=== PATIENT | female | born 1950 | race African-American/Black ===

== ENCOUNTER → 2020-07-16 12:32 | Outpatient (BNVA) | payer MEDICARE, SELFPAY | PROVIDERS: PCP Internal Medicine; Referring Provider Internal Medicine; Visit Provider Dietitian, Registered | DX: Z76.89 Persons encountering health services in other specified circumstances (principal) ==

== ENCOUNTER 2020-07-26 10:54 | Outpatient (REF) | payer MEDICARE, SELFPAY ==
[2020-07-26 12:45] LABS: Hemoglobin 10.8 g/dl (12.0-16.0); Mean Corpuscular HGB Conc 30.9 g/dl (31.0-35.0); Mean Corpuscular Hemoglobin 27.4 pg (27.0-33.0); Mean Corpuscular Volume 88.8 fL (80-98); Mean Platelet Volume 10.6 fL (9.4-12.3); Platelet Count 312 X10*3/uL (160-400); Red Blood Count 3.94 X10*6/uL (4.20-5.50); Red Cell Distribution Width 16.8 % (11.0-16.0); White Blood Count 8.7 X10*3/uL (4.8-10.8)
[2020-07-26 13:33] LABS: Alanine Aminotransferase 12 U/L (0-31); Alkaline Phosphatase 81 U/L (39-117); Anion Gap 10 (12-20); Aspartate Amino Transferase 15 U/L (5-31); Bilirubin Total 0.4 mg/dL (0.0-1.0); Blood Urea Nitrogen 25 mg/dL (9-16); Calcium 9.6 mg/dL (8.4-10.2); Carbon Dioxide 29 mmol/L (22-29); Chloride 104 mmol/L (96-108); Cholesterol 133 mg/dL; Estimated Glomerular Filt Rate 44; Glucose Fasting 98 mg/dL (60-99); HDL Cholesterol 48 mg/dL; LDL Cholesterol Calculated 72 mg/dl; Potassium 4.3 mmol/l (3.3-5.1); Sodium 139 mmol/L (135-145); Total Protein 7.1 g/dL (6.5-8.0); Triglycerides 66 mg/dL
[2020-07-26 13:39] LABS: Creatinine Urine 91.29 mg/dL; Microalbum/Creatinine Ratio Ur 15.3 ug/mg cr
[2020-07-26 13:57] LABS: Free T4 (Free Thyroxine) 0.88 ng/dL (0.71-1.85)
[2020-07-26 14:37] LABS: Vitamin B12 417 pg/mL (200-900)
[2020-07-27 19:32] LABS: LDL Cholesterol Direct 68 mg/dL (<100)
== END 2020-07-26 10:55 | disposition home or self-care (01) ==
LOC: HO.LAB 10:54
PROVIDERS: PCP Internal Medicine; Referring Provider Internal Medicine; Visit Provider Internal Medicine Endocrinology, Diabetes & Metabolism
DX: E10.8 Type 1 diabetes mellitus with unspecified complications (principal); E10.21 Type 1 diabetes mellitus with diabetic nephropathy; E10.65 Type 1 diabetes mellitus with hyperglycemia; E10.42 Type 1 diabetes mellitus with diabetic polyneuropathy; E10.319 Type 1 diabetes mellitus with unspecified diabetic retinopathy without macular edema; E66.9 Obesity, unspecified; E04.2 Nontoxic multinodular goiter; E78.5 Hyperlipidemia, unspecified; I10 Essential (primary) hypertension; Z79.899 Other long term (current) drug therapy; Z96.41 Presence of insulin pump (external) (internal); Z79.4 Long term (current) use of insulin; Z79.82 Long term (current) use of aspirin
CPT/HCPCS: 36415; 80053; 80061; 82043; 82607; 82947; 83721; 84439; 84443; 85027; 99214

== ENCOUNTER 2020-08-01 10:29 | Outpatient (REF) | payer MEDICARE, SELFPAY ==
--- NOTE | 2020-08-01 11:01 | US_ITS ---
EXAMINATION: US THYROID CLINICAL INFORMATION: Nontoxic multinodular goiter. COMPARISON: Ultrasound thyroid soft tissue dated 06/23/2018 TECHNIQUE: Linear transducer norton-scale and color Doppler examination with attention to the region of the thyroid. FINDINGS: SIZE: Measurements of the thyroid lobes and nodules are given in sagittal, anteroposterior and transverse dimensions respectively. Right Thyroid Lobe: 4.2 x 1.7 x 1.3 cm, volume 4.7 mL. Previously 4.0 x 1.3 x 1.1 cm, volume 3.0 mL. Parenchyma: The gland echotexture is homogeneous. Thyroid vascularity is normal. Left Thyroid Lobe: 4.0 x 1.8 x 1.2 cm, volume 4.6 mL. Previously 4.0 x 1.5 x 1.3 cm, volume 4.1 mL. Parenchyma: The gland echotexture is homogeneous. Thyroid vascularity is normal. Isthmus: 0.46 cm in maximum AP dimension. Previously 0.40 cm. RIGHT THYROID LOBE: There are 4 nodules seen. 1. Location: Lower pole. Size: 0.58 x 0.38 x 0.34 cm. Previous: 0.34 x 0.35 x 0.20 cm. Nodule characteristics: Heterogeneous isoechoic, smooth, no color flow. 2. Location: Interpolar. Size: 0.25 x 0.22 x 0.24 cm. Previous: 0.29 x 0.26 x 0.17 cm. Nodule characteristics: Cyst. 3. Location: Interpolar. Size: 0.44 x 0.31 x 0.27 cm. Previous: 0.32 x 0.45 x 0.26 cm. Nodule characteristics: Cyst. 4. Location: Interpolar. Size: 0.59 x 0.48 x 0.60 cm. Previous: 0.41 x 0.42 x 0.40 cm. Nodule characteristics: Colloid cyst. ISTHMUS: No nodules. LEFT THYROID LOBE: There are 3 nodules seen. 1. Location: Interpolar. Size: 0.32 x 0.20 x 0.20 cm. Previous: Not previously seen. Nodule characteristics: Cyst. 2. Location: Interpolar. Size: 0.27 x 0.20 x 0.23 cm. Previous: Not previously seen. Nodule characteristics: Colloid cyst. 3. Location: Upper pole. Size: 0.87 x 0.71 x 0.70 cm. Previous: 0.72 x 0.56 x 0.67 cm. Nodule characteristics: Cyst with avascular internal septations, increased through-transmission of sound, no calcification or color flow. NODES: No lymphadenopathy is seen in the tissue surrounding the thyroid gland. IMPRESSION: 1. Left: Solid heterogeneous isoechoic nodule lower pole right under 1 cm. 2. Right: Cyst with avascular internal septations upper pole under 1 cm. 3. Bilateral: Multiple bilateral incidental tiny cysts.
== END 2020-08-01 10:30 | disposition home or self-care (01) ==
LOC: HO.US 10:29
PROVIDERS: PCP Internal Medicine; Visit Provider Internal Medicine Endocrinology, Diabetes & Metabolism
DX: E04.2 Nontoxic multinodular goiter (principal)
CPT/HCPCS: 76536

== ENCOUNTER → 2020-11-02 10:31 | Outpatient (BNVA) | payer MEDICARE, SELFPAY | PROVIDERS: PCP Internal Medicine; Visit Provider Dietitian, Registered ==

== ENCOUNTER → 2021-01-07 14:24 | Outpatient (BNVA) | payer MEDICARE, SELFPAY | PROVIDERS: PCP Internal Medicine; Visit Provider Internal Medicine Endocrinology, Diabetes & Metabolism | DX: E10.65 Type 1 diabetes mellitus with hyperglycemia (principal); E10.42 Type 1 diabetes mellitus with diabetic polyneuropathy; E11.319 Type 2 diabetes mellitus with unspecified diabetic retinopathy without macular edema; E04.2 Nontoxic multinodular goiter; E78.5 Hyperlipidemia, unspecified; I10 Essential (primary) hypertension; E66.9 Obesity, unspecified | CPT/HCPCS: 82947; 99212 ==

== ENCOUNTER → 2021-01-08 12:20 | Outpatient (BNVA) | payer MEDICARE, SELFPAY | PROVIDERS: PCP Internal Medicine; Visit Provider Dietitian, Registered ==

== ENCOUNTER → 2021-01-23 10:36 | Outpatient (BNVA) | payer MEDICARE, SELFPAY | PROVIDERS: Visit Provider Internal Medicine Endocrinology, Diabetes & Metabolism | DX: E10.65 Type 1 diabetes mellitus with hyperglycemia (principal); E10.42 Type 1 diabetes mellitus with diabetic polyneuropathy; E66.9 Obesity, unspecified; E78.5 Hyperlipidemia, unspecified; E04.2 Nontoxic multinodular goiter; E11.319 Type 2 diabetes mellitus with unspecified diabetic retinopathy without macular edema; I10 Essential (primary) hypertension | CPT/HCPCS: 82947; 99212 ==

== ENCOUNTER 2021-01-24 10:25 | Outpatient (REF) | payer MEDICARE, SELFPAY ==
--- NOTE | ~2021-01-24 | MM_ITS ---
EXAMINATION: MM SCREENING DIGITAL BREAST TOMOSYNTHESIS, BILATERAL CLINICAL INFORMATION: Screening. Asymptomatic. The lifetime risk of breast cancer based on the Tyrer-Cuzick Model is 4%. COMPARISON: Mammography: 08/31/2019, 08/12/2018, 12/14/2017, 06/22/2017 TECHNIQUE: Digital breast tomosynthesis is performed in both the craniocaudal and mediolateral oblique views along with computer-aided detection (CAD). Synthesized 2D images are generated from the tomosynthesis. FINDINGS: There are scattered areas of fibroglandular density (ACR BI-RADS breast composition Category b). Breast tissue composition borders on heterogeneously dense in the upper outer quadrants. Parenchymal pattern is similar to prior studies. There is no developing density or interval mass or architectural abnormality. No abnormal calcifications. No significant changes from prior exams. MM/MM tomosynthesis screening BI IMPRESSION: No mammographic evidence of malignancy. ASSESSMENT: BI-RADS 1: Negative RECOMMENDATION: Routine annual mammography screening. This patient's information was entered into a reminder system with a target due date for their next mammogram.
--- NOTE | ~2021-01-24 | MM_ITS ---
EXAMINATION: BONE DENSITOMETRY CLINICAL INDICATION: Encounter for screening for osteoporosis. COMPARISON: This is the patient's baseline examination. TECHNIQUE: Using a [employer] DXA System (software version: 13.1) manufactured by [employer], dual-energy x-ray absorptiometry was performed of the lumbar spine and left hip. The images are of good technical quality. Summary results are attached. FINDINGS: AP SPINE L1-L2 (excluding L3 and L4): The data of L1-L4 has been changed to exclude the L3 and L4 vertebral bodies, because degenerative change at these levels may cause overestimation of lumbar spine density. BMD 1.219 g/cm2, Z-score 0.8, T-score 0.5, normal. LEFT FEMUR, NECK: BMD 1.075 g/cm2, Z-score 0.7, T-score 0.3, normal. LEFT FEMUR, TOTAL: BMD 1.164 g/cm2, Z-score 1.4, T-score 1.2, normal. IDENTIFIED RISK FACTORS: History of adult fracture. Secondary osteoporosis (early menopause). Hysterectomy. HISTORY OF FRACTURE: Femur/hip. MEDICATIONS: Calcium supplement and/or multivitamin. Vitamin D. MM/XR DEXA axial skeleton IMPRESSION: 1. DIAGNOSIS: Normal bone density based on the lowest T-score value of 0.3 in the femoral neck applying World Health Organization criteria. 2. 10-YEAR FRACTURE RISK PREDICTION, FRAX: Major osteoporotic fracture (clinical spine, forearm, hip or shoulder) 4.6%. Hip fracture 0.2%. 3. Treatment Recommendations: NOF guidelines recommend consideration for treatment in postmenopausal women and men age 50 and older presenting with the following: -A hip or vertebral (clinical or morphometric) fracture. -T-score less than or equal to -2.5 at the femoral neck or spine after appropriate evaluation to exclude secondary causes. -Low bone mass at the hip or spine and a 10-year fracture probability by FRAX of greater than or equal to 3% for hip fracture or greater than or equal to 20% for major osteoporotic fracture based on the [place] adapted WHO algorithm. 4. Other Recommendations: All treatment decisions require clinical judgment and consideration of individual patient factors, including patient preferences, comorbidities, previous drug use, risk factors not captured in the FRAX model (e.g. frailty, falls, vitamin D deficiency, increased bone turnover, interval significant decline in bone density) and possible under or overestimation of fracture risk by FRAX. FUTURE SCAN RECOMMENDATION: People with diagnosed cases of osteoporosis or at high risk for fracture should have regular bone mineral density tests. For patients eligible for Medicare, routine testing is allowed once every 2 years. The testing frequency can be increased to one year for patients who have rapidly progressing disease, those who are receiving or discontinuing medical therapy to restore bone mass, or have additional risk factors.
== END 2021-01-24 10:26 | disposition home or self-care (01) ==
LOC: HO.MAMMO 10:25
PROVIDERS: Visit Provider Internal Medicine
DX: Z12.31 Encounter for screening mammogram for malignant neoplasm of breast (principal); Z13.820 Encounter for screening for osteoporosis; Z78.0 Asymptomatic menopausal state; Z79.899 Other long term (current) drug therapy; Z98.890 Other specified postprocedural states; Z87.81 Personal history of (healed) traumatic fracture
CPT/HCPCS: 77063; 77067; 77080

== ENCOUNTER 2021-01-29 17:17 | Outpatient (REF) | payer MEDICARE, SELFPAY | END 2021-01-29 17:18 | disposition home or self-care (01) | LOC: HO.HOSX 17:17 | PROVIDERS: Visit Provider Orthopaedic Surgery | DX: Z13.89 Encounter for screening for other disorder (principal) ==

== ENCOUNTER → 2021-02-04 14:22 | Outpatient (BNVA) | payer MEDICARE, SELFPAY | PROVIDERS: Visit Provider Orthopaedic Surgery | DX: M18.11 Unilateral primary osteoarthritis of first carpometacarpal joint, right hand (principal); M65.312 Trigger thumb, left thumb | CPT/HCPCS: 99202 ==

== ENCOUNTER → 2021-04-08 10:22 | Outpatient (BNVA) | payer MEDICARE, SELFPAY | PROVIDERS: Visit Provider Internal Medicine Endocrinology, Diabetes & Metabolism | DX: E10.65 Type 1 diabetes mellitus with hyperglycemia (principal); E10.42 Type 1 diabetes mellitus with diabetic polyneuropathy; E11.319 Type 2 diabetes mellitus with unspecified diabetic retinopathy without macular edema; E66.9 Obesity, unspecified; E78.5 Hyperlipidemia, unspecified; I10 Essential (primary) hypertension; E04.2 Nontoxic multinodular goiter | CPT/HCPCS: 82947; 99212 ==

== ENCOUNTER → 2021-05-03 10:22 | Outpatient (BNVA) | payer MEDICARE, SELFPAY | PROVIDERS: Visit Provider Dietitian, Registered | DX: E10.65 Type 1 diabetes mellitus with hyperglycemia (principal); Z79.4 Long term (current) use of insulin; Z96.41 Presence of insulin pump (external) (internal) | CPT/HCPCS: 97803 ==

== ENCOUNTER → 2021-07-24 09:52 | Outpatient (BNVA) | payer MEDICARE, SELFPAY | PROVIDERS: Visit Provider Internal Medicine | DX: E10.65 Type 1 diabetes mellitus with hyperglycemia (principal); E78.5 Hyperlipidemia, unspecified; E55.9 Vitamin D deficiency, unspecified; E04.2 Nontoxic multinodular goiter; I10 Essential (primary) hypertension; R01.1 Cardiac murmur, unspecified | CPT/HCPCS: 82947; 83036; 99212 ==

== ENCOUNTER 2021-07-25 09:23 | Outpatient (REF) | payer MEDICARE, SELFPAY ==
[2021-07-25 10:09] LABS: Estimated Average Glucose 197 mg/dL; Hemoglobin A1c % 8.5 %
[2021-07-25 10:35] LABS: Creatinine Urine 68.54 mg/dL; Microalbumin Urine < 5.0 mg/L
[2021-07-25 10:38] LABS: Alanine Aminotransferase 20 U/L (0-31); Alkaline Phosphatase 89 U/L (39-117); Anion Gap 11 (12-20); Aspartate Amino Transferase 21 U/L (5-31); Bilirubin Total 0.3 mg/dL (0.0-1.0); Blood Urea Nitrogen 15 mg/dL (9-16); Calcium 9.8 mg/dL (8.4-10.2); Carbon Dioxide 28 mmol/L (22-29); Chloride 101 mmol/L (96-108); Cholesterol 146 mg/dL; Estimated Glomerular Filt Rate 42; Glucose Random 135 mg/dL (60-115); HDL Cholesterol 48 mg/dL; LDL Cholesterol Calculated 87 mg/dl; Potassium 4.4 mmol/L (3.3-5.1); Sodium 136 mmol/L (135-145); Total Protein 7.3 g/dL (6.5-8.0); Triglycerides 59 mg/dL
[2021-07-25 10:50] LABS: Free T4 (Free Thyroxine) 0.85 ng/dL (0.71-1.85); Thyroid Stimulating Hormone 1.61 uIU/mL (0.32-4.0); Vitamin D 25-OH Total 41.2 ng/mL (>30)
[2021-07-26 05:26] LABS: LDL Cholesterol Direct 80 mg/dL (<100)
[2021-08-01 20:26] LABS: Glutamic acid decarboxylase Ab <5 IU/mL (<5)
[2021-08-02 17:46] LABS: Insulinoma associated 2 aatb <5.4 U/mL (<5.4)
[2021-08-13 15:51] LABS: Islet Cell Antibody Screen NEGATIVE (NEGATIVE)
== END 2021-07-25 09:24 | disposition home or self-care (01) ==
LOC: HO.LAB 09:23
PROVIDERS: Visit Provider Internal Medicine
DX: E10.65 Type 1 diabetes mellitus with hyperglycemia (principal); E04.2 Nontoxic multinodular goiter; E55.9 Vitamin D deficiency, unspecified
CPT/HCPCS: 36415; 80053; 80061; 82043; 82306; 83036; 83721; 84439; 84443; 84681; 86255; 86341

== ENCOUNTER → 2021-08-02 11:26 | Outpatient (BNVA) | payer MEDICARE, SELFPAY | PROVIDERS: Visit Provider Dietitian, Registered | DX: E10.42 Type 1 diabetes mellitus with diabetic polyneuropathy (principal); E10.319 Type 1 diabetes mellitus with unspecified diabetic retinopathy without macular edema; E78.5 Hyperlipidemia, unspecified; I10 Essential (primary) hypertension; E04.2 Nontoxic multinodular goiter; E55.9 Vitamin D deficiency, unspecified; E66.9 Obesity, unspecified; Z87.891 Personal history of nicotine dependence; Z68.34 Body mass index [BMI] 34.0-34.9, adult; Z88.0 Allergy status to penicillin; Z88.8 Allergy status to other drugs, medicaments and biological substances; Z71.3 Dietary counseling and surveillance | CPT/HCPCS: 97803 ==

== ENCOUNTER → 2021-08-19 10:22 | Outpatient (BNVA) | payer MEDICARE, SELFPAY | PROVIDERS: PCP Internal Medicine; Visit Provider Registered Nurse Diabetes Educator | DX: E10.65 Type 1 diabetes mellitus with hyperglycemia (principal) | CPT/HCPCS: 99211 ==

== ENCOUNTER 2021-09-03 14:25 | Outpatient (REF) | payer MEDICARE, SELFPAY ==
--- NOTE | ~2021-09-03 | US_ITS ---
EXAMINATION: US THYROID CLINICAL INFORMATION: Nontoxic multinodular goiter. COMPARISON: Thyroid ultrasound 08/01/2020. TECHNIQUE: Linear transducer norton-scale and color Doppler examination with attention to the region of the thyroid. FINDINGS: SIZE: Measurements of the thyroid lobes and nodules are given in sagittal, anteroposterior and transverse dimensions respectively. Right Thyroid Lobe: 4.4 x 2.1 x 1.8 cm, volume 8.6 mL. Previously 4.2 x 1.7 x 1.3 cm, volume 4.7 mL. Parenchyma: The gland echotexture is homogeneous. Thyroid vascularity is normal. Left Thyroid Lobe: 3.5 x 1.8 x 1.4 cm, volume 4.5 mL. Previously 4.0 x 1.8 x 1.2 cm, volume 4.6 mL. Parenchyma: The gland echotexture is homogeneous. Thyroid vascularity is normal. Isthmus: 0.42 cm in maximum AP dimension. Previously 0.46 cm. Estimated total number of nodules greater than or equal to 1 cm: 0. Nursery Hand nodules are described as follows: 1. Location: Right upper. Size: 0.7 x 0.51 x 0.68 cm, volume 0.13 mL. Previously: 0.59 x 0.48 x 0.6 cm, volume 0.09 mL. Nodule characteristics: Composition: Cystic(0). Echogenicity: None. Shape: Wider than taller. Margins: Smooth (0). Echogenic Foci: None (0). ACR TI-RADS total points: 0 ACR TI-RADS category: 1 Significant change in size (>/= 20% in 2 dimensions and minimal increase of 2 mm or 50% or greater increase in volume): None Change in features: None Change in ACR TI-RADS risk category: None 2. Location: Left upper. Size: 0.69 x 0.58 x 0.85 cm, volume 0.18 mL. Previously: 0.87 x 0.71 x 0.7 cm, volume 0.23 mL. Nodule characteristics: Composition: Mixed cystic and solid (1). Echogenicity: Hypoechoic (2). Shape: Not taller than wide (0). Margins: Smooth (0). Echogenic Foci: None (0). ACR TI-RADS total points: 3 ACR TI-RADS category: 1 Significant change in size (>/= 20% in 2 dimensions and minimal increase of 2 mm or 50% or greater increase in volume): None Change in features: None Change in ACR TI-RADS risk category: None There are multiple small cystic nodules seen in both thyroid lobes. NODES: No lymphadenopathy is seen in the tissue surrounding the thyroid gland. US/US thyroid IMPRESSION: There are multiple bilateral small cystic and colloid nodules. The largest nodules in right upper pole and left upper pole are measured and are stable and nonsuspicious based on TI-RADS category. ACR TI-RADS RECOMMENDATION REFERENCE: Ultrasound-guided fine-needle aspiration, followup ultrasound, no further follow up. * TR1 (0 point) and TR 2 (2 points): No FNA or follow up * TR3 (3 points): FNA if more than or equal to 2.5 cm in maximum dimension, followup ultrasound in 1, 3 and 5 years if 1.5 to 2.4 cm in maximum dimension. * TR4 (4-6 points): FNA if more than or equal to 1.5 cm in maximum dimension, followup ultrasound in 1, 2, 3 and 5 years if 1 to 1.4 cm in maximum dimension. * TR5 (more than or equal to 7 points): FNA if more than or equal to 1 cm in maximum dimension, followup ultrasound every year for 5 years if 0.5 to 0.9 cm in maximum dimension. * TR3, TR4 or TR5 nodules that are below the size threshold for follow up receive no follow up.
== END 2021-09-03 14:26 | disposition home or self-care (01) ==
LOC: HO.US 14:25
PROVIDERS: Visit Provider Internal Medicine
DX: E04.2 Nontoxic multinodular goiter (principal)
CPT/HCPCS: 76536

== ENCOUNTER → 2021-09-16 13:24 | Outpatient (BNVA) | payer MEDICARE, SELFPAY | PROVIDERS: PCP Internal Medicine; Visit Provider Internal Medicine Cardiovascular Disease | DX: E10.42 Type 1 diabetes mellitus with diabetic polyneuropathy (principal); R01.1 Cardiac murmur, unspecified | CPT/HCPCS: 93005; 99202; 99211 ==

== ENCOUNTER → 2021-11-01 10:45 | Outpatient (BNVA) | payer MEDICARE, SELFPAY | PROVIDERS: PCP Internal Medicine; Visit Provider Dietitian, Registered | DX: E10.65 Type 1 diabetes mellitus with hyperglycemia (principal) | CPT/HCPCS: 97803 ==

== ENCOUNTER → 2021-11-04 12:19 | Outpatient (BNVA) | payer MEDICARE, SELFPAY | PROVIDERS: PCP Internal Medicine; Visit Provider Registered Nurse Diabetes Educator | DX: E10.42 Type 1 diabetes mellitus with diabetic polyneuropathy (principal); Z79.4 Long term (current) use of insulin; Z96.41 Presence of insulin pump (external) (internal) | CPT/HCPCS: 99211 ==

== ENCOUNTER → 2021-12-03 13:26 | Outpatient (REF) | payer MEDICARE, SELFPAY ==
--- NOTE | 2021-12-03 13:30 | CA_ITS ---
Transthoracic Echocardiogram Patient (Last, First, Middle): Manda Schwarz A Gender: Female Date of : 1950 Age: 71 Procedure Date: 12/03/2021 Procedure Type: Transthoracic Echocardiogram Location: OP Height: 157.48 cm Weight: 85.28 kg BSA: 1.86 m2 Heart Rate: bpm BP: 130 / 80 mmHg Pilling Machine Operator: VH/OT Referring MD: Wero Fields MD Symptoms: R01.1 - Cardiac murmur, unspecified Study Quality: Fair ECG Rhythm: Sinus Conclusions: - The left ventricular systolic function is normal. The calculated ejection fraction is 69% by biplane method. - There is mild to moderate aortic valve stenosis. - There is mild mitral annular calcification. Findings Left Ventricle Normal left ventricular cavity size. There is mildly increased left ventricular wall thickness. The left ventricular systolic function is normal. The calculated ejection fraction is 69% by biplane method. There is no evidence of regional wall motion abnormalities. E/E prime ratio is between 8 and 15 consistent with indeterminate filling pressures. Evidence suggests grade I (mild) diastolic dysfunction. [id number] focal hypertrophy of the basal septum. Right Ventricle Normal right ventricular cavity size and systolic function. Atria Both atria are normal in size. Aortic Valve There is moderate calcification of the aortic valve. There is mild to moderate aortic valve stenosis. The peak aortic velocity is 2.70 m/s with a calculated peak gradient of 29 mmHg. The mean gradient is 17 mmHg. The aortic valve area is 1.12 cm2. There is no aortic valve regurgitation. Dimensionless index 0.43. Mitral Valve There is mild mitral annular calcification. There is no mitral valve regurgitation. There is no mitral valve stenosis. Pulmonic Valve The pulmonic valve was not well visualized. Tricuspid Valve Normal tricuspid valve structure. There is trace tricuspid valve regurgitation. The pulmonary artery systolic pressure is normal. Great Vessels The asc aorta is normal in size. Venous The inferior vena cava is normal in size and collapses greater than 50% with inspiration. Pericardium/Pleural There is no evidence of pericardial effusion. Prior Study Comparison No prior study available for comparison. Measurements 2D Linear Measurements IVSd: 1.42 0.6-0.9/0.6-1.0 cm LVIDd: 3.27 3.9-5.3/4.2-5.9 cm LVIDd Index: 1.76 2.4-3.2/2.2-3.1 cm/m2 LVIDs: 1.91 2.0-3.6 cm LVPWd: 1.25 0.7-1.1 cm Ao Root: 2.90 2.1-3.5 cm LA Diam: 3.50 2.7-3.8/3.0-4.0 cm LAIDs Index: 1.88 1.5-2.3 cm/m2 LV Mass: 181.60 67-162/88-224 g LV Mass Index: 97.64 43-95/49-115 g/m2 LVOT Diam: 1.80 3.0+(-)1.3 cm 2D Systolic Function EF 4C: 72.50 >55% EF 2C: 57.40 >55% EF BiP: 68.60 >55% Mitral Valve MV VTI: 0.30 MV Pk Valerio: 1.03 MV Mn Valerio: 0.48 MV Pk Grad: 4.00 MV Mn Grad: 1.00 MV Pk E: 0.87 MV PK A: 0.96 MV Decel Time: 267.00 E/A: 0.90 E'Lateral: 8.49 E'Medial: 5.11 E/E' Med: 17.00 E/E' Lat: 10.20 PHT: 78.00 MVA PHT: 2.82 MVA Continuity: 2.45 Decel [place]: 3.26 Aortic Valve AoV Pk Valerio: 2.70 AoV Mn Valerio: 1.96 AoV VTI: 0.65 AoV Pk Grad: 29.00 Aov Mn Grad: 17.00 ASHOK Cont.VTI: 1.12 LVOT LVOT Pk Valerio: 1.17 LVOT Mn Valerio: 0.78 LVOT VTI: 0.29 LVOT Pk Grad: 5.00 LVOT Mn Grad: 3.00 LVOT Diam: 1.80 LVOT Area: 2.54 Diastolic Function MV Pk E: 0.87 MV Pk A: 0.96 E/A: 0.90 E'Medial: 5.11 E/E' Med: 17.00 E' Laterial: 8.49 E/E' Lat: 10.20 Great Vessels Aorta Ao Root-2D: 2.90 2.0-3.7 cm Ao Asc: 3.00 2.1-3.4 cm Updated in Other Vendor System with Status of Final Eloy Montana MD electronically signed on 12/04/2021 12:24:51 PM with status of Final
== END ==
LOC: HO.CARD 13:26
PROVIDERS: Visit Provider Internal Medicine Cardiovascular Disease
DX: R01.1 Cardiac murmur, unspecified (principal)
CPT/HCPCS: 93306

== ENCOUNTER 2022-01-01 09:24 | Outpatient (REF) | payer MEDICARE, SELFPAY ==
[2022-01-01 12:48] LABS: Alanine Aminotransferase 18 U/L (0-31); Alkaline Phosphatase 86 U/L (39-117); Anion Gap 13 (12-20); Aspartate Amino Transferase 17 U/L (5-31); Bilirubin Total 0.4 mg/dL (0.0-1.0); Blood Urea Nitrogen 22 mg/dL (9-16); Calcium 10.2 mg/dL (8.4-10.2); Carbon Dioxide 27 mmol/L (22-29); Chloride 102 mmol/L (96-108); Estimated Glomerular Filt Rate 44; Glucose Random 121 mg/dL (60-115); Potassium 4.5 mmol/L (3.3-5.1); Sodium 137 mmol/L (135-145); Total Protein 7.5 g/dL (6.5-8.0)
== END 2022-01-01 09:25 | disposition home or self-care (01) ==
LOC: HO.LAB 09:24
PROVIDERS: PCP Internal Medicine; Visit Provider Internal Medicine
DX: E10.65 Type 1 diabetes mellitus with hyperglycemia (principal); E10.21 Type 1 diabetes mellitus with diabetic nephropathy; E78.5 Hyperlipidemia, unspecified; I10 Essential (primary) hypertension; E55.9 Vitamin D deficiency, unspecified; E04.2 Nontoxic multinodular goiter; Z79.899 Other long term (current) drug therapy; Z79.4 Long term (current) use of insulin; Z46.81 Encounter for fitting and adjustment of insulin pump; Z87.891 Personal history of nicotine dependence
CPT/HCPCS: 36415; 80053; 82947; 83036; 84681; 99212

== ENCOUNTER → 2022-01-09 10:22 | Outpatient (BNVA) | payer MEDICARE, SELFPAY | PROVIDERS: PCP Internal Medicine; Visit Provider Internal Medicine Cardiovascular Disease | DX: I35.0 Nonrheumatic aortic (valve) stenosis (principal); I10 Essential (primary) hypertension | CPT/HCPCS: 99212 ==

== ENCOUNTER 2022-01-30 12:44 | Outpatient (REF) | payer MEDICARE, SELFPAY ==
--- NOTE | ~2022-01-30 | MM_ITS ---
EXAMINATION: MM SCREENING DIGITAL BREAST TOMOSYNTHESIS, BILATERAL CLINICAL INFORMATION: Screening. Asymptomatic. The lifetime risk of breast cancer based on the Tyrer-Cuzick Model is 3.0%. COMPARISON: Mammography: January 24, 2021 and studies dating back to May 22, 2014 TECHNIQUE: Digital breast tomosynthesis is performed in both the craniocaudal and mediolateral oblique views along with computer-aided detection (CAD). Synthesized 2D images are generated from the tomosynthesis. FINDINGS: The breasts are heterogeneously dense, which may obscure small masses (ACR BI-RADS breast composition Category c). There are no significant masses, abnormal calcifications, or other abnormalities. Stable calcifications are noted bilaterally. MM/MM tomosynthesis screening BI IMPRESSION: There are no significant changes from prior study. ASSESSMENT: BI-RADS 1: Negative RECOMMENDATION: Routine annual mammography screening. This patient's information was entered into a reminder system with a target due date for their next mammogram.
== END 2022-01-30 12:45 | disposition home or self-care (01) ==
LOC: HO.MAMMO 12:44
PROVIDERS: PCP Internal Medicine; Visit Provider Internal Medicine
DX: Z12.31 Encounter for screening mammogram for malignant neoplasm of breast (principal)
CPT/HCPCS: 77063; 77067

== ENCOUNTER → 2022-02-05 10:51 | Outpatient (BNVA) | payer MEDICARE, SELFPAY | PROVIDERS: PCP Internal Medicine; Visit Provider Dietitian, Registered | DX: E10.65 Type 1 diabetes mellitus with hyperglycemia (principal); E10.42 Type 1 diabetes mellitus with diabetic polyneuropathy; E10.319 Type 1 diabetes mellitus with unspecified diabetic retinopathy without macular edema; Z71.3 Dietary counseling and surveillance | CPT/HCPCS: 97803 ==

== ENCOUNTER 2022-02-28 10:23 | Outpatient (REF) | payer MEDICARE, SELFPAY ==
[2022-02-28 11:36] LABS: MANUAL DIFF FLAG NO
[2022-02-28 11:50] LABS: Basophils Absolute Auto 0.1 X10*3/uL (0.0-0.2); Basophils Percent Auto 1.5 % (0-2); Eosinophils Absolute Auto 0.2 X10*3/uL (0.0-0.4); Hemoglobin 10.8 g/dl (12.0-16.0); Imm Gran Abs Auto 0.03 X10*3/uL (0.00-0.03); Imm Gran Pct Auto 0.4 % (0.0-0.4); Lymphocytes Absolute Auto 2.8 X10*3/uL (1.2-4.9); Lymphocytes Percent Auto 37.3 % (20-40); Mean Corpuscular HGB Conc 31.8 g/dl (31.0-35.0); Mean Corpuscular Hemoglobin 27.6 pg (27.0-33.0); Mean Corpuscular Volume 86.7 fL (80.0-98.0); Mean Platelet Volume 10.3 fL (9.4-12.3); Monocytes Absolute Auto 0.4 X10*3/uL (0.1-1.2); Monocytes Percent Auto 5.7 % (2-11); Neutrophils Percent Auto 52.1 % (45-73); Platelet Count 347 X10*3/uL (160-400); Red Blood Count 3.92 X10*6/uL (4.20-5.50); Red Cell Distribution Width 17.1 % (11.0-16.0); White Blood Count 7.6 X10*3/uL (4.8-10.8)
[2022-02-28 12:20] LABS: Gamma Glutamyl Transpeptidase 15 U/L (7-33)
[2022-02-28 12:36] LABS: HBS Num1 10.67 mIU/mL (0-7.99); HBc Num1 0.09 S/CO (0.00-0.79); HBsAGNum1 0.14 S/CO (0.00-0.99); HIV AB/AG Nonreactive (Nonreactive); HIV Num 1 0.08 S/CO (0.00-0.99); Hepatitis A Antibody IgM 0.17 Index (0-0.79); Hepatitis B Core Antibody Nonreactive (Nonreactive); Hepatitis B Surface Antigen Negative (Negative); ~HepC Num1 0.08 S/CO (0.00-0.79); ~Hepatitis A Antibody IgM Nonreactive (Nonreactive); ~Hepatitis C Antibody Nonreactive (Nonreactive)
[2022-02-28 12:37] LABS: Ferritin 56 ng/mL (10-250)
[2022-02-28 13:31] LABS: HBS Num2 9.46 mIU/mL (0-7.99); HBS Num3 9.63 mIU/mL (0-7.99); ~Hepatitis B Surface Antibody GRAYZONE (Nonreactive)
[2022-03-03 13:16] LABS: Alpha Fetoprotein 2.8 ng/mL
[2022-03-04 13:37] LABS: Mitochondrial Antibodies NEGATIVE (NEGATIVE)
[2022-03-05 14:07] LABS: Smooth Muscle Antibody <20 U (<20)
== END 2022-02-28 10:24 | disposition home or self-care (01) ==
LOC: HO.LAB 10:23
PROVIDERS: PCP Internal Medicine; Visit Provider Nurse Practitioner
DX: Z11.4 Encounter for screening for human immunodeficiency virus [HIV] (principal); R74.01 Elevation of levels of liver transaminase levels
CPT/HCPCS: 36415; 82105; 82728; 82977; 85025; 86015; 86255; 86256; 86704; 86706; 86709; 86803; 87340; 87389; 99202

== ENCOUNTER → 2022-03-25 10:55 | Outpatient (BNVA) | payer MEDICARE, SELFPAY | PROVIDERS: PCP Internal Medicine; Visit Provider Dietitian, Registered | DX: E10.65 Type 1 diabetes mellitus with hyperglycemia (principal); E66.9 Obesity, unspecified; Z71.3 Dietary counseling and surveillance | CPT/HCPCS: 97803 ==

== ENCOUNTER 2022-04-01 10:23 | Outpatient (REF) | payer MEDICARE, SELFPAY ==
[2022-04-01 12:33] LABS: Alanine Aminotransferase 17 U/L (0-31); Albumin Level 4.1 g/dL (3.5-5.0); Alkaline Phosphatase 90 U/L (39-117); Anion Gap 14 (12-20); Aspartate Amino Transferase 18 U/L (5-31); Bilirubin Total 0.5 mg/dL (0.0-1.0); Blood Urea Nitrogen 20 mg/dL (9-16); Calcium 9.9 mg/dL (8.4-10.2); Carbon Dioxide 25 mmol/L (22-29); Chloride 103 mmol/L (96-108); Cholesterol 160 mg/dL; Estimated Glomerular Filt Rate 39; Glucose Random 136 mg/dL (60-115); HDL Cholesterol 50 mg/dL; LDL Cholesterol Calculated 93 mg/dl; Potassium 4.5 mmol/L (3.3-5.1); Sodium 137 mmol/L (135-145); Total Protein 7.6 g/dL (6.5-8.0); Triglycerides 88 mg/dL
[2022-04-01 12:42] LABS: Creatinine Urine 34.98 mg/dL; Microalbumin Urine < 5.0 mg/L
[2022-04-01 13:44] LABS: Estimated Average Glucose 200 mg/dL; Hemoglobin A1c % 8.6 %
[2022-04-03 09:17] LABS: LDL Cholesterol Direct 89 mg/dL (<100)
== END 2022-04-01 10:24 | disposition home or self-care (01) ==
LOC: HO.LAB 10:23
PROVIDERS: PCP Internal Medicine; Visit Provider Internal Medicine
DX: E10.65 Type 1 diabetes mellitus with hyperglycemia (principal)
CPT/HCPCS: 36415; 80053; 80061; 82043; 83036; 83721

== ENCOUNTER 2022-04-02 10:26 | Outpatient (REF) | payer MEDICARE, SELFPAY ==
--- NOTE | ~2022-04-02 | US_ITS ---
EXAMINATION: US COMPLETE ABDOMEN WITH LIVER ELASTOGRAPHY CLINICAL INFORMATION: Elevation of liver transaminase levels. COMPARISON: None. TECHNIQUE: Real-time imaging of the abdominal viscera. Noninvasive ultrasound liver fibrosis assessment is performed using Jennifer ElastPQ point quantification shear wave elastography (2D-SWE) with a C5-2 MHz transducer. Multiple elastography samples are obtained. FINDINGS: PANCREAS: The visualized pancreatic head and body are normal in appearance. The remainder of the pancreas is obscured from visualization by the overlying bowel gas. ABDOMINAL AORTA: The proximal, middle, and distal aortic segments are normal in caliber. INFERIOR VENA CAVA: Visualized portions are normal. LIVER: The liver demonstrates normal size, contour and increased echogenicity. No focal lesion or intrahepatic biliary duct dilatation. The right lobe measures 14.3 cm in length. The left lobe measures 11.8 cm in length. Portal flow is hepatopetal. Shear wave liver elastography median stiffness is 2.20 m/s (reference: normal median stiffness is 1.3 m/s or less). IQR/median stiffness to assess sampling precision is 0.21 (reference: good quality data set is IQR/median stiffness of 0.15 or less). GALLBLADDER: Gallbladder wall thickness is 0.3. The gallbladder is physiologically distended without evidence of stones, sludge, polyps, wall thickening or pericholecystic fluid. COMMON BILE DUCT: Normal in caliber measuring 0.7 cm in diameter. RIGHT KIDNEY: There are punctate calcifications midpole without twinkle measuring 0.3 x 0.2 cm. No hydronephrosis. No renal calculi or focal parenchymal lesions. The kidney measures 9.0 cm in maximum dimension. LEFT KIDNEY: Normal. No hydronephrosis. No renal calculi or focal parenchymal lesions. The kidney measures 10.0 cm in maximum dimension. SPLEEN: Normal. The spleen measures 7.3 cm in maximum dimension. FREE FLUID: None. US/US abdomen comp w elastography IMPRESSION: 1. There is punctate calcification in midpole without twinkle artifact in the right kidney. Mild hepatic steatosis without focal lesion. 2. Liver elastography: Median liver stiffness measures 2.20 m/s corresponding to cACLD REFERENCE: Society of Radiologists in Ultrasound Liver Stiffness Thresholds (2019): LIVER STIFFNESS THRESHOLDS: *Liver Stiffness equal or less than 1.3 m/s: High probability of being normal. *Liver Stiffness less than 1.7 m/s: In the absence of other known clinical signs, rules out compensated advanced chronic liver disease. *Liver Stiffness 1.7-2.1 m/s: Suggestive of compensated advanced chronic liver disease but need further test for confirmation. *Liver Stiffness over 2.1 m/s: Rules in compensated advanced chronic liver disease. *Liver Stiffness over 2.4 m/s: Suggestive of clinically significant portal hypertension. QUALITY OF DATA SET: *IQR/Median value equal or less than 0.15 implies a quality data set. *IQR/Median value over 0.15 implies a poor quality data set. SIGNIFICANT CHANGE FROM PRIOR EXAM: Significant change if liver stiffness measurement is 10% or greater from prior exam. OTHER CONSIDERATIONS: The stage of liver fibrosis may be overestimated in the setting of acute hepatitis, liver inflammation, elevated liver function tests, hepatic vascular congestion, obstructive cholestasis, non-fasting state, and infiltrative diseases such as amyloidosis and lymphoma. In some patients with NAFLD, the liver stiffness thresholds for compensated advanced chronic liver disease may be lower. In causes other than viral hepatitis and NAFLD, liver stiffness thresholds are not well established.
== END 2022-04-02 10:27 | disposition home or self-care (01) ==
LOC: HO.US 10:26
PROVIDERS: Visit Provider Nurse Practitioner
DX: R74.01 Elevation of levels of liver transaminase levels (principal)
CPT/HCPCS: 76705; 76981

== ENCOUNTER → 2022-04-07 14:36 | Outpatient (BNVA) | payer MEDICARE, SELFPAY | PROVIDERS: PCP Internal Medicine; Visit Provider Nurse Practitioner | DX: K75.81 Nonalcoholic steatohepatitis (NASH) (principal) | CPT/HCPCS: 99212 ==

== ENCOUNTER → 2022-04-09 09:43 | Outpatient (BNVA) | payer MEDICARE, SELFPAY | PROVIDERS: PCP Internal Medicine; Visit Provider Internal Medicine | DX: E10.65 Type 1 diabetes mellitus with hyperglycemia (principal); E78.5 Hyperlipidemia, unspecified; I10 Essential (primary) hypertension; E55.9 Vitamin D deficiency, unspecified; E04.2 Nontoxic multinodular goiter; Z79.899 Other long term (current) drug therapy; Z96.41 Presence of insulin pump (external) (internal) | CPT/HCPCS: Q3014 ==

== ENCOUNTER → 2022-05-15 12:22 | Outpatient (BNVA) | payer MEDICARE, SELFPAY | PROVIDERS: PCP Internal Medicine; Visit Provider Registered Nurse Diabetes Educator | DX: E10.42 Type 1 diabetes mellitus with diabetic polyneuropathy (principal); Z87.891 Personal history of nicotine dependence; Z46.81 Encounter for fitting and adjustment of insulin pump | CPT/HCPCS: 99211 ==

== ENCOUNTER → 2022-07-04 11:22 | Outpatient (BNVA) | payer MEDICARE, SELFPAY | PROVIDERS: PCP Internal Medicine; Visit Provider Dietitian, Registered | DX: E10.65 Type 1 diabetes mellitus with hyperglycemia (principal) | CPT/HCPCS: 97803 ==

== ENCOUNTER → 2022-07-14 10:22 | Outpatient (BNVA) | payer MEDICARE, SELFPAY | PROVIDERS: PCP Internal Medicine; Visit Provider Internal Medicine Cardiovascular Disease | DX: I35.0 Nonrheumatic aortic (valve) stenosis (principal); I10 Essential (primary) hypertension | CPT/HCPCS: 93005; 99212 ==

== ENCOUNTER → 2022-07-15 12:28 | Outpatient (BNVA) | payer MEDICARE, SELFPAY | PROVIDERS: PCP Internal Medicine; Visit Provider Registered Nurse Diabetes Educator | DX: Z46.81 Encounter for fitting and adjustment of insulin pump (principal); E10.65 Type 1 diabetes mellitus with hyperglycemia; Z79.4 Long term (current) use of insulin | CPT/HCPCS: 99211 ==

== ENCOUNTER → 2022-09-17 12:20 | Outpatient (BNVA) | payer MEDICARE, SELFPAY | PROVIDERS: PCP Internal Medicine; Visit Provider Registered Nurse Diabetes Educator | DX: Z46.81 Encounter for fitting and adjustment of insulin pump (principal); E10.65 Type 1 diabetes mellitus with hyperglycemia | CPT/HCPCS: 99211 ==

== ENCOUNTER 2022-10-10 10:26 | Outpatient (REF) | payer MEDICARE, SELFPAY ==
[2022-10-10 11:49] LABS: Alanine Aminotransferase 14 U/L (0-31); Alkaline Phosphatase 84 U/L (39-117); Anion Gap 13 (12-20); Aspartate Amino Transferase 17 U/L (5-31); Bilirubin Total 0.4 mg/dL (0.0-1.0); Blood Urea Nitrogen 21 mg/dL (9-16); Calcium 9.8 mg/dL (8.4-10.2); Carbon Dioxide 26 mmol/L (22-29); Chloride 104 mmol/L (96-108); Estimated Glomerular Filt Rate 43; Glucose Random 95 mg/dL (60-115); Potassium 4.2 mmol/L (3.3-5.1); Sodium 139 mmol/L (135-145); Total Protein 7.2 g/dL (6.5-8.0)
[2022-10-10 11:57] LABS: Estimated Average Glucose 203 mg/dL; Hemoglobin A1c % 8.7 %
[2022-10-10 12:49] LABS: Creatinine Urine 80.57 mg/dL
== END 2022-10-10 10:27 | disposition home or self-care (01) ==
LOC: HO.LAB 10:26
PROVIDERS: PCP Internal Medicine; Visit Provider Internal Medicine
DX: E10.65 Type 1 diabetes mellitus with hyperglycemia (principal)
CPT/HCPCS: 36415; 80053; 83036

== ENCOUNTER → 2022-10-16 13:31 | Outpatient (BNVA) | payer MEDICARE, SELFPAY | PROVIDERS: PCP Internal Medicine; Visit Provider Internal Medicine | DX: E04.2 Nontoxic multinodular goiter (principal); E10.65 Type 1 diabetes mellitus with hyperglycemia; E10.21 Type 1 diabetes mellitus with diabetic nephropathy; E10.42 Type 1 diabetes mellitus with diabetic polyneuropathy; E10.319 Type 1 diabetes mellitus with unspecified diabetic retinopathy without macular edema; I10 Essential (primary) hypertension; E78.5 Hyperlipidemia, unspecified; E55.9 Vitamin D deficiency, unspecified; Z83.3 Family history of diabetes mellitus; Z79.4 Long term (current) use of insulin; Z96.41 Presence of insulin pump (external) (internal) | CPT/HCPCS: 82947; 99212 ==

== ENCOUNTER 2022-11-04 09:44 | Outpatient (REF) | payer MEDICARE, SELFPAY ==
--- NOTE | ~2022-11-04 | US_ITS ---
EXAMINATION: US THYROID CLINICAL INFORMATION: Nontoxic multinodular goiter. COMPARISON: Ultrasound thyroid 09/03/2021 and 08/01/2020. TECHNIQUE: Linear transducer grayscale and color Doppler examination with attention to the region of the thyroid. FINDINGS: SIZE: Measurements of the thyroid lobes and nodules are given in sagittal, anteroposterior and transverse dimensions respectively. Right Thyroid Lobe: 4.5 x 1.9 x 1.6 cm, volume 7.3 mL. Previously 4.4 x 2.1 x 1.8 cm, volume 8.6 mL. Parenchyma: The gland echotexture is homogeneous. Thyroid vascularity is normal. Left Thyroid Lobe: 4.5 x 1.7 x 1.4 cm, volume 5.7 mL. Previously 3.5 x 1.8 x 1.4 cm, volume 4.5 mL. Parenchyma: The gland echotexture is homogeneous. Thyroid vascularity is normal. Isthmus: 0.5 cm in maximum AP dimension. Previously 0.4 cm. Estimated total number of nodules greater than or equal to 1 cm: 0. Sales & Service Associate nodules are described as follows: 1. Location: Right superior. Size: 0.6 x 0.6 x 0.7 cm, volume 0.1 mL. Previously: 0.7 x 0.5 x 0.7 cm, volume 0.1 mL. Nodule characteristics: Composition: Cystic(0). ACR TI-RADS total points: 0 Previous: 0 ACR TI-RADS category: 1 Previous: 1 Significant change in size (>/= 20% in 2 dimensions and minimal increase of 2 mm or 50% or greater increase in volume): None Change in features: None Change in ACR TI-RADS risk category: None 2. Location: Left superior. Size: 0.6 x 0.6 x 0.7 cm, volume 0.1 mL. Previously: 0.7 x 0.6 x 0.9 cm, volume 0.2 mL. Nodule characteristics: Composition: Mixed cystic and solid (1). Echogenicity: Hypoechoic (2). Shape: Not taller than wide (0). Margins: Smooth (0). Echogenic Foci: None (0). ACR TI-RADS total points: 3 Previous: 3 ACR TI-RADS category: 3 Previous: 3 Significant change in size (>/= 20% in 2 dimensions and minimal increase of 2 mm or 50% or greater increase in volume): None Change in features: None Change in ACR TI-RADS risk category: No change. There are multiple anechoic colloid cysts measuring less than 1 cm. NODES: No lymphadenopathy is seen in the tissue surrounding the thyroid gland. US/US thyroid IMPRESSION: 1. Small subcentimeter thyroid nodules. No new nodules seen. 2. TR1 (0 point) and TR 2 (2 points): 3. TR4 (4-6 points): FNA if more than or equal to 1.5 cm in maximum dimension, followup ultrasound in 1, 2, 3 and 5 years if 1 to 1.4 cm in maximum dimension. 4. TR5 (more than or equal to 7 points): FNA if more than or equal to 1 cm in maximum dimension, followup ultrasound every year for 5 years if 0.5 to 0.9 cm in maximum dimension.
== END 2022-11-04 09:45 | disposition home or self-care (01) ==
LOC: HO.US 09:44
PROVIDERS: PCP Internal Medicine; Visit Provider Internal Medicine
DX: E04.2 Nontoxic multinodular goiter (principal)
CPT/HCPCS: 76536

== ENCOUNTER → 2022-12-08 12:53 | Outpatient (BNVA) | payer MEDICARE, SELFPAY | PROVIDERS: PCP Internal Medicine; Visit Provider Dietitian, Registered | DX: E10.65 Type 1 diabetes mellitus with hyperglycemia (principal); E10.42 Type 1 diabetes mellitus with diabetic polyneuropathy; E10.319 Type 1 diabetes mellitus with unspecified diabetic retinopathy without macular edema; E55.9 Vitamin D deficiency, unspecified; Z71.3 Dietary counseling and surveillance | CPT/HCPCS: 97803 ==

== ENCOUNTER 2023-01-22 11:22 | Outpatient (REF) | payer MEDICARE, SELFPAY ==
[2023-01-22 12:09] LABS: Estimated Average Glucose 209 mg/dL; Hemoglobin A1c % 8.9 %
[2023-01-22 12:34] LABS: Alanine Aminotransferase 15 U/L (0-31); Alkaline Phosphatase 89 U/L (39-117); Anion Gap 14 (12-20); Aspartate Amino Transferase 16 U/L (5-31); Bilirubin Total 0.5 mg/dL (0.0-1.0); Blood Urea Nitrogen 24 mg/dL (9-16); Carbon Dioxide 24 mmol/L (22-29); Chloride 104 mmol/L (96-108); Cholesterol 165 mg/dL; Estimated Glomerular Filt Rate 44; Glucose Random 105 mg/dL (60-115); HDL Cholesterol 49 mg/dL; LDL Cholesterol Calculated 103 mg/dl; Potassium 4.3 mmol/L (3.3-5.1); Sodium 138 mmol/L (135-145); Total Protein 7.2 g/dL (6.5-8.0); Triglycerides 66 mg/dL
[2023-01-22 13:37] LABS: Creatinine Urine 90.77 mg/dL; Microalbum/Creatinine Ratio Ur 7.7 ug/mg cr
[2023-01-24 07:28] LABS: LDL Cholesterol Direct 87 mg/dL (<100)
== END 2023-01-22 11:23 | disposition home or self-care (01) ==
LOC: HO.LAB 11:22
PROVIDERS: PCP Internal Medicine; Visit Provider Internal Medicine
DX: E10.65 Type 1 diabetes mellitus with hyperglycemia (principal)
CPT/HCPCS: 36415; 80053; 80061; 82043; 83036; 83721

== ENCOUNTER 2023-02-03 10:21 | Outpatient (REF) | payer MEDICARE, SELFPAY ==
--- NOTE | ~2023-02-03 | MM_ITS ---
EXAMINATION: BONE DENSITOMETRY CLINICAL INDICATION: Age-related osteoporosis without current pathological fracture. COMPARISON: Baseline BD dated 01/24/2021. TECHNIQUE: Using a [employer] DXA System (software version: 13.1) manufactured by [employer], dual-energy x-ray absorptiometry was performed of the lumbar spine and left hip. The images are of good technical quality. Summary results are attached. FINDINGS: AP SPINE L1-L2 (excluding L3 and L4): The data of L1-L4 has been changed to exclude the L3 and L4 vertebral bodies, because degenerative changes at these levels may cause overestimation of lumbar spine density. Current: BMD 1.299 g/cm2, Z-score 1.6, T-score 1.1, normal, 6.6% increase from baseline (<5% change is not significant). Baseline: BMD 1.219 g/cm2. LEFT FEMUR, NECK: Current: BMD 1.020 g/cm2, Z-score 0.4, T-score -0.1, normal. Baseline: BMD 1.075 g/cm2. LEFT FEMUR, TOTAL: Current: BMD 1.164 g/cm2, Z-score 1.5, T-score 1.2, normal, 0.0% no change from baseline (<5% change is not significant). Baseline: BMD 1.164 g/cm2. IDENTIFIED RISK FACTORS: Early menopause, secondary osteoporosis, history of fracture (adult), thiazide, hysterectomy. HISTORY OF FRACTURE: Femur, right. MEDICATIONS: Calcium supplements or multivitamin, vitamin D. MM/XR DEXA axial skeleton IMPRESSION: 1. DIAGNOSIS: Normal bone density based on the lowest T-score value of -0.1 in the femoral neck applying World Health Organization criteria. 2. 10-YEAR FRACTURE RISK PREDICTION, FRAX: According to the guidelines, FRAX calculation should only be performed on patients in the osteopenia bone density category. Therefore, FRAX was not performed on this patient. 3. Treatment Recommendations: NOF guidelines recommend consideration for treatment in postmenopausal women and men age 50 and older presenting with the following: -A hip or vertebral (clinical or morphometric) fracture. -T-score less than or equal to -2.5 at the femoral neck or spine after appropriate evaluation to exclude secondary causes. -Low bone mass at the hip or spine and a 10-year fracture probability by FRAX of greater than or equal to 3% for hip fracture or greater than or equal to 20% for major osteoporotic fracture based on the [place] adapted WHO algorithm. 4. Other Recommendations: All treatment decisions require clinical judgment and consideration of individual patient factors, including patient preferences, comorbidities, previous drug use, risk factors not captured in the FRAX model (e.g. frailty, falls, vitamin D deficiency, increased bone turnover, interval significant decline in bone density) and possible under or overestimation of fracture risk by FRAX. FUTURE SCAN RECOMMENDATION: People with diagnosed cases of osteoporosis or at high risk for fracture should have regular bone mineral density tests. For patients eligible for Medicare, routine testing is allowed once every 2 years. The testing frequency can be increased to one year for patients who have rapidly progressing disease, those who are receiving or discontinuing medical therapy to restore bone mass, or have additional risk factors.
--- NOTE | ~2023-02-03 | MM_ITS ---
EXAMINATION: MM SCREENING DIGITAL BREAST TOMOSYNTHESIS, BILATERAL CLINICAL INFORMATION: Screening. Asymptomatic. The lifetime risk of breast cancer based on the Tyrer-Cuzick Model is 1.1%. COMPARISON: Mammography: 01/30/2022 and studies dating back to 05/13/2012. TECHNIQUE: Digital breast tomosynthesis is performed in both the craniocaudal and mediolateral oblique views along with computer-aided detection (CAD). Synthesized 2D images are generated from the tomosynthesis. FINDINGS: The breasts are heterogeneously dense, which may obscure small masses (ACR BI-RADS breast composition Category c). On craniocaudal view of the right breast, approximately 9 cm from the nipple, there is a circumscribed 5 mm density seen about the deep lateral aspect for which spot compression view and possible ultrasound is recommended for further evaluation. On left breast mediolateral oblique projection there is a stable superior region of asymmetry. About the deep upper outer aspect there is a density with calcifications present lying approximately 8 cm from the nipple and measuring 10 x 6 mm in size. Spot magnification views of the left breast recommended. MM/MM tomosynthesis screening BI IMPRESSION: Bilateral breast findings for further evaluation. ASSESSMENT: BI-RADS 0: Incomplete - Need additional imaging evaluation. RECOMMENDATION: 1. Additional views of the bilateral breasts. 2. Targeted ultrasound if warranted after review of the additional views. 3. Radiology department staff will contact the patient for additional imaging. This patient's information was entered into a reminder system with a target due date for their next mammogram.
== END 2023-02-03 10:22 | disposition home or self-care (01) ==
LOC: HO.MAMMO 10:21
PROVIDERS: PCP Internal Medicine; Visit Provider Internal Medicine
DX: Z12.31 Encounter for screening mammogram for malignant neoplasm of breast (principal); M81.0 Age-related osteoporosis without current pathological fracture; Z78.0 Asymptomatic menopausal state
CPT/HCPCS: 77063; 77067; 77080

== ENCOUNTER 2023-02-24 13:28 | Outpatient (REF) | payer MEDICARE, SELFPAY ==
--- NOTE | ~2023-02-24 | MM_ITS ---
EXAMINATION: MM DIAGNOSTIC DIGITAL BREAST TOMOSYNTHESIS, BILATERAL CLINICAL INFORMATION: Recall from screening for small circumscribed nodule posterior central 6:00 right breast and fine calcifications posterior upper outer left breast, respectively. COMPARISON: Prior mammography exams including most recent 02/03/2023. TECHNIQUE: Digital breast tomosynthesis is performed. 2D images are generated from the tomosynthesis. The following views are obtained: Right spot CC x2, right ML; magnification left CC, magnification left ML x3. FINDINGS: There are scattered areas of fibroglandular density (ACR BI-RADS breast composition Category b). Breast tissue composition borders on heterogeneously dense. The circumscribed nodule under 5 mm posterior central 6:00 right breast is in retrospect similar to prior mammography dating back to 2019. There is no developing density or architectural abnormality. Additional magnification views left breast show scattered fine round calcifications in the area for recall, similar to prior magnification views 2018. Results are discussed with the patient at time of visit. MM/MM tomosynthesis added view BI IMPRESSION: Additional views show no significant changes bilateral breasts from prior studies. ASSESSMENT: BI-RADS 2: Benign RECOMMENDATION: Routine annual mammography screening. This patient's information was entered into a reminder system with a target due date for their next mammogram.
== END 2023-02-24 13:29 | disposition home or self-care (01) ==
LOC: HO.MAMMO 13:28
PROVIDERS: PCP Internal Medicine; Visit Provider Internal Medicine
DX: R92.8 Other abnormal and inconclusive findings on diagnostic imaging of breast (principal)
CPT/HCPCS: 77062; 77066

== ENCOUNTER → 2023-03-10 09:23 | Outpatient (BNVA) | payer MEDICARE, SELFPAY | PROVIDERS: PCP Internal Medicine; Visit Provider Dietitian, Registered | DX: E10.65 Type 1 diabetes mellitus with hyperglycemia (principal); E66.9 Obesity, unspecified; Z71.3 Dietary counseling and surveillance | CPT/HCPCS: 97803 ==

== ENCOUNTER 2023-04-21 13:32 | Outpatient (AMB) | payer MEDICARE, SELFPAY ==
--- NOTE | 2023-04-21 13:48 | MHC.AMDMED ---
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 Accompanied by: Self / Same As Patient Allergies Penicillins [PCN] Allergy (Unknown, Verified 10/16/22 13:44) THROAT SWELLING\ FISOHEX Allergy (Unknown, Uncoded 10/16/22 13:44) RASH Phisohex Allergy (Unknown, Uncoded 10/16/22 13:44) Unknown HPI Comprehensive Diabetes Asmnt General Diabetes type type 1 Most Recent Diabetes Results: Microalb/Creat Ratio 7.7 ug/mg cr 01/22/23 Cholesterol 165 mg/dL 01/22/23 HDL Cholesterol 49 mg/dL 01/22/23 Triglycerides 66 mg/dL 01/22/23 Creatinine 1.21 mg/dL (0.5-1.4) 01/22/23 Blood Urea Nitrogen 24 mg/dL (9-16) H 01/22/23 Sodium 138 mmol/L (135-145) 01/22/23 Potassium 4.3 mmol/L (3.3-5.1) 01/22/23 Chloride 104 mmol/L (96-108) 01/22/23 Carbon Dioxide 24 mmol/L (22-29) 01/22/23 Calcium 10.0 mg/dL (8.4-10.2) 01/22/23 AST 16 U/L (5-31) 01/22/23 ALT 15 U/L (0-31) 01/22/23 Total Protein 7.2 g/dL (6.5-8.0) 01/22/23 Albumin 4.0 g/dL (3.5-5.0) 01/22/23 [facility] Medical History Diabetic polyneuropathy associated with type 1 diabetes mellitus Diabetic retinopathy Dyslipidemia Heart murmur HLD (hyperlipidemia) Hypertension Non-toxic multinodular goiter Obesity (BMI 30-39.9) Transaminitis Vitamin D deficiency Surgical History H/O colonoscopy H/O laser iridotomy History of carpal tunnel release History of ear surgery Hx of hysterectomy Family History Father No problems noted. Mother Hypertension Social History Alcohol intake: current Alcohol intake frequency: holidays/special occasions only Patient Tobacco Use Status: Former Tobacco user Quit Date: 2003 Years Smoked: 30+/- years Assessment & Plan Assessment & Plan (1) Type 1 diabetes mellitus with hyperglycemia: Code(s): E10.65 - Type 1 diabetes mellitus with hyperglycemia Plan: Personal Continuous Glucose Monitor: Patient using Medtronic 670 G insulin pump, which we were unable to download at today's visit Patient also using Dexcom G6 sensor Patients CGM information reviewed Reviewed patient's sensor data: Hypoglycemia: ? 1% Hyperglycemia:? 46% Time in Range:? 53% Average glucose for the last 2 weeks?180 mg/dL Patient reports she would like to stop insulin pump therapy at this time. She does want to continue with Dexcom G6 sensors but do manual injections with insulin pens. Instructed patient that she will be taking basal insulin 42 units daily Downloaded bolus calc dasha for patient's phone, patient will continue to use insulin carb ratio and correction factor to bolus at mealtime Reviewed with patient how to use bolus calc dasha for mealtimes and correction Message sent to Dr. Silva to prescribe Tresiba insulin pen, Humalog insulin pen and pen needles Patient would also like to upgrade to Dexcom G7 CMN for [facility] filled out on left at providers door to sign Reviewed how to interpret trend arrows Reminded patient that to check finger sticks if symptoms do not match sensor reading. Discussed lag time between finger stick and sensor data.? Patient able to insert sensor independently at home without issue.? Patient Instructions: Patient will follow-up with clinical unit educator in 1 month Coding Level of Care Code Est Pt Level 1 (51537) Diagnoses Type 1 diabetes mellitus with hyperglycemia E10.65
== END 2023-04-21 14:08 | disposition home or self-care (01) ==
PROVIDERS: PCP Internal Medicine; Visit Provider Registered Nurse Diabetes Educator
DX: E10.65 Type 1 diabetes mellitus with hyperglycemia (principal)

== ENCOUNTER → 2023-04-21 13:32 | Outpatient (BNVA) | payer MEDICARE, SELFPAY | PROVIDERS: Visit Provider Registered Nurse Diabetes Educator | DX: E10.65 Type 1 diabetes mellitus with hyperglycemia (principal); Z96.41 Presence of insulin pump (external) (internal) | CPT/HCPCS: 99211 ==

== ENCOUNTER 2023-05-22 13:26 | Outpatient (AMB) | payer MEDICARE, SELFPAY ==
--- NOTE | 2023-05-22 14:07 | MHC.AMDMED ---
Intake Intake Visit Reasons: DM Investigative Research Specialist Required: No Accompanied by: Self / Same As Patient Allergies Penicillins [PCN] Allergy (Unknown, Verified 10/16/22 13:44) THROAT SWELLING\ FISOHEX Allergy (Unknown, Uncoded 10/16/22 13:44) RASH Phisohex Allergy (Unknown, Uncoded 10/16/22 13:44) Unknown HPI Comprehensive Diabetes Asmnt Most Recent Diabetes Results: Microalb/Creat Ratio 7.7 ug/mg cr 01/22/23 Cholesterol 165 mg/dL 01/22/23 HDL Cholesterol 49 mg/dL 01/22/23 Triglycerides 66 mg/dL 01/22/23 Creatinine 1.21 mg/dL (0.5-1.4) 01/22/23 Blood Urea Nitrogen 24 mg/dL (9-16) H 01/22/23 Sodium 138 mmol/L (135-145) 01/22/23 Potassium 4.3 mmol/L (3.3-5.1) 01/22/23 Chloride 104 mmol/L (96-108) 01/22/23 Carbon Dioxide 24 mmol/L (22-29) 01/22/23 Calcium 10.0 mg/dL (8.4-10.2) 01/22/23 AST 16 U/L (5-31) 01/22/23 ALT 15 U/L (0-31) 01/22/23 Total Protein 7.2 g/dL (6.5-8.0) 01/22/23 Albumin 4.0 g/dL (3.5-5.0) 01/22/23 [facility] Medical History Diabetic polyneuropathy associated with type 1 diabetes mellitus Diabetic retinopathy Dyslipidemia Heart murmur HLD (hyperlipidemia) Hypertension Non-toxic multinodular goiter Obesity (BMI 30-39.9) Transaminitis Vitamin D deficiency Surgical History H/O colonoscopy H/O laser iridotomy History of carpal tunnel release History of ear surgery Hx of hysterectomy Family History Father No problems noted. Mother Hypertension Social History Alcohol intake: current Alcohol intake frequency: holidays/special occasions only Patient Tobacco Use Status: Former Tobacco user Quit Date: 2003 Years Smoked: 30+/- years Assessment & Plan Assessment & Plan (1) Type 1 diabetes mellitus with hyperglycemia: Code(s): E10.65 - Type 1 diabetes mellitus with hyperglycemia Plan: Patient at visit to set up an insert Dexcom G7 Instructed patient sensors water proof you can shower, or swim do not submerge sensor in water for over 30 minutes Is sensor falls off cannot put back in you need to replace sensor, customer service number given to patient for sensor replacement Sensor placed on the back of right arm Patient left visit with sensor in warmup Reviewed how to interpret trend arrows Reminded patient that to check finger sticks if symptoms do not match sensor reading. Discussed lag time between finger stick and sensor data.? Instructed patient she should always keep blood glucometer for backup testing if needed Reviewed delay of CGM from fingersticks Reminded pt that if symptoms do not match sensor still needs to check fingersticks. Patient has also decided to discontinue insulin pump therapy with 670 G Medtronic She will be taking Tresiba 42 units daily Set up bolus calc dasha on patient's smart phone with insulin pump ratios Reviewed with patient how to use bolus calc dasha for mealtime and correction insulin Patient plans to take insulin pump off on 05/26/2023 At that time patient was instructed to start Tresiba 42 units Patient Instructions: Patient will follow-up with medical educator in 1 month Coding Level of Care Code Est Pt Level 1 (12441) Diagnoses Type 1 diabetes mellitus with hyperglycemia E10.65
== END 2023-05-22 14:13 | disposition home or self-care (01) ==
PROVIDERS: PCP Internal Medicine; Visit Provider Registered Nurse Diabetes Educator
DX: E10.65 Type 1 diabetes mellitus with hyperglycemia (principal)

== ENCOUNTER → 2023-05-22 13:26 | Outpatient (BNVA) | payer MEDICARE, SELFPAY | PROVIDERS: PCP Internal Medicine; Visit Provider Registered Nurse Diabetes Educator | DX: E10.65 Type 1 diabetes mellitus with hyperglycemia (principal) | CPT/HCPCS: 99211 ==

== ENCOUNTER 2023-06-19 10:21 | Outpatient (AMB) | payer MEDICARE, SELFPAY ==
--- NOTE | 2023-06-19 10:58 | MHC.AMDMED ---
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 Accompanied by: Self / Same As Patient Allergies Penicillins [PCN] Allergy (Unknown, Verified 10/16/22 13:44) THROAT SWELLING\ FISOHEX Allergy (Unknown, Uncoded 10/16/22 13:44) RASH Phisohex Allergy (Unknown, Uncoded 10/16/22 13:44) Unknown HPI Comprehensive Diabetes Asmnt Most Recent Diabetes Results: Microalb/Creat Ratio 7.7 ug/mg cr 01/22/23 Cholesterol 165 mg/dL 01/22/23 HDL Cholesterol 49 mg/dL 01/22/23 Triglycerides 66 mg/dL 01/22/23 Creatinine 1.21 mg/dL (0.5-1.4) 01/22/23 Blood Urea Nitrogen 24 mg/dL (9-16) H 01/22/23 Sodium 138 mmol/L (135-145) 01/22/23 Potassium 4.3 mmol/L (3.3-5.1) 01/22/23 Chloride 104 mmol/L (96-108) 01/22/23 Carbon Dioxide 24 mmol/L (22-29) 01/22/23 Calcium 10.0 mg/dL (8.4-10.2) 01/22/23 AST 16 U/L (5-31) 01/22/23 ALT 15 U/L (0-31) 01/22/23 Total Protein 7.2 g/dL (6.5-8.0) 01/22/23 Albumin 4.0 g/dL (3.5-5.0) 01/22/23 [facility] Medical History Diabetic polyneuropathy associated with type 1 diabetes mellitus Diabetic retinopathy Dyslipidemia Heart murmur HLD (hyperlipidemia) Hypertension Non-toxic multinodular goiter Obesity (BMI 30-39.9) Transaminitis Vitamin D deficiency Surgical History H/O colonoscopy H/O laser iridotomy History of carpal tunnel release History of ear surgery Hx of hysterectomy Family History Father No problems noted. Mother Hypertension Social History Alcohol intake: current Alcohol intake frequency: holidays/special occasions only Patient Tobacco Use Status: Former Tobacco user Quit Date: 2003 Years Smoked: 30+/- years Assessment & Plan Assessment & Plan (1) Type 1 diabetes mellitus with hyperglycemia: Code(s): E10.65 - Type 1 diabetes mellitus with hyperglycemia Plan: Personal Continuous Glucose Monitor: front desk supervisor on able to download patient's Dexcom 7 pit and auxiliaries supervisor at today's visit. Patient recently transitioned from Medtronic 670 G to MDI with Dexcom G7 Patient does report she is having hypoglycemia after meals Current insulin plan: Lantus 42 units daily Humalog 30 units before meals Patients CGM information reviewed Reviewed patient's sensor data: Hypoglycemia: ? 4% Hyperglycemia:? 30% Time in Range:? 66% Average glucose for the last 2 weeks?151 mg/dL Reviewed with patient how to use rule of 15s to treat hypoglycemia, hypoglycemia handout given Reviewed insulin action of both Lantus and Humalog Recommended to patient she decrease Humalog 30 units to Humalog 22 units before meals Patient has upcoming appointment with Dr. Martino on 07/09/2023. Patient is overdue for A1c, will have A1c drawn at that visit Patient reports having adhesion issues with Dexcom G7 sensor, instructed patient to use skin tac wipe for better adhesion Also discussed Dexcom G7 overly patches that can be purchased [id number] or online Patient given Dexcom G7 customer service number to report adhesion issues and ask for replacement sensors Reviewed how to interpret trend arrows Reminded patient that to check finger sticks if symptoms do not match sensor reading. Discussed lag time between finger stick and sensor data.? Patient able to insert sensor independently at home without issue.? Patient Instructions: Decrease Humalog before meals from 30 units to 22 units Follow-up with Diabetes Education nurse in 2 months Coding Level of Care Code Est Pt Level 1 (76998) Diagnoses Type 1 diabetes mellitus with hyperglycemia E10.65
== END 2023-06-19 11:09 | disposition home or self-care (01) ==
PROVIDERS: PCP Internal Medicine; Visit Provider Registered Nurse Diabetes Educator
DX: E10.65 Type 1 diabetes mellitus with hyperglycemia (principal)

== ENCOUNTER → 2023-06-19 10:21 | Outpatient (BNVA) | payer MEDICARE, SELFPAY | PROVIDERS: PCP Internal Medicine; Visit Provider Registered Nurse Diabetes Educator | DX: E10.65 Type 1 diabetes mellitus with hyperglycemia (principal) | CPT/HCPCS: 99211 ==

== ENCOUNTER 2023-07-09 14:21 | Outpatient (AMB) | payer MEDICARE, SELFPAY ==
[2023-07-09 14:24] VITALS: BP 152/58; PULSE 68; BMI 34.4
--- NOTE | 2023-07-09 14:24 | MHC.OFFVIS ---
Intake Vital Signs 07/09/23 14:24 Height 5 ft 2 in Weight 188 lb 0.869 oz BMI 34.4 BP 152/58 H Blood Pressure Location Lt brachial Position Sitting Pulse 68 Pulse Source Pulse Oximeter Intake Visit Reasons: F/U T1DM/pt. confirmed Intake Note: New patient to Dr. Martino present today for Type 1 Diabetes Mellitus. Previously followed by Dr. Silva. Patient receives DME supplies through: [facility] Last Diabetic Eye exam: 04/2022 Last Podiatry Visit: 03/2023 Random Glucose:94 mg/dl HgA1C: 7.8% Limnologist Required: No Accompanied by: Self / Same As Patient Allergies Penicillins [PCN] Allergy (Unknown, Verified 07/09/23 14:36) THROAT SWELLING\ FISOHEX Allergy (Unknown, Uncoded 10/16/22 13:44) RASH Phisohex Allergy (Unknown, Uncoded 10/16/22 13:44) Unknown Medication List - Last Reconciled 07/09/23 by Santi Martino MD amlodipine 10 mg PO DAILY 90 days aspirin (Adult Aspirin Regimen) 81 mg PO DAILY blood sugar diagnostic (Contour Next Test Strips) 2 times a day cholecalciferol (vitamin D3) (Vitamin D3) 25 mcg PO DAILY Humalog KwikPen Insulin (insulin lispro) 30 units (0.3 mL) subcut TID 30 days NS lisinopril-hydrochlorothiazide 20-12.5 mg 2 tabs PO DAILY 90 days multivitamin 1 tab PO DAILY pen needle, diabetic (BD Ultra-Fine Micro Pen Needle) 4x daily rosuvastatin 5 mg PO DAILY 90 days Tresiba FlexTouch U-100 (insulin degludec) 42 units (0.42 mL) subcut DAILY 30 days NS HPI HPI Comments History of Present Illness Details 73 YO F with PMHx T1DM who is seen in F/U. She was previously followed by Dr. Carson, and then Dr. Brown.. The patient last saw Dr. Silva 10/16/2022 Initially diagnosed with T1DM at the age of 39 when she was having frequent infections. She presented to the ED and blood sugar was 500. She was started on Humalog, and remains on this in her insulin pump. She is currently not using the Medtronic 670G pump. Settings as follows: Current regimen is Tresiba 42 units and Humalog 22 units before meals Dexcom download shows average glucose to be 165 with standard deviation 46 and G mi of 7.3%. 56% range with 42% hyperglycemia and 1% hypoglycemia.. Pattern shows elevation in point care at mid afternoon. M. Reports low sugars 2-3 X/day Treats lows with glucose tablets. Checks sugar after to ensure it is rising. Follows the rule of 15's. Positive Family history of T2DM in both Grandparents, her Sister and 2 children. Has eyes checked yearly, last eye exam April 2023 denies retinopathy. Denies neuropathy. Has nephropathy, on lisinopril 20 mg PO daily. UAC WNL 04/01/2022. Has HLD, on Rosuvastatin 5 mg PO daily. LDL 89 04/01/2022. Denies history of CAD. Has had diabetes education. Diet/Carb counting: Counts carbs with every meal. Weight: Stable. Denies prior episodes of DKA. Denies prior severe episodes of hypoglycemia requiring help or hospitalization. Thyroid US: 09/03/2021 Right Thyroid Lobe: 4.4 x 2.1 x 1.8 cm, volume 8.6 mL. Previously 4.2 x 1.7 x 1.3 cm, volume 4.7 mL. Parenchyma: The gland echotexture is homogeneous. Thyroid vascularity is normal. Left Thyroid Lobe: 3.5 x 1.8 x 1.4 cm, volume 4.5 mL. Previously 4.0 x 1.8 x 1.2 cm, volume 4.6 mL. Parenchyma: The gland echotexture is homogeneous. Thyroid vascularity is normal. Isthmus: 0.42 cm in maximum AP dimension. Previously 0.46 cm. Estimated total number of nodules greater than or equal to 1 cm: 0. Manager Of Merchandising nodules are described as follows: 1.? Location: Right upper. ?? ? Size: 0.7 x 0.51 x 0.68 cm, volume 0.13 mL. ?? ? Previously: 0.59 x 0.48 x 0.6 cm, volume 0.09 mL. ?? ? Nodule characteristics: ?? ? Composition: Cystic(0). ?? ? Echogenicity: None. ?? ? Shape: Wider than taller. ?? ? Margins: Smooth (0). ?? ? Echogenic Foci: None (0). ? ACR TI-RADS total points: 0? ACR TI-RADS category: 1 ? Significant change in size (>/= 20% in 2 dimensions and minimal increase of 2 mm or 50% or greater increase in volume): None ?? ? Change in features: None ?? ? Change in ACR TI-RADS risk category: None 2.? Location: Left upper. ?? ? Size: 0.69 x 0.58 x 0.85 cm, volume 0.18 mL. ?? ? Previously: 0.87 x 0.71 x 0.7 cm, volume 0.23 mL. ?? ? Nodule characteristics: ?? ? Composition: Mixed cystic and solid (1). ?? ? Echogenicity: Hypoechoic (2). ?? ? Shape: Not taller than wide (0). ?? ? Margins: Smooth (0). ?? ? Echogenic Foci: None (0).? ACR TI-RADS total points: 3 ?? ? ACR TI-RADS category: 1 ? Significant change in size (>/= 20% in 2 dimensions and minimal increase of 2 mm or 50% or greater increase in volume): None ?? ? Change in features: None ?? ? Change in ACR TI-RADS risk category: None There are multiple small cystic nodules seen in both thyroid lobes. NODES: No lymphadenopathy is seen in the tissue surrounding the thyroid gland. Labs: Laboratory Tests 04/01/22 04/01/22 04/01/22 10:33 10:37 10:37 Sodium 137 Potassium 4.5 Creatinine 1.33 Estimated GFR 39 Hemoglobin A1c % 8.6 LDL Cholesterol Di rect Microalb/Creat Rat io TNP 04/01/22 10:37 Sodium Potassium Creatinine Estimated GFR Hemoglobin A1c % LDL Cholesterol Di rect 89 Microalb/Creat Rat io PFSH Medical History Diabetic polyneuropathy associated with type 1 diabetes mellitus Diabetic retinopathy Dyslipidemia Heart murmur HLD (hyperlipidemia) Hypertension Non-toxic multinodular goiter Obesity (BMI 30-39.9) Transaminitis Vitamin D deficiency Surgical History H/O colonoscopy H/O laser iridotomy History of carpal tunnel release History of ear surgery Hx of hysterectomy Family History Father No problems noted. Mother Hypertension Social History Alcohol intake: current Alcohol intake frequency: holidays/special occasions only Patient Tobacco Use Status: Former Tobacco user Quit Date: 2003 Years Smoked: 30+/- years Physical Exam Vital Signs: Last Vital Signs Pulse 68 07/09/23 14:24 BP 152/58 H 07/09/23 14:24 BMI result Body Mass Index 34.4 Absence of Cushingoid features. Absence of acromegalic features. Neck exam reveals nl size thyroid about 15 gms. No thyroid nodules palpable. No carotid bruits present. Lungs CTA. Heart S1 S2, Reg R/R. No M/R/ G. Skin exam reveals absence of vitiligo or acanthosis nigricans. Abdominal exam reveals Soft NT/ND with NA BS. No organomegaly present. Extrem Other: Visual exam of foot performed. No ulcerations or open lesions. No onchomycosis, no callouses.Pulses 2 + distally. Sensation intact to monofilament exam. Vibratory sensation sensed 10 seconds in right, 10 seconds in left with 128 Hz tuning fork Results AMB Hemoglobin A1c AMB Hemoglobin A1c 7.8 % Last Edit by Светлана Condon on 07/09/23 14:47 Results Reviewed Results Reviewed: 07/09/23 14:38 Glucose, Whole Blood Routine Laboratory Last Values Glucose (Clinic) 94 mg/dL (60-115) 07/09/23 14:38 Hgb A1c (Clinic) 7.8 % (4.0-6.0) H 07/09/23 14:41 Assessment & Plan Assessment & Plan (1) Type 1 diabetes mellitus with hyperglycemia: Code(s): E10.65 - Type 1 diabetes mellitus with hyperglycemia Plan: This 73-year-old black female with history of type 2 diabetes being managed basal-bolus insulin with fair glycemic control and no known microvascular or macrovascular complications. GAD65 antibodies were negative and patient has a positive family history for type 2 diabetes make a likely she has type 2 diabetes Plan is to Decrease Humalog to 16 units before dinner to avoid late-night hypoglycemia. Is likely the patient has type 2 diabetes and may benefit from a GLP 1 agonist should has Jenae [place] or [place]. this may be discussed at a later date. Orders: Orders AMB Hemoglobin A1c Today E10.65 - Type 1 diabetes mellitus with hyperglycemia Coding Level of Care Code Est Pt Level 4 (68873) Diagnoses Type 1 diabetes mellitus with hyperglycemia E10.65
[2023-07-09 14:42] LABS: Glucose, Whole Blood 94 mg/dL (60-115)
== END 2023-07-09 15:31 | disposition home or self-care (01) ==
PROVIDERS: PCP Internal Medicine; Referring Provider Internal Medicine; Visit Provider Internal Medicine Endocrinology, Diabetes & Metabolism
DX: E10.65 Type 1 diabetes mellitus with hyperglycemia (principal)
CPT/HCPCS: 99214

== ENCOUNTER → 2023-07-09 14:21 | Outpatient (BNVA) | payer MEDICARE, SELFPAY | PROVIDERS: Visit Provider Internal Medicine Endocrinology, Diabetes & Metabolism | DX: E10.65 Type 1 diabetes mellitus with hyperglycemia (principal) | CPT/HCPCS: 82947; 83036; 99212 ==

== ENCOUNTER 2023-07-27 10:23 | Outpatient (AMB) | payer MEDICARE, SELFPAY ==
[2023-07-27 10:31] VITALS: BP 120/66; PULSE 66; BMI 33.9
--- NOTE | 2023-07-27 10:31 | MHC.OFFVIS ---
Intake Vital Signs 07/27/23 10:31 Height 5 ft 2 in Weight 185 lb 3.013 oz BMI 33.9 BP 120/66 Blood Pressure Location Lt brachial Position Sitting Pulse 66 Intake Visit Reasons: 1 yr fu Intake Note: 1 year follow-up with ekg feeling good Linen Folder Required: No Allergies Penicillins [PCN] Allergy (Unknown, Verified 07/09/23 14:36) THROAT SWELLING\ FISOHEX Allergy (Unknown, Uncoded 10/16/22 13:44) RASH Phisohex Allergy (Unknown, Uncoded 10/16/22 13:44) Unknown Medication List - Last Reconciled 07/27/23 by Wero Fields MD amlodipine 10 mg PO DAILY 90 days aspirin (Adult Aspirin Regimen) 81 mg PO DAILY blood sugar diagnostic (Contour Next Test Strips) 2 times a day cholecalciferol (vitamin D3) (Vitamin D3) 25 mcg PO DAILY Humalog KwikPen Insulin (insulin lispro) 30 units (0.3 mL) subcut TID 30 days NS lisinopril-hydrochlorothiazide 20-12.5 mg 2 tabs PO DAILY 90 days multivitamin 1 tab PO DAILY pen needle, diabetic (BD Ultra-Fine Micro Pen Needle) 4x daily rosuvastatin 5 mg PO DAILY 90 days Tresiba FlexTouch U-100 (insulin degludec) 42 units (0.42 mL) subcut DAILY 30 days NS HPI HPI Comments History of Present Illness Details Pleasant 73-year-old female here for follow-up She has history of diabetes for the last 32 years and has been on insulin. She has retinopathy and peripheral neuropathy. She was found to have a murmur during her examination with endocrinology and was referred to us. She is a retired pharmacy specialist. She is saying over the last year since senior living she has not been very active. She also had right leg surgery and gets pain in the right hip which limits her. With her daily activities she has no symptoms in particular no shortness of breath, chest discomfort, dizziness or syncope. Blood pressure control is good. No other concerns right now. echocardiography has shown [id number] aortic valve stenosis. By exam she had clear 2nd heart sound and aortic stenosis did not appear severe. 07/27/2023 07/27/2023: She returns for follow-up. She is denying any symptoms. In particular no chest pain or shortness of breath. No dizziness. Has [id number] aortic valve stenosis as of July 2022 echocardiography. Blood pressure control is good. [facility] Medical History Diabetic polyneuropathy associated with type 1 diabetes mellitus Diabetic retinopathy Dyslipidemia Heart murmur HLD (hyperlipidemia) Hypertension Non-toxic multinodular goiter Obesity (BMI 30-39.9) Transaminitis Vitamin D deficiency Surgical History H/O colonoscopy H/O laser iridotomy History of carpal tunnel release History of ear surgery Hx of hysterectomy Family History Father No problems noted. Mother Hypertension Social History Alcohol intake: current Alcohol intake frequency: holidays/special occasions only Patient Tobacco Use Status: Former Tobacco user Quit Date: 2003 Years Smoked: 30+/- years Review of Systems Const Denies chills, Denies fatigue, Denies fever(s), Denies frequent falls, Denies weakness, Denies weight gain and Denies weight loss ENT Denies dizziness Card Denies chest pain, Denies leg edema, Denies lightheadedness, Denies palpitations, Denies dyspnea, Denies dyspnea on exertion, Denies orthopnea and Denies other (loss of consciousness) Resp Denies cough, Denies dyspnea and Denies dyspnea on exertion GI Denies hematochezia and Denies change in stool character Musc Denies abnormal gait, Denies muscle weakness, Denies numbness, Denies radiating pain into limb and Denies tingling Neuro Denies abnormal gait, Denies dizziness, Denies frequent falls, Denies numbness, Denies tingling and Denies weakness Endo Denies fatigue and Denies palpitations Physical Exam Vital Signs: Last Vital Signs Pulse 66 07/27/23 10:31 BP 120/66 07/27/23 10:31 BMI result Body Mass Index 33.9 GENERAL APPEARANCE: in no acute distress, pleasant. NECK: no carotid bruit, no jugular venous distention. SKIN: no suspicious lesions, warm and dry. HEART: Ejection systolic murmur aortic area with preserved 2nd heart sound. LUNGS: clear to auscultation bilaterally. ABDOMEN: soft, nontender. EXTREMITIES: no edema. PERIPHERAL PULSES: equal. NEUROLOGIC: No gross deficits, AAO X 3 Office Procedures EKG Details: NSR 66/min, Normal axis, Nonspecific T wave changes, QTc 419 msec. [id number], Complete Assessment & Plan Assessment & Plan (1) Hypertension: Code(s): I10 - Essential (primary) hypertension (2) Aortic stenosis: Code(s): I35.0 - Nonrheumatic aortic (valve) stenosis Plan Pleasant 73-year-old female here for follow-up. She has yduf-cc-jewxbmaa aortic valve stenosis. She has hypertension. Blood pressure control is good currently. She will continue same medications. We will repeat echocardiography in a year and she will come back for follow-up after that. Thank you for allowing me to participate in the care of your patient. Please feel free to contact me if you have any questions. Orders: Orders CA echo transthoracic complete 11 Months I35.0 - Nonrheumatic aortic (valve) stenosis Coding Level of Care Code Est Pt Level 4 (26756) Diagnoses Hypertension I10 Aortic stenosis I35.0 CPT Codes EKG - CPT: 35380-[id number], Complete ([id number])
== END 2023-07-27 10:54 | disposition home or self-care (01) ==
PROVIDERS: PCP Internal Medicine; Visit Provider Internal Medicine Cardiovascular Disease
DX: I10 Essential (primary) hypertension (principal); I35.0 Nonrheumatic aortic (valve) stenosis
CPT/HCPCS: 93010; 99214

== ENCOUNTER → 2023-07-27 10:23 | Outpatient (BNVA) | payer MEDICARE, SELFPAY | PROVIDERS: PCP Internal Medicine; Visit Provider Internal Medicine Cardiovascular Disease | DX: I10 Essential (primary) hypertension (principal); I35.0 Nonrheumatic aortic (valve) stenosis | CPT/HCPCS: 93005; 99212 ==

== ENCOUNTER 2023-08-19 10:20 | Outpatient (AMB) | payer MEDICARE, SELFPAY ==
--- NOTE | 2023-08-19 10:41 | A.OFFVIS_ITS ---
Intake Intake Visit Reasons: DM Day Care Supervisor Required: No Accompanied by: Self / Same As Patient Allergies Penicillins [PCN] Allergy (Unknown, Verified 07/09/23 14:36) THROAT SWELLING\ FISOHEX Allergy (Unknown, Uncoded 10/16/22 13:44) RASH Phisohex Allergy (Unknown, Uncoded 10/16/22 13:44) Unknown HPI Comprehensive Diabetes Asmnt Most Recent Diabetes Results: No Data to Display PFSH Medical History Diabetic polyneuropathy associated with type 1 diabetes mellitus Diabetic retinopathy Dyslipidemia Heart murmur HLD (hyperlipidemia) Hypertension Non-toxic multinodular goiter Obesity (BMI 30-39.9) Transaminitis Vitamin D deficiency Surgical History H/O colonoscopy H/O laser iridotomy History of carpal tunnel release History of ear surgery Hx of hysterectomy Family History Father No problems noted. Mother Hypertension Social History Alcohol intake: current Alcohol intake frequency: holidays/special occasions only Patient Tobacco Use Status: Former Tobacco user Quit Date: 2003 Years Smoked: 30+/- years Assessment & Plan Assessment & Plan (1) Type 1 diabetes mellitus with hyperglycemia: Code(s): E10.65 - Type 1 diabetes mellitus with hyperglycemia Plan: Personal Continuous Glucose Monitor: Patients CGM information reviewed Reviewed patient's sensor data: Hypoglycemia: ? 0% Hyperglycemia:? 50% Time in Range:? 50% Average glucose for the last 2 weeks 187? mg/dL at last visit with Dr. Gunner Martino stated to patient that he think she has type 2 diabetes instead of type 1 diabetes. reviewed with patient the difference between type 1 diabetes and type 2 diabetes patient also stated she is not interested in starting GLP 1 at this time reviewed patient's Dexcom data patient's average glucose overnight remains above target or right at target post meal glucose is on not experiencing hypoglycemia, become close to being at hypoglycemic levels discussed with patient changing Tresiba 42 units to 48 units daily and reducing Humalog at breakfast and lunch from 30 units 25 units keep dinner dose of Humalog at 18 units instructed patient if she begins to experience overnight hypoglycemia to reduce Tresiba back to 42 units Patient able to insert sensor independently at home without issue.? Patient Instructions: Increase Tresiba from 42 units to 48 units Decrease Humalog dose before Breakfast and Lunch to 25 units keep the Dinner humalog 18 units follow up in 1 month Coding Level of Care Code Est Pt Level 1 (36901) Diagnoses Type 1 diabetes mellitus with hyperglycemia E10.65
== END 2023-08-19 10:56 | disposition home or self-care (01) ==
PROVIDERS: PCP Internal Medicine; Visit Provider Registered Nurse Diabetes Educator
DX: E10.65 Type 1 diabetes mellitus with hyperglycemia (principal)

== ENCOUNTER → 2023-08-19 10:20 | Outpatient (BNVA) | payer MEDICARE, SELFPAY | PROVIDERS: PCP Internal Medicine; Visit Provider Registered Nurse Diabetes Educator | DX: E10.65 Type 1 diabetes mellitus with hyperglycemia (principal) | CPT/HCPCS: 99211 ==

== ENCOUNTER 2023-08-24 11:19 | Outpatient (AMB) | payer MEDICARE, SELFPAY ==
[2023-08-24 11:28] VITALS: BMI 34.6
--- NOTE | 2023-08-24 11:28 | A.OFFVIS_ITS ---
Intake VS Expanded 08/24/23 11:28 Height 5 ft 2 in Weight 189 lb 2.506 oz BMI 34.6 Intake Visit Reasons: dm1 Allergies Penicillins [PCN] Allergy (Unknown, Verified 07/09/23 14:36) THROAT SWELLING\ FISOHEX Allergy (Unknown, Uncoded 10/16/22 13:44) RASH Phisohex Allergy (Unknown, Uncoded 10/16/22 13:44) Unknown HPI Nutrition Presentation Details Pt prestns for MNT, f/u for DM. Pt is no longer on insulin pump therapy. Pt reports taking Lantus 48 units/d and Humalog 20 for breakfast meals, 18 units with lunch and dinner. Pt is working with medication management with information clerk and DM educator . Pt reports appetite is good, Pt does not want to continue working on carbohydrate counting. Pt verbalizes understanding concept but wants to work on portion control following healthy plate method food frequency dairy : once/day (mostly cheese) pt reports taking vitamin D and multivitamin fluids: seltzer water : (36 oz/d), 4 cups of coffee (32 oz), trying to restart tea instead of coffee fish : 3 times /month fruits: 1-2/d vegetables: combination of starchy and non starchy veg fried foods 1-2 /month physical activity: sedentary ETOH/SMOKING : denies Most Recent Diabetes Results: No Data to Display [facility] Medical History Diabetic polyneuropathy associated with type 1 diabetes mellitus Diabetic retinopathy Dyslipidemia Heart murmur HLD (hyperlipidemia) Hypertension Non-toxic multinodular goiter Obesity (BMI 30-39.9) Transaminitis Vitamin D deficiency Surgical History H/O colonoscopy H/O laser iridotomy History of carpal tunnel release History of ear surgery Hx of hysterectomy Family History Father No problems noted. Mother Hypertension Social History Alcohol intake: current Alcohol intake frequency: holidays/special occasions only Patient Tobacco Use Status: Former Tobacco user Quit Date: 2003 Years Smoked: 30+/- years Assessment & Plan Assessment & Plan (1) Type 1 diabetes mellitus with hyperglycemia: Code(s): E10.65 - Type 1 diabetes mellitus with hyperglycemia Plan: Review healthy plate method concepts and low sodium options EsT Kcal NEEDS as per 25 /kg bw: 2100 - 250 : 1850 USED WT : 84 kg est protein needs as per 0.8-1.0 g/kg bw: 67- 84 g/d est fluid needs as per 25 ml/kg bw: 2100ml/d Na < 2000 mg/d Educate patient on: (R= Reviewed, V = verbalizes understanding N/R= Needs review N/A= not applicable) * Food sources of carbohydrates and serving adequate serving sizes : R V * Difference between complex carbohydrates and simple carbohydrates, role of fiber: R V * Differences between fats (MUFA/PUFA/saturated fats, trans fats) and food sources of various fats: R V * Food sources of sodium and salt and healthy modifications for heart health and kidney health: R V * Vitamins and minerals: R V * How to interpret food labels: R V * Healthy Plate method concept: R V * Physical activity: benefits and precaution: R V Patient Instructions: Reinforce choosing low sodium and low saturated fat food sources Be a ward of sauces, foods with batters, condiments high in salt/sodium (read food labels, choose low % sodium per serving size) Coding Level of Care Code Nutr Indiv Subseq (22924) Diagnoses Type 1 diabetes mellitus with hyperglycemia E10.65 Time Spent (min) 20
== END 2023-08-24 12:09 | disposition home or self-care (01) ==
PROVIDERS: PCP Internal Medicine; Visit Provider Dietitian, Registered
DX: E10.65 Type 1 diabetes mellitus with hyperglycemia (principal)

== ENCOUNTER → 2023-08-24 11:19 | Outpatient (BNVA) | payer MEDICARE, SELFPAY | PROVIDERS: Visit Provider Dietitian, Registered | DX: E10.65 Type 1 diabetes mellitus with hyperglycemia (principal) | CPT/HCPCS: 97803 ==

== ENCOUNTER 2023-09-17 10:14 | Outpatient (AMB) | payer MEDICARE, SELFPAY ==
--- NOTE | 2023-09-17 10:49 | A.OFFVIS_ITS ---
Intake Intake Visit Reasons: 30 min Electrician Assistant Required: No Accompanied by: Self / Same As Patient Allergies Penicillins [PCN] Allergy (Unknown, Verified 07/09/23 14:36) THROAT SWELLING\ FISOHEX Allergy (Unknown, Uncoded 10/16/22 13:44) RASH Phisohex Allergy (Unknown, Uncoded 10/16/22 13:44) Unknown HPI Comprehensive Diabetes Asmnt Most Recent Diabetes Results: No Data to Display PFSH Medical History Diabetic polyneuropathy associated with type 1 diabetes mellitus Diabetic retinopathy Dyslipidemia Heart murmur HLD (hyperlipidemia) Hypertension Non-toxic multinodular goiter Obesity (BMI 30-39.9) Transaminitis Vitamin D deficiency Surgical History H/O colonoscopy H/O laser iridotomy History of carpal tunnel release History of ear surgery Hx of hysterectomy Family History Father No problems noted. Mother Hypertension Social History Alcohol intake: current Alcohol intake frequency: holidays/special occasions only Patient Tobacco Use Status: Former Tobacco user Quit Date: 2003 Years Smoked: 30+/- years Assessment & Plan Assessment & Plan (1) Type 1 diabetes mellitus with hyperglycemia: Code(s): E10.65 - Type 1 diabetes mellitus with hyperglycemia Plan: Personal Continuous Glucose Monitor: Patients CGM information reviewed Reviewed patient's sensor data: Hypoglycemia: ? 1% Hyperglycemia:? 38% Time in Range:? 61% Average glucose for the last 2 weeks? 167 mg/dL patient has been experiencing some post meal hypoglycemic event reviewed with patient how to treat hypoglycemia with rule of 15s patient is currently taking 40 units Lantus daily patient is taking NovoLog 25 units for breakfast and lunch 18 units for supper recommended to patient to reduce breakfast and lunch NovoLog to 22, and supper NovoLog to 16 units if hypoglycemia persists contact religious educator Reviewed how to interpret trend arrows Reminded patient that to check finger sticks if symptoms do not match sensor reading. Discussed lag time between finger stick and sensor data.? Patient able to insert sensor independently at home without issue.? Patient Instructions: Reduce Humalog at meals Breakfast and lunch will be 22 units, Supper 16 units Follow up with Nurse Educator in 3 months Coding Level of Care Code Est Pt Level 1 (36811) Diagnoses Type 1 diabetes mellitus with hyperglycemia E10.65
== END 2023-09-17 10:57 | disposition home or self-care (01) ==
PROVIDERS: PCP Internal Medicine; Visit Provider Registered Nurse Diabetes Educator
DX: E10.65 Type 1 diabetes mellitus with hyperglycemia (principal)

== ENCOUNTER → 2023-09-17 10:14 | Outpatient (BNVA) | payer MEDICARE, SELFPAY | PROVIDERS: PCP Internal Medicine; Visit Provider Registered Nurse Diabetes Educator | DX: E10.65 Type 1 diabetes mellitus with hyperglycemia (principal) | CPT/HCPCS: 99211 ==

== ENCOUNTER 2023-10-29 12:00 | Outpatient (REF) | payer MEDICARE, SELFPAY ==
--- NOTE | ~2023-10-29 | XR_ITS ---
EXAMINATION: XR SHOULDER, BILATERAL CLINICAL INFORMATION: Pain. COMPARISON: No similar priors. TECHNIQUE: 2 views of each shoulder. FINDINGS: Right shoulder: No acute fracture or subluxation. Calcific/ossific fragment adjacent to the superior surface of the humeral head. Mild degenerative osteoarthritis of the acromioclavicular joint. Visualized right-sided ribs and right lung are within normal limits. Left shoulder: No acute fracture or subluxation. Small calcific/ossific fragment adjacent to the inferior aspect of the humeral head. Mild degenerative osteoarthritis of the acromioclavicular joint. Visualized left-sided ribs and left lung are within normal limits. XR/XR shoulder LT min 2V IMPRESSION: 1. No acute fracture or subluxation. 2. Bilateral calcific/ossific densities might be related with tendinosis and/or sequela of degenerative changes. 3. 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
--- NOTE | ~2023-10-29 | XR_ITS ---
EXAMINATION: XR SHOULDER, BILATERAL CLINICAL INFORMATION: Pain. COMPARISON: No similar priors. TECHNIQUE: 2 views of each shoulder. FINDINGS: Right shoulder: No acute fracture or subluxation. Calcific/ossific fragment adjacent to the superior surface of the humeral head. Mild degenerative osteoarthritis of the acromioclavicular joint. Visualized right-sided ribs and right lung are within normal limits. Left shoulder: No acute fracture or subluxation. Small calcific/ossific fragment adjacent to the inferior aspect of the humeral head. Mild degenerative osteoarthritis of the acromioclavicular joint. Visualized left-sided ribs and left lung are within normal limits. XR/XR shoulder RT min 2V IMPRESSION: 1. No acute fracture or subluxation. 2. Bilateral calcific/ossific densities might be related with tendinosis and/or sequela of degenerative changes. 3. 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
== END 2023-10-29 12:01 | disposition home or self-care (01) ==
LOC: HO.HOSX 12:00
PROVIDERS: Visit Provider Orthopaedic Surgery
DX: M25.511 Pain in right shoulder (principal); M25.512 Pain in left shoulder
CPT/HCPCS: 73030; 99202

== ENCOUNTER 2023-10-29 13:28 | Outpatient (AMB) | payer MEDICARE, SELFPAY ==
[2023-10-29 13:35] VITALS: BMI 34.6
--- NOTE | 2023-10-29 13:35 | A.OFFVIS_ITS ---
Intake Vital Signs 10/29/23 13:35 Height 5 ft 2 in Weight 189 lb 2 oz BMI 34.6 Intake Visit Reasons: Newprob-B/L shoulder pain-Left shoulder worse Intake Note: Manda is a 73 year old Right handed female who presents with bilateral shoulder pain, left side is worse then the Right. Patient reports the pain has been going on for the last three years. The patient states that she aggravated her left shoulder approximately 1 year ago while lifting a heavy object. Since that time she has had weakness lifting her left hand above shoulder height. She has taken Tylenol and anti-inflammatory medicines which gave her minimal relief. She has also done physical therapy which aggravated her pain. Allergies Penicillins [PCN] Allergy (Unknown, Verified 10/29/23 13:38) THROAT SWELLING\ FISOHEX Allergy (Unknown, Uncoded 10/16/22 13:44) RASH Phisohex Allergy (Unknown, Uncoded 10/16/22 13:44) Unknown Medication List - Last Reconciled 10/29/23 by Flakito Dowd MD amlodipine 10 mg PO DAILY 90 days aspirin (Adult Aspirin Regimen) 81 mg PO DAILY blood sugar diagnostic (Contour Next Test Strips) 2 times a day cholecalciferol (vitamin D3) (Vitamin D3) 25 mcg PO DAILY Humalog KwikPen Insulin (insulin lispro) 30 units (0.3 mL) subcut TID NS lisinopril-hydrochlorothiazide 20-12.5 mg 2 tabs PO DAILY 90 days multivitamin 1 tab PO DAILY pen needle, diabetic (BD Ultra-Fine Micro Pen Needle) 4x daily rosuvastatin 5 mg PO DAILY 90 days Tresiba FlexTouch U-100 (insulin degludec) 42 units (0.42 mL) subcut DAILY 30 days NS [facility] Medical History Transaminitis Heart murmur Vitamin D deficiency HLD (hyperlipidemia) Diabetic retinopathy Non-toxic multinodular goiter Dyslipidemia Hypertension Obesity (BMI 30-39.9) Diabetic polyneuropathy associated with type 1 diabetes mellitus Surgical History H/O colonoscopy H/O laser iridotomy History of carpal tunnel release History of ear surgery Hx of hysterectomy Family History Father No problems noted. Mother Hypertension Social History Alcohol intake: current Alcohol intake frequency: holidays/special occasions only Patient Tobacco Use Status: Former Tobacco user Quit Date: 2003 Years Smoked: 30+/- years Physical Exam Vital Signs: BMI result Body Mass Index 34.6 Const Other: Well-nourished well-developed very friendly female awake alert and oriented x3 in no acute distress Extrem Other: Bilateral upper extremity examination shows good capillary refill, no skin lesions noted, normal sensation light touch Left shoulder examination shows decreased range of motion when compared to her right shoulder, pain with range of motion, 4/5 strength with supraspinatus testing, positive impingement signs, tenderness over her acromioclavicular joint, no instability Results Reviewed Results Reviewed: X-rays of the patient's left shoulder show severe acromioclavicular joint narrowing, a type 3 acromion, no acute bony abnormalities Assessment & Plan Assessment & Plan (1) Left shoulder pain: Code(s): M25.512 - Pain in left shoulder Plan Ms. Schwarz presents with progressively worsening left shoulder pain and weakness due to impingement syndrome, acromioclavicular joint arthritis and possible full-thickness rotator cuff tearing. Thus, I will send the patient for an MRI of her left shoulder for further evaluation of her rotator cuff tendons. If she does have a full-thickness tear I will recommend surgical repair to optimize her future functional level. I will see the patient back once the MRI is completed. Feel free to call me at any time should questions regarding her orthopedic management arise. Thank you very much for asking me to see this very friendly patient. I spent 22 minutes in reviewing the patient's records and imaging studies, seeing the patient and documenting in the medical record. Orders: Orders XR shoulder RT min 2V 10/29/23 M25.511 - Pain in right shoulder XR shoulder LT min 2V 10/29/23 M25.512 - Pain in left shoulder MR shoulder LT wo con 10/29/23 M75.122 - Complete rotator cuff tear or rupture of left shoulder, not specified as traumatic Coding Level of Care Code New Pt Level 2 (30161) Diagnoses Left shoulder pain M25.512
== END 2023-10-29 13:59 | disposition home or self-care (01) ==
PROVIDERS: PCP Internal Medicine; Visit Provider Orthopaedic Surgery
DX: M25.512 Pain in left shoulder (principal)
CPT/HCPCS: 99202

== ENCOUNTER 2023-11-11 14:45 | Outpatient (AMB) | payer MEDICARE, SELFPAY ==
[2023-11-11 14:45] VITALS: BP 120/72; PULSE 62; BMI 34.9
--- NOTE | 2023-11-11 14:45 | A.OFFVIS_ITS ---
Intake Vital Signs 11/11/23 14:45 Height 5 ft 2 in Weight 190 lb 11.198 oz BMI 34.9 BP 120/72 Blood Pressure Location Rt brachial Position Sitting Pulse 62 Pulse Source Pulse Oximeter Intake Visit Reasons: T1DM Intake Note: Patient presents today to follow up on D1MT. Last Diabetic Eye exam: December 2022 Last Podiatry Visit: 08/17/23 Random Glucose: 80 mg/dl HgA1C: 7.7% Anesthesia Assistant Required: No Accompanied by: Self / Same As Patient Allergies Penicillins [PCN] Allergy (Unknown, Verified 11/11/23 14:52) THROAT SWELLING\ FISOHEX Allergy (Unknown, Uncoded 10/16/22 13:44) RASH Phisohex Allergy (Unknown, Uncoded 10/16/22 13:44) Unknown HPI HPI Comments History of Present Illness Details 73 YO F with PMHx T1DM who is seen in F/U. She was previously followed by Dr. Carson, and then Dr. Brown.. Initially diagnosed with T1DM at the age of 39 when she was having frequent infections. She presented to the ED and blood sugar was 500. She was started on Humalog, and remains on this in her insulin pump. She is currently not using the Medtronic [id number] pump. Settings as follows: Current regimen is Tresiba 42 units and Humalog 22 units before breakfast and daphne nch and 16 units before dinner Dexcom download shows average glucose to be 167 with standard deviation 58 and G mi of 7.3%. 53% range with 45% hyperglycemia and 1% hypoglycemia.. Pattern shows elevation in point care at mid afternoon. M. Reports low sugars 2-3 X/day Treats lows with glucose tablets. Checks sugar after to ensure it is rising. Follows the rule of 15's. Positive Family history of T2DM in both Grandparents, her Sister and 2 children. Has eyes checked yearly, last eye exam April 2023 denies retinopathy.Has appt 05/2023 Denies neuropathy. Has nephropathy, on lisinopril 20 mg PO daily. UAC WNL 04/01/2022. Has HLD, on Rosuvastatin 5 mg PO daily. LDL 89 04/01/2022. Denies history of CAD. Has had diabetes education. Diet/Carb counting: Counts carbs with every meal. Weight: Stable. Denies prior episodes of DKA. Denies prior severe episodes of hypoglycemia requiring help or hospitalization. Thyroid US: 09/03/2021 Right Thyroid Lobe: 4.4 x 2.1 x 1.8 cm, volume 8.6 mL. Previously 4.2 x 1.7 x 1.3 cm, volume 4.7 mL. Parenchyma: The gland echotexture is homogeneous. Thyroid vascularity is normal. Left Thyroid Lobe: 3.5 x 1.8 x 1.4 cm, volume 4.5 mL. Previously 4.0 x 1.8 x 1.2 cm, volume 4.6 mL. Parenchyma: The gland echotexture is homogeneous. Thyroid vascularity is normal. Isthmus: 0.42 cm in maximum AP dimension. Previously 0.46 cm. Estimated total number of nodules greater than or equal to 1 cm: 0. Cafeteria Table Attendant nodules are described as follows: 1.? Location: Right upper. ?? ? Size: 0.7 x 0.51 x 0.68 cm, volume 0.13 mL. ?? ? Previously: 0.59 x 0.48 x 0.6 cm, volume 0.09 mL. ?? ? Nodule characteristics: ?? ? Composition: Cystic(0). ?? ? Echogenicity: None. ?? ? Shape: Wider than taller. ?? ? Margins: Smooth (0). ?? ? Echogenic Foci: None (0). ? ACR TI-RADS total points: 0? ACR TI-RADS category: 1 ? Significant change in size (>/= 20% in 2 dimensions and minimal increase of 2 mm or 50% or greater increase in volume): None ?? ? Change in features: None ?? ? Change in ACR TI-RADS risk category: None 2.? Location: Left upper. ?? ? Size: 0.69 x 0.58 x 0.85 cm, volume 0.18 mL. ?? ? Previously: 0.87 x 0.71 x 0.7 cm, volume 0.23 mL. ?? ? Nodule characteristics: ?? ? Composition: Mixed cystic and solid (1). ?? ? Echogenicity: Hypoechoic (2). ?? ? Shape: Not taller than wide (0). ?? ? Margins: Smooth (0). ?? ? Echogenic Foci: None (0).? ACR TI-RADS total points: 3 ?? ? ACR TI-RADS category: 1 ? Significant change in size (>/= 20% in 2 dimensions and minimal increase of 2 mm or 50% or greater increase in volume): None ?? ? Change in features: None ?? ? Change in ACR TI-RADS risk category: None There are multiple small cystic nodules seen in both thyroid lobes. NODES: No lymphadenopathy is seen in the tissue surrounding the thyroid gland. Labs: Laboratory Tests 04/01/22 04/01/22 04/01/22 10:33 10:37 10:37 Sodium 137 Potassium 4.5 Creatinine 1.33 Estimated GFR 39 Hemoglobin A1c % 8.6 LDL Cholesterol Di rect Microalb/Creat Rat io TNP 04/01/22 10:37 Sodium Potassium Creatinine Estimated GFR Hemoglobin A1c % LDL Cholesterol Di rect 89 Microalb/Creat Rat io [facility] Medical History (Updated 11/11/23 @ 15:05 by Santi Martino MD) Uncontrolled type 2 diabetes mellitus with hyperglycemia, with long-term current use of insulin Transaminitis Heart murmur Vitamin D deficiency HLD (hyperlipidemia) Diabetic retinopathy Non-toxic multinodular goiter Dyslipidemia Hypertension Obesity (BMI 30-39.9) Diabetic polyneuropathy associated with type 1 diabetes mellitus Surgical History H/O colonoscopy H/O laser iridotomy History of carpal tunnel release History of ear surgery Hx of hysterectomy Family History Father No problems noted. Mother Hypertension Social History Alcohol intake: current Alcohol intake frequency: holidays/special occasions only Patient Tobacco Use Status: Former Tobacco user Quit Date: 2003 Years Smoked: 30+/- years Physical Exam Vital Signs: Last Vital Signs Pulse 62 11/11/23 14:45 BP 120/72 11/11/23 14:45 BMI result Body Mass Index 34.9 Absence of Cushingoid features. Absence of acromegalic features. Neck exam reveals nl size thyroid about 15 gms. No thyroid nodules palpable. No carotid bruits present. Lungs CTA. Heart S1 S2, Reg R/R. No M/R/ G. Skin exam reveals absence of vitiligo or acanthosis nigricans. Abdominal exam reveals Soft NT/ND with NA BS. No organomegaly present. Extrem Other: Visual exam of foot performed. No ulcerations or open lesions. No onchomycosis, no callouses.Pulses 2 + distally. Sensation intact to monofilament exam. 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 GAD65 antibodies were negative and patient has a po sitive family history for type 2 diabetes make a likely she has type 2 diabetes Plan is to current therapy Coding Level of Care Code Est Pt Level 4 (57060) Diagnoses Type 1 diabetes mellitus with hyperglycemia E10.65 Uncontrolled type 2 diabetes mellitus with hyperglycemia, with long-term current use of insulin E11.65; Z79.4
[2023-11-11 14:58] LABS: Glucose, Whole Blood 80 mg/dL (60-115)
== END 2023-11-11 15:27 | disposition home or self-care (01) ==
PROVIDERS: PCP Internal Medicine; Visit Provider Internal Medicine Endocrinology, Diabetes & Metabolism
DX: E10.65 Type 1 diabetes mellitus with hyperglycemia (principal); Z79.4 Long term (current) use of insulin
CPT/HCPCS: 99214

== ENCOUNTER → 2023-11-11 14:45 | Outpatient (BNVA) | payer MEDICARE, SELFPAY | PROVIDERS: PCP Internal Medicine; Visit Provider Internal Medicine Endocrinology, Diabetes & Metabolism | DX: E11.65 Type 2 diabetes mellitus with hyperglycemia (principal); Z79.4 Long term (current) use of insulin | CPT/HCPCS: 82947; 83036; 99212 ==

== ENCOUNTER 2023-12-17 10:31 | Outpatient (AMB) | payer MEDICARE, SELFPAY ==
--- NOTE | 2023-12-17 10:36 | MHC.AMDMED ---
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 Accompanied by: Self / Same As Patient Allergies Penicillins [PCN] Allergy (Unknown, Verified 11/11/23 14:52) THROAT SWELLING\ FISOHEX Allergy (Unknown, Uncoded 10/16/22 13:44) RASH Phisohex Allergy (Unknown, Uncoded 10/16/22 13:44) Unknown HPI Comprehensive Diabetes Asmnt Most Recent Diabetes Results: Hemoglobin A1c 8.9 % 02/23/20 Microalb/Creat Ratio 7.7 ug/mg cr 01/22/23 Cholesterol 165 mg/dL 01/22/23 HDL Cholesterol 49 mg/dL 01/22/23 Triglycerides 66 mg/dL 01/22/23 Creatinine 1.21 mg/dL (0.5-1.4) 01/22/23 Blood Urea Nitrogen 24 mg/dL (9-16) H 01/22/23 Sodium 138 mmol/L (135-145) 01/22/23 Potassium 4.3 mmol/L (3.3-5.1) 01/22/23 Chloride 104 mmol/L (96-108) 01/22/23 Carbon Dioxide 24 mmol/L (22-29) 01/22/23 Calcium 10.0 mg/dL (8.4-10.2) 01/22/23 AST 16 U/L (5-31) 01/22/23 ALT 15 U/L (0-31) 01/22/23 Total Protein 7.2 g/dL (6.5-8.0) 01/22/23 Albumin 4.0 g/dL (3.5-5.0) 01/22/23 [facility] Medical History (Updated 11/11/23 @ 15:05 by Santi Martino MD) Uncontrolled type 2 diabetes mellitus with hyperglycemia, with long-term current use of insulin Transaminitis Heart murmur Vitamin D deficiency HLD (hyperlipidemia) Diabetic retinopathy Non-toxic multinodular goiter Dyslipidemia Hypertension Obesity (BMI 30-39.9) Diabetic polyneuropathy associated with type 1 diabetes mellitus Surgical History H/O colonoscopy H/O laser iridotomy History of carpal tunnel release History of ear surgery Hx of hysterectomy Family History Father No problems noted. Mother Hypertension Social History Alcohol intake: current Alcohol intake frequency: holidays/special occasions only Patient Tobacco Use Status: Former Tobacco user Quit Date: 2003 Years Smoked: 30+/- years Assessment & Plan Assessment & Plan (1) Uncontrolled type 2 diabetes mellitus with hyperglycemia, with long-term current use of insulin: Code(s): E11.65 - Type 2 diabetes mellitus with hyperglycemia; Z79.4 - senior care (current) use of insulin Plan: Personal Continuous Glucose Monitor: Patients CGM information reviewed Reviewed patient's sensor data: Hypoglycemia: ? 2% Hyperglycemia:? 49% Time in Range:? 49% Average glucose for the last 2 weeks? 172 mg/dL Patient has overnight pattern of hyperglycemia, with some postprandial hypoglycemia after breakfast Recommended to patient she increase Tresiba from 48 units to 52 units daily And reduce breakfast dose of Humalog from 22 units to 20 units, keep lunch and dinner dose of Humalog the same Reviewed how to interpret trend arrows Reminded patient that to check finger sticks if symptoms do not match sensor reading. Discussed lag time between finger stick and sensor data.? Patient able to insert sensor independently at home without issue.? Patient Instructions: Increase Tresiba from 48 to 52 units daily Humalog at breakfast change from 22 units to 20 units, Leave lunch at 22 units and dinner at 16 units Follow up with Kelley in 1 month Coding Level of Care Code Est Pt Level 1 (05853) Diagnoses Uncontrolled type 2 diabetes mellitus with hyperglycemia, with long-term current use of insulin E11.65; Z79.4
== END 2023-12-17 10:57 | disposition home or self-care (01) ==
PROVIDERS: PCP Internal Medicine; Visit Provider Registered Nurse Diabetes Educator
DX: E11.65 Type 2 diabetes mellitus with hyperglycemia (principal); Z79.4 Long term (current) use of insulin

== ENCOUNTER → 2023-12-17 10:31 | Outpatient (BNVA) | payer MEDICARE, SELFPAY | PROVIDERS: PCP Internal Medicine; Visit Provider Registered Nurse Diabetes Educator | DX: E11.65 Type 2 diabetes mellitus with hyperglycemia (principal); Z79.4 Long term (current) use of insulin | CPT/HCPCS: 99211 ==

== ENCOUNTER 2024-01-26 12:26 | Outpatient (AMB) | payer MEDICARE, SELFPAY ==
--- NOTE | 2024-01-26 12:53 | A.OFFVIS_ITS ---
Intake Intake Visit Reasons: T1DM Backend Developer Required: No Accompanied by: Self / Same As Patient Allergies Penicillins [PCN] Allergy (Unknown, Verified 11/11/23 14:52) THROAT SWELLING\ FISOHEX Allergy (Unknown, Uncoded 10/16/22 13:44) RASH Phisohex Allergy (Unknown, Uncoded 10/16/22 13:44) Unknown HPI Comprehensive Diabetes Asmnt Most Recent Diabetes Results: Hemoglobin A1c 8.9 % 02/23/20 Microalb/Creat Ratio 7.7 ug/mg cr 01/22/23 Cholesterol 165 mg/dL 01/22/23 HDL Cholesterol 49 mg/dL 01/22/23 Triglycerides 66 mg/dL 01/22/23 Creatinine 1.21 mg/dL (0.5-1.4) 01/22/23 Blood Urea Nitrogen 24 mg/dL (9-16) H 01/22/23 Sodium 138 mmol/L (135-145) 01/22/23 Potassium 4.3 mmol/L (3.3-5.1) 01/22/23 Chloride 104 mmol/L (96-108) 01/22/23 Carbon Dioxide 24 mmol/L (22-29) 01/22/23 Calcium 10.0 mg/dL (8.4-10.2) 01/22/23 AST 16 U/L (5-31) 01/22/23 ALT 15 U/L (0-31) 01/22/23 Total Protein 7.2 g/dL (6.5-8.0) 01/22/23 Albumin 4.0 g/dL (3.5-5.0) 01/22/23 [facility] Medical History (Updated 11/11/23 @ 15:05 by Santi Martino MD) Uncontrolled type 2 diabetes mellitus with hyperglycemia, with long-term current use of insulin Transaminitis Heart murmur Vitamin D deficiency HLD (hyperlipidemia) Diabetic retinopathy Non-toxic multinodular goiter Dyslipidemia Hypertension Obesity (BMI 30-39.9) Diabetic polyneuropathy associated with type 1 diabetes mellitus Surgical History H/O colonoscopy H/O laser iridotomy History of carpal tunnel release History of ear surgery Hx of hysterectomy Family History Father No problems noted. Mother Hypertension Social History Alcohol intake: current Alcohol intake frequency: holidays/special occasions only Patient Tobacco Use Status: Former Tobacco user Quit Date: 2003 Years Smoked: 30+/- years Assessment & Plan Assessment & Plan (1) Diabetic polyneuropathy associated with type 1 diabetes mellitus: Code(s): E10.42 - Type 1 diabetes mellitus with diabetic polyneuropathy Plan: Personal Continuous Glucose Monitor: Patients CGM information reviewed Reviewed patient's sensor data: Hypoglycemia: ? 1% Hyperglycemia:? 43% Time in Range:? 56% Average glucose for the last 2 weeks?170 mg/dL Morning postprandial hypoglycemia has resolved since reducing Humalog dose to 20 units Patient is still experiencing slight pattern of hyperglycemia between 7-9 p.m., recommended to patient to increase Humalog 16 units to 18 units Instructed patient if he experiences increase in evening hypoglycemic events after supper, to go back to Humalog 16 units Reviewed how to treat hypoglycemia with rule of 15s Patient is also interested in weight loss, patient has an upcoming visit with registered dietitian in February 2024. Encourage patient to discuss weight loss with at dietitian visit. Reviewed how to interpret trend arrows Reminded patient that to check finger sticks if symptoms do not match sensor reading. Discussed lag time between finger stick and sensor data.? Patient able to insert sensor independently at home without issue.? Patient Instructions: Increase Humalog 15 minutes prior to supper from 16 units to 18 units Treat any hypoglycemia with rule of 15s Follow-up with Diabetes Education nurse in 4 months Coding Level of Care Code Est Pt Level 1 (36520) Diagnoses Diabetic polyneuropathy associated with type 1 diabetes mellitus E10.42
== END 2024-01-26 12:58 | disposition home or self-care (01) ==
PROVIDERS: PCP Internal Medicine; Visit Provider Registered Nurse Diabetes Educator
DX: E10.42 Type 1 diabetes mellitus with diabetic polyneuropathy (principal)

== ENCOUNTER → 2024-01-26 12:26 | Outpatient (BNVA) | payer MEDICARE, SELFPAY | PROVIDERS: PCP Internal Medicine; Visit Provider Registered Nurse Diabetes Educator | DX: E10.42 Type 1 diabetes mellitus with diabetic polyneuropathy (principal); Z79.4 Long term (current) use of insulin | CPT/HCPCS: 99211 ==

== ENCOUNTER 2024-02-08 09:41 | Outpatient (REF) | payer MEDICARE, SELFPAY ==
[2024-02-08 10:10] LABS: MANUAL DIFF FLAG NO
[2024-02-08 10:44] LABS: Basophils Absolute Auto 0.1 X10*3/uL (0.0-0.2); Basophils Percent Auto 1.1 % (0-2); Eosinophils Absolute Auto 0.2 X10*3/uL (0.0-0.4); Eosinophils Percent Auto 2.2 % (0-4); Hematocrit 34.1 % (37.0-47.0); Imm Gran Abs Auto 0.04 X10*3/uL (0.00-0.03); Imm Gran Pct Auto 0.4 % (0.0-0.4); Lymphocytes Percent Auto 33.2 % (20-40); Mean Corpuscular HGB Conc 32.3 g/dl (31.0-35.0); Mean Corpuscular Hemoglobin 28.1 pg (27.0-33.0); Mean Corpuscular Volume 87.2 fL (80.0-98.0); Mean Platelet Volume 10.1 fL (9.4-12.3); Monocytes Absolute Auto 0.5 X10*3/uL (0.1-1.2); Monocytes Percent Auto 5.7 % (2-11); Neutrophils Absolute Auto 5.3 x10*3/uL (2.0-8.3); Neutrophils Percent Auto 57.4 % (45-73); Platelet Count 347 X10*3/uL (160-400); Red Blood Count 3.91 X10*6/uL (4.20-5.50); Red Cell Distribution Width 17.2 % (11.0-16.0); White Blood Count 9.2 X10*3/uL (4.8-10.8)
[2024-02-08 11:15] LABS: Appearance Urine Clear; Color Urine Yellow; Glucose Urine UA Negative (Negative); Leukocyte Esterase Urine Small (1+) (Negative); Nitrite Urine Negative (Negative); PH 5.5 (5.0-9.0); UMIC TRIGGER UA YES; Urine Blood Negative (Negative); Urine Ketones Negative (Negative); Urine Protein Negative (Neg-Trace)
[2024-02-08 11:19] LABS: Albumin Level 3.8 g/dL (3.5-5.0); Anion Gap 12 (12-20); Blood Urea Nitrogen 32 mg/dL (9-16); Calcium 9.7 mg/dL (8.4-10.2); Carbon Dioxide 27 mmol/L (22-29); Chloride 104 mmol/L (96-108); Estimated Glomerular Filt Rate 30; Magnesium 1.9 mg/dL (1.6-2.6); Parathyroid Hormone Intact 126.1 pg/mL (8.7-77.1); Phosphorus 3.1 mg/dL (2.7-4.5); Sodium 139 mmol/L (135-145)
[2024-02-08 11:36] LABS: Vitamin D 25-OH Total 40.7 ng/mL (>30)
[2024-02-08 11:38] LABS: HBS Num1 9.67 mIU/mL (0-7.99); Hepatitis B Core Antibody Nonreactive (Nonreactive); Hepatitis B Surface Antigen Negative (Negative); ~HepC Num1 0.13 S/CO (0.00-0.79); ~Hepatitis C Antibody Nonreactive (Nonreactive)
[2024-02-08 12:30] LABS: Bacteria Urine None Seen (None Seen); Hyaline Casts Urine 0-2 /LPF (0-2); RBC Urine 0-2 /HPF (0-2); Squamous Epithelial Cell Urine 0-2 /HPF (0-2); WBC Urine 0-5 /HPF (0-5)
[2024-02-08 12:53] LABS: Creatinine Urine 163.28 mg/dL; Microalbum/Creatinine Ratio Ur 4.8 ug/mg cr (<30); Protein/Creatinine Ratio, Ur 0.06 (<0.2); Total Protein Urine Random 10 mg/dL (<12)
[2024-02-08 13:50] LABS: HBS Num2 10.26 mIU/mL (0-7.99); ~Hepatitis B Surface Antibody GRAYZONE (Nonreactive)
[2024-02-09 11:59] LABS: Complement C3 80 mg/dL (83-193)
[2024-02-09 17:19] LABS: Kappa Light Chain, Free Serum 33.3 mg/L (3.3-19.4); Lambda Light Chain, Free Serum 19.6 mg/L (5.7-26.3)
[2024-02-10 11:44] LABS: Prot Elec - Albumin 3.7 g/dL (3.8-4.8); Prot Elec - Alpha1 0.3 g/dL (0.2-0.3); Prot Elec - Alpha2 0.8 g/dL (0.5-0.9); Prot Elec - Beta 1 0.5 g/dL (0.4-0.6); Prot Elec - Beta 2 0.4 g/dL (0.2-0.5); Prot Elec - Gamma 1.4 g/dL (0.8-1.7); Prot Elec - Total Protein 7.1 g/dL (6.1-8.1)
[2024-02-12 15:54] LABS: Anti Nuclear Antibody Screen NEGATIVE (NEGATIVE)
== END 2024-02-08 09:42 | disposition home or self-care (01) ==
LOC: HO.LAB 09:41
PROVIDERS: PCP Internal Medicine Nephrology; Visit Provider Internal Medicine Nephrology
DX: I12.9 Hypertensive chronic kidney disease with stage 1 through stage 4 chronic kidney disease, or unspecified chronic kidney disease (principal); E10.22 Type 1 diabetes mellitus with diabetic chronic kidney disease; N18.31 Chronic kidney disease, stage 3a
CPT/HCPCS: 36415; 80051; 81001; 82040; 82043; 82306; 82310; 82565; 82570; 83521; 83735; 83970; 84100; 84156; 84165; 84520; 85025; 86038; 86160; 86704; 86706; 86803; 87340

== ENCOUNTER 2024-02-09 10:25 | Outpatient (REF) | payer MEDICARE, SELFPAY | END 2024-02-09 10:26 | disposition home or self-care (01) | LOC: HO.MAMMO 10:25 | PROVIDERS: PCP Internal Medicine; Visit Provider Internal Medicine | DX: Z12.31 Encounter for screening mammogram for malignant neoplasm of breast (principal) | CPT/HCPCS: 77063; 77067 ==

== ENCOUNTER → 2024-02-09 10:30 | Outpatient (BNV) | payer MEDICARE, SELFPAY | PROVIDERS: PCP Internal Medicine; Visit Provider Radiology Diagnostic Radiology | DX: Z12.31 Encounter for screening mammogram for malignant neoplasm of breast (principal) | CPT/HCPCS: 77063; 77067 ==

== ENCOUNTER 2024-02-10 13:27 | Outpatient (AMB) | payer MEDICARE, SELFPAY ==
[2024-02-10 13:31] VITALS: BMI 34.7
--- NOTE | 2024-02-10 13:31 | A.OFFVIS_ITS ---
Vital Signs 02/10/24 13:31 Height 5 ft 2 in Weight 190 lb BMI 34.7 Intake Visit Reasons: OV- Left shoulder MRI review Intake Note: Manda is a 73-year-old right-hand dominant female who presents with complaints of intermittent discomfort in her left shoulder. She reports mild weakness when lifting her hand above shoulder height. She does have discomfort when she sleeps on her left shoulder. She takes Tylenol which gives her fairly good relief. She wishes hold off on surgery if at all possible. Allergies Penicillins [PCN] Allergy (Unknown, Verified 11/11/23 14:52) THROAT SWELLING\ FISOHEX Allergy (Unknown, Uncoded 10/16/22 13:44) RASH Phisohex Allergy (Unknown, Uncoded 10/16/22 13:44) Unknown Medication List - Last Reconciled 02/10/24 by Flakito Dowd MD amlodipine 10 mg PO DAILY 90 days aspirin (Adult Aspirin Regimen) 81 mg PO DAILY blood sugar diagnostic (Contour Next Test Strips) 2 times a day cholecalciferol (vitamin D3) (Vitamin D3) 25 mcg PO DAILY Humalog KwikPen Insulin (insulin lispro) 30 units (0.3 mL) subcut TID NS lisinopril-hydrochlorothiazide 20-12.5 mg 2 tabs PO DAILY 90 days multivitamin 1 tab PO DAILY pen needle, diabetic (BD Ultra-Fine Micro Pen Needle) 4x daily rosuvastatin 5 mg PO DAILY 90 days Tresiba FlexTouch U-100 (insulin degludec) 42 units (0.42 mL) subcut DAILY 90 days NS [facility] Medical History Uncontrolled type 2 diabetes mellitus with hyperglycemia, with long-term current use of insulin Transaminitis Heart murmur Vitamin D deficiency HLD (hyperlipidemia) Diabetic retinopathy Non-toxic multinodular goiter Dyslipidemia Hypertension Obesity (BMI 30-39.9) Diabetic polyneuropathy associated with type 1 diabetes mellitus Surgical History H/O colonoscopy H/O laser iridotomy History of carpal tunnel release History of ear surgery Hx of hysterectomy Family History Father No problems noted. Mother Hypertension Social History Alcohol intake: current Alcohol intake frequency: holidays/special occasions only Patient Tobacco Use Status: Former Tobacco user Quit Date: 2003 Years Smoked: 30+/- years Current occupational status: retired Current occupation: Right hand dominate Physical Exam Vital Signs: BMI result Body Mass Index 34.7 Const Other: Well-nourished well-developed very friendly male awake alert and oriented x3 in no acute distress Extrem Other: Bilateral upper extremity examination shows good capillary refill, no skin lesions noted, normal sensation light touch Left shoulder examination shows almost full range of motion when compared to her right shoulder, 4/5 strength with supraspinatus testing, positive impingement signs Results Reviewed Results Reviewed: MRI of the patient's left shoulder shows a type 2 acromion, severe acromioclavicular joint narrowing, a full-thickness tear of the supraspinatus tendon Assessment & Plan Assessment & Plan (1) Left shoulder pain: Code(s): M25.512 - Pain in left shoulder Category: Medical Plan Ms. Schwarz presents with left shoulder pain and weakness due to impingement synd kehinde and a full-thickness rotator cuff tear. I a lengthy discussion regarding treatment options. She wishes to hold off on surgery for now. She does understand that her rotator cuff tear can become larger in size and even irreparable over time. The do's and don'ts of lifting were discussed at length with the patient. She will follow up with me on an as-needed basis should her symptoms worsen in any way. Feel free to call me at any time should questions regarding her orthopedic management arise. I spent 21 minutes in reviewing the patient's records and imaging studies, seeing the patient and documenting in the medical record. Coding Level of Care Code Est Pt Level 3 (59419) Diagnoses Left shoulder pain M25.512
== END 2024-02-10 13:49 | disposition home or self-care (01) ==
PROVIDERS: PCP Internal Medicine Nephrology; Visit Provider Orthopaedic Surgery
DX: M25.512 Pain in left shoulder (principal)
CPT/HCPCS: 99213

== ENCOUNTER → 2024-02-10 13:27 | Outpatient (BNVA) | payer MEDICARE, SELFPAY | PROVIDERS: PCP Internal Medicine Nephrology; Visit Provider Orthopaedic Surgery | DX: M25.512 Pain in left shoulder (principal) | CPT/HCPCS: 99212 ==

== ENCOUNTER 2024-02-22 11:19 | Outpatient (AMB) | payer MEDICARE, SELFPAY ==
[2024-02-22 11:30] VITALS: BMI 34.9
--- NOTE | 2024-02-22 11:30 | A.OFFVIS_ITS ---
VS Expanded 02/22/24 11:30 Height 5 ft 2 in Weight 190 lb 11.198 oz BMI 34.9 Intake Visit Reasons: T1 DM Allergies Penicillins [PCN] Allergy (Unknown, Verified 11/11/23 14:52) THROAT SWELLING\ FISOHEX Allergy (Unknown, Uncoded 10/16/22 13:44) RASH Phisohex Allergy (Unknown, Uncoded 10/16/22 13:44) Unknown Nutrition Presentation Details: Pt presents for MNT f/u for T1DM Pt reports having joined weight [employer], looking for meal ideas to help stay within points (reports goal is 21 points per day) pt reports having 28 +/day Pt reports blood sugar are improving, working with email campaign specialist physical activity: daily life activities fluids: 32 oz/day of water and 2 c of coffee or tea per day BS Monitoring Most Recent Diabetes Results: Microalb/Creat Ratio 4.8 ug/mg cr (<30) 02/08/24 Creatinine 1.66 mg/dL (0.5-1.4) H 02/08/24 Blood Urea Nitrogen 32 mg/dL (9-16) H 02/08/24 Sodium 139 mmol/L (135-145) 02/08/24 Potassium 4.0 mmol/L (3.3-5.1) 02/08/24 Chloride 104 mmol/L (96-108) 02/08/24 Carbon Dioxide 27 mmol/L (22-29) 02/08/24 Calcium 9.7 mg/dL (8.4-10.2) 02/08/24 Albumin 3.8 g/dL (3.5-5.0) 02/08/24 PFSH Medical History Uncontrolled type 2 diabetes mellitus with hyperglycemia, with long-term current use of insulin Transaminitis Heart murmur Vitamin D deficiency HLD (hyperlipidemia) Diabetic retinopathy Non-toxic multinodular goiter Dyslipidemia Hypertension Obesity (BMI 30-39.9) Diabetic polyneuropathy associated with type 1 diabetes mellitus Surgical History H/O colonoscopy H/O laser iridotomy History of carpal tunnel release History of ear surgery Hx of hysterectomy Family History Father No problems noted. Mother Hypertension Social History Alcohol intake: current Alcohol intake frequency: holidays/special occasions only Patient Tobacco Use Status: Former Tobacco user Quit Date: 2003 Years Smoked: 30+/- years Current occupational status: retired Current occupation: Right hand dominate Assessment & Plan Assessment & Plan (1) Type 1 diabetes mellitus with hyperglycemia: Code(s): E10.65 - Type 1 diabetes mellitus with hyperglycemia Category: Medical Plan: Review healthy plate method meal planning EsT Kcal NEEDS as per 25 /kg bw: 2100 -2200 USED WT : 86 kg est protein needs as per 0.8-1.0 g/kg bw: 86 g/d est fluid needs as per 25 ml/kg bw: 2600ml/d Na < 2000 mg/d Educate patient on: (R= Reviewed, V = verbalizes understanding N/R= Needs review N/A= not applicable) * Food sources of carbohydrates and serving adequate serving sizes : R V * Difference between complex carbohydrates and simple carbohydrates, role of f iber: R V * Differences between fats (MUFA/PUFA/saturated fats, trans fats) and food sources of various fats: R V * Food sources of sodium and salt and healthy modifications for heart health and kidney health: R V * Vitamins and minerals: R V * How to interpret food labels: R V * Healthy Plate method concept: R V * Physical activity: benefits and precaution: R V Patient Instructions: Work on reducing ultra processed foods ( pastries/fried/pre fried foods ) choose fruit or yogurt or nuts instead and add spices to add flavor drink water with meals/snacks keep physically active as able Coding Level of Care Code Nutr Indiv Subseq (29540) Diagnoses Type 1 diabetes mellitus with hyperglycemia E10.65 Time Spent (min) 30
== END 2024-02-22 11:56 | disposition home or self-care (01) ==
PROVIDERS: PCP Internal Medicine; Visit Provider Dietitian, Registered
DX: E10.65 Type 1 diabetes mellitus with hyperglycemia (principal)

== ENCOUNTER → 2024-02-22 11:19 | Outpatient (BNVA) | payer MEDICARE, SELFPAY | PROVIDERS: PCP Internal Medicine; Visit Provider Dietitian, Registered | DX: E10.65 Type 1 diabetes mellitus with hyperglycemia (principal) | CPT/HCPCS: 97803 ==

== ENCOUNTER 2024-05-11 14:22 | Outpatient (AMB) | payer MEDICARE, SELFPAY ==
[2024-05-11 14:23] VITALS: BP 108/52; PULSE 63; BMI 34.2
--- NOTE | 2024-05-11 14:23 | MHC.OFFVIS ---
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 Accompanied by: Self / Same As Patient Allergies Penicillins [PCN] Allergy (Unknown, Verified 05/11/24 14:30) THROAT SWELLING\ FISOHEX Allergy (Unknown, Uncoded 05/11/24 14:30) RASH Phisohex Allergy (Unknown, Uncoded 05/11/24 14:30) Unknown Medication List - Last Reconciled 05/11/24 by Cristiana Julio MD amlodipine 10 mg PO DAILY 90 days aspirin (Adult Aspirin Regimen) 81 mg PO DAILY blood sugar diagnostic (Contour Next Test Strips) 2 times a day cholecalciferol (vitamin D3) (Vitamin D3) 25 mcg PO DAILY Humalog KwikPen Insulin (insulin lispro) 30 units (0.3 mL) subcut TID NS lisinopril-hydrochlorothiazide 20-12.5 mg 2 tabs PO DAILY 90 days multivitamin 1 tab PO DAILY pen needle, diabetic (BD Ultra-Fine Micro Pen Needle) 4x daily rosuvastatin 5 mg PO DAILY 90 days Tresiba FlexTouch U-100 (insulin degludec) 52 units (0.52 mL) subcut DAILY 90 days NS HPI Comments Details: 73 year old female with past medical history of insulin dependent diabetes presenting for follow up. She was previously followed by Dr. Carson, and then Dr. Brown. Initially diagnosed with T1DM at the age of 39 when she was having frequent infections. She has a history of hypertension, aortic stenosis, CKD, Current regimen is Tresiba 52 units and Humalog 20, 22, 18 units. Not missing doses Dexcom download shows average glucose to be 168 with standard deviation with 7.3%. 54 range with 44% hyperglycemia and 2% hypoglycemia.. Pattern shows elevation between 1015pm and 250 am. She does eat a snack generally around 9pm. Unfortunately tells me her low blood glucose readings are between 2am and 5am Treats lows with glucose tablets. Checks sugar after to ensure it is rising. Follows the rule of 15's. Positive Family history of T2DM in both Grandparents, her Sister and 2 children. eye exam UTD Denies neuropathy, sees podiatry Has nephropathy, on lisinopril 20 mg PO daily. alb/cr +. Sees nephrology Has HLD, on Rosuvastatin 5 mg PO daily. Denies history of CAD. Has had diabetes education. Diet/Carb counting: Counts carbs with every meal. Denies prior episodes of DKA. Denies prior severe episodes of hypoglycemia requiring help or hospitalization. Thyroid US: 09/03/2021 Right Thyroid Lobe: 4.4 x 2.1 x 1.8 cm, volume 8.6 mL. Previously 4.2 x 1.7 x 1.3 cm, volume 4.7 mL. Parenchyma: The gland echotexture is homogeneous. Thyroid vascularity is normal. Left Thyroid Lobe: 3.5 x 1.8 x 1.4 cm, volume 4.5 mL. Previously 4.0 x 1.8 x 1.2 cm, volume 4.6 mL. Parenchyma: The gland echotexture is homogeneous. Thyroid vascularity is normal. Isthmus: 0.42 cm in maximum AP dimension. Previously 0.46 cm. Estimated total number of nodules greater than or equal to 1 cm: 0. Android Software Engineer nodules are described as follows: ROS CONSTITUTIONAL: Denies weight loss, fever and chills. HEENT: Denies changes in vision and hearing. RESPIRATORY: Denies SOB and cough. CV: Denies palpitations and CP GI: Denies abdominal pain, nausea, vomiting and diarrhea. : Denies dysuria and urinary frequency. MSK: Denies new myalgia and joint pain. SKIN: Denies rash and pruritus. NEUROLOGICAL: Denies headache PSYCHIATRIC: Denies recent changes in mood. PHYSICAL EXAM: GENERAL: Alert and oriented x 3. NAD EYES: EOMI. Anicteric. HENT: Moist mucous membranes. No scleral icterus. No cervical lymphadenopathy. LUNGS: Clear to auscultation bilaterally. CARDIOVASCULAR: Regular rate and rhythm. +systolic murmur ABDOMEN: Soft, non-tender +bs EXTREMITIES: No edema. Non-tender. SKIN: No rashes or lesions. Warm. NEUROLOGIC: No focal neurological deficits. PSYCHIATRIC: Cooperative. Appropriate mood and affect [facility] Medical History Uncontrolled type 2 diabetes mellitus with hyperglycemia, with long-term current use of insulin Transaminitis Heart murmur Vitamin D deficiency HLD (hyperlipidemia) Diabetic retinopathy Non-toxic multinodular goiter Dyslipidemia Hypertension Obesity (BMI 30-39.9) Diabetic polyneuropathy associated with type 1 diabetes mellitus Surgical History H/O colonoscopy H/O laser iridotomy History of carpal tunnel release History of ear surgery Hx of hysterectomy Family History Father No problems noted. Mother Hypertension Social History Alcohol intake: current Alcohol intake frequency: holidays/special occasions only Patient Tobacco Use Status: Former Tobacco user Years Smoked: 30+/- years Current occupational status: retired Current occupation: Right hand dominate Physical Exam Vital Signs: Last Vital Signs Pulse 63 05/11/24 14:23 BP 108/52 L 05/11/24 14:23 BMI result Body Mass Index 34.2 Results AMB Hemoglobin A1c AMB Hemoglobin A1c 8.0 % Last Edit by MIKE Anne on 05/11/24 14:43 Results Reviewed Results Reviewed: Laboratory Last Values Glucose (Clinic) 282 mg/dL (60-115) H 05/11/24 14:33 Hgb A1c (Clinic) 8.0 % (4.0-6.0) H 05/11/24 14:36 Assessment & Plan Assessment & Plan (1) Uncontrolled type 2 diabetes mellitus with hyperglycemia, with long-term current use of insulin: Code(s): E11.65 - Type 2 diabetes mellitus with hyperglycemia; Z79.4 - quality project manager (current) use of insulin Category: Medical (2) Chronic kidney disease, stage III (moderate): Code(s): N18.30 - Chronic kidney disease, stage 3 unspecified Category: Medical Qualifiers: Chronic kidney disease stage 3 subtype: unspecified whether 3a or 3b Qualified Code(s): N18.30 - Chronic kidney disease, stage 3 unspecified Plan: Following with nephrology (3) Diabetic retinopathy: Code(s): E11.319 - Type 2 diabetes mellitus with unspecified diabetic retinopathy without macular edema Category: Medical Qualifiers: Diabetes mellitus type: other specified (including ZACHARY) Diabetic retinopathy severity: with unspecified retinopathy severity Diabetes mellitus macular edema: macular edema presence unspecified Laterality: unspecified laterality Qualified Code(s): E13.319 - Other specified diabetes mellitus with unspecified diabetic retinopathy without macular edema Plan 14 day A1C estimate at 7.3%. A few overnight lows with late evening early administrative resources associate highs limiting use of short acting insulin with her evening snack Continue Tresiba at 52u continue humalog 20u breakfast, 22 lunch and increase from 18 to 22 at dinner Orders: Orders AMB Hemoglobin A1c Today E11.65 - Type 2 diabetes mellitus with hyperglycemia, Z13.9 - Encounter for screening, unspecified, Z79.4 - quality project manager (current) use of insulin Medications: New Dexcom G7 Sensor (blood-glucose sensor) As directed every 14 days 6 ea 3RF NS E11.65 - Type 2 diabetes mellitus with hyperglycemia, Z79.4 - quality project manager (current) use of insulin Coding Level of Care Code Est Pt Level 5 (32251) Diagnoses Uncontrolled type 2 diabetes mellitus with hyperglycemia, with long-term current use of insulin E11.65; Z79.4 Stage 3 chronic kidney disease, unspecified whether stage 3a or 3b CKD N18.30 Chronic kidney disease stage 3 subtype: unspecified whether 3a or 3b Diabetic retinopathy associated with diabetes mellitus of other type, macular edema presence unspecified, unspecified laterality, unspecified retinopathy severity E13.319 Diabetes mellitus type: other specified (including ZACHARY) Diabetic retinopathy severity: with unspecified retinopathy severity Diabetes mellitus macular edema: macular edema presence unspecified Laterality: unspecified laterality Time Spent (min) 42
[2024-05-11 14:38] LABS: Glucose, Whole Blood 282 mg/dL (60-115)
== END 2024-05-11 15:12 | disposition home or self-care (01) ==
PROVIDERS: PCP Internal Medicine; Visit Provider Internal Medicine
DX: E11.65 Type 2 diabetes mellitus with hyperglycemia (principal); Z79.4 Long term (current) use of insulin; N18.30 Chronic kidney disease, stage 3 unspecified; E13.319 Other specified diabetes mellitus with unspecified diabetic retinopathy without macular edema
CPT/HCPCS: 99215

== ENCOUNTER → 2024-05-11 14:22 | Outpatient (BNVA) | payer MEDICARE, SELFPAY | PROVIDERS: PCP Internal Medicine; Visit Provider Internal Medicine | DX: E11.22 Type 2 diabetes mellitus with diabetic chronic kidney disease (principal); N18.30 Chronic kidney disease, stage 3 unspecified; E13.319 Other specified diabetes mellitus with unspecified diabetic retinopathy without macular edema; Z79.4 Long term (current) use of insulin | CPT/HCPCS: 82947; 83036; 99212 ==

== ENCOUNTER 2024-05-26 12:25 | Outpatient (AMB) | payer MEDICARE, SELFPAY ==
--- NOTE | 2024-05-26 13:00 | MHC.AMDMED ---
Intake Intake Visit Reasons: 30 min/CONFIRMED Supervisor Delivery Department Required: No Accompanied by: Self / Same As Patient Allergies Penicillins [PCN] Allergy (Unknown, Verified 05/11/24 14:30) THROAT SWELLING\ FISOHEX Allergy (Unknown, Uncoded 05/11/24 14:30) RASH Phisohex Allergy (Unknown, Uncoded 05/11/24 14:30) Unknown HPI Comprehensive Diabetes Asmnt Most Recent Diabetes Results: Hemoglobin A1c 8.9 % 02/23/20 Microalb/Creat Ratio 4.8 ug/mg cr (<30) 02/08/24 Cholesterol 165 mg/dL 01/22/23 HDL Cholesterol 49 mg/dL 01/22/23 Triglycerides 66 mg/dL 01/22/23 Creatinine 1.66 mg/dL (0.5-1.4) H 02/08/24 Blood Urea Nitrogen 32 mg/dL (9-16) H 02/08/24 Sodium 139 mmol/L (135-145) 02/08/24 Potassium 4.0 mmol/L (3.3-5.1) 02/08/24 Chloride 104 mmol/L (96-108) 02/08/24 Carbon Dioxide 27 mmol/L (22-29) 02/08/24 Calcium 9.7 mg/dL (8.4-10.2) 02/08/24 AST 16 U/L (5-31) 01/22/23 ALT 15 U/L (0-31) 01/22/23 Total Protein 7.2 g/dL (6.5-8.0) 01/22/23 Albumin 3.8 g/dL (3.5-5.0) 02/08/24 [facility] Medical History Uncontrolled type 2 diabetes mellitus with hyperglycemia, with long-term current use of insulin Transaminitis Heart murmur Vitamin D deficiency HLD (hyperlipidemia) Diabetic retinopathy Non-toxic multinodular goiter Dyslipidemia Hypertension Obesity (BMI 30-39.9) Diabetic polyneuropathy associated with type 1 diabetes mellitus Surgical History H/O colonoscopy H/O laser iridotomy History of carpal tunnel release History of ear surgery Hx of hysterectomy Family History Father No problems noted. 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 0% Hyperglycemia:? 35% Time in Range:? 64% Average glucose for the last 2 weeks? 165 mg/dL Patient's last A1c 8% on 05/11/2024 Patient reports she has been less physically active, feeling tired and bored. Discussed with patient the importance of physical activity and maintaining muscle mass. Printed out upper body workout with exercise bands for patient to try. Patient also reports she has stationary bicycle at home that she will attempt to ride 5 minutes a day Patient has several episodes of hypoglycemia on CGM download Reviewed with patient how to treat low blood sugar with rule of 15s, patient uses jelly beans and regular soda to treat low blood sugar Reviewed how to interpret trend arrows Reminded patient that to check finger sticks if symptoms do not match sensor reading. Discussed lag time between finger stick and sensor data.? Patient able to insert sensor independently at home without issue.? Portions of this note were created using voice recognition software, please excuse any words or phrases that may have been misinterpreted. Patient Instructions: Patient will increase physical activity to begin 5 minutes a day Patient will follow-up with clinical informatics educator in 4 months Patient will contact clinical informatics educator questions or concerns Coding Level of Care Code Est Pt Level 1 (82356) Diagnoses Uncontrolled type 2 diabetes mellitus with hyperglycemia, with long-term current use of insulin E11.65; Z79.4
== END 2024-05-26 13:02 | disposition home or self-care (01) ==
PROVIDERS: PCP Internal Medicine; Visit Provider Registered Nurse Diabetes Educator
DX: E11.65 Type 2 diabetes mellitus with hyperglycemia (principal); Z79.4 Long term (current) use of insulin

== ENCOUNTER → 2024-05-26 12:25 | Outpatient (BNVA) | payer MEDICARE, SELFPAY | PROVIDERS: PCP Internal Medicine; Visit Provider Registered Nurse Diabetes Educator | DX: E11.65 Type 2 diabetes mellitus with hyperglycemia (principal); Z79.4 Long term (current) use of insulin | CPT/HCPCS: 99211 ==

== ENCOUNTER 2024-06-03 09:54 | Outpatient (REF) | payer MEDICARE, SELFPAY ==
[2024-06-03 10:59] LABS: Appearance Urine Clear; Color Urine Yellow; Glucose Urine UA Negative (Negative); Leukocyte Esterase Urine Trace (Negative); Nitrite Urine Negative (Negative); PH 5.5 (5.0-9.0); Specific Gravity - Urine 1.015 (1.005-1.025); UMIC TRIGGER UA YES; Urine Blood Negative (Negative); Urine Ketones Negative (Negative); Urine Protein Negative (Neg-Trace)
[2024-06-03 11:04] LABS: Bacteria Urine None Seen (None Seen); Hyaline Casts Urine 0-2 /LPF (0-2); RBC Urine 0-2 /HPF (0-2); Squamous Epithelial Cell Urine 0-2 /HPF (0-2); WBC Urine 0-5 /HPF (0-5)
[2024-06-03 11:36] LABS: Anion Gap 13 (12-20); Blood Urea Nitrogen 25 mg/dL (9-16); Calcium 10.2 mg/dL (8.4-10.2); Carbon Dioxide 26 mmol/L (22-29); Chloride 103 mmol/L (96-108); Estimated Glomerular Filt Rate 38; Potassium 3.9 mmol/L (3.3-5.1); Sodium 138 mmol/L (135-145)
[2024-06-03 12:09] LABS: Microalbumin Urine < 5.0 mg/L; Total Protein Urine Random < 7 mg/dL (<12)
== END 2024-06-03 09:55 | disposition home or self-care (01) ==
LOC: HO.LAB 09:54
PROVIDERS: PCP Nurse Practitioner Family; Visit Provider Internal Medicine Nephrology
DX: E10.22 Type 1 diabetes mellitus with diabetic chronic kidney disease (principal); I12.9 Hypertensive chronic kidney disease with stage 1 through stage 4 chronic kidney disease, or unspecified chronic kidney disease; N18.32 Chronic kidney disease, stage 3b
CPT/HCPCS: 36415; 80051; 81001; 82043; 82310; 82565; 82570; 84156; 84520

== ENCOUNTER 2024-06-23 10:21 | Outpatient (AMB) | payer MEDICARE, SELFPAY ==
[2024-06-23 10:36] VITALS: BMI 34.4
--- NOTE | 2024-06-23 10:36 | A.OFFVIS_ITS ---
VS Expanded 06/23/24 10:36 Height 5 ft 2 in Weight 188 lb 0.869 oz BMI 34.4 Intake Visit Reasons: T2DM/CONFIRMED Allergies Penicillins [PCN] Allergy (Unknown, Verified 05/11/24 14:30) THROAT SWELLING\ FISOHEX Allergy (Unknown, Uncoded 05/11/24 14:30) RASH Phisohex Allergy (Unknown, Uncoded 05/11/24 14:30) Unknown Nutrition Presentation Details: Pt presents for MNT f/u for T2DM Pt reports working on keeping physically active, using dasha to help her increase activity, reports reaching average of 3000 steps daily . Patient brought her BG record and her 14 day BG average is 179 mg/dL, patient 50% of the time within target and has had less than 1% low blood glucose. Reports treating hypoglycemia by having a fruit or 1/2cup of juice, following rule of 15 Patient admits to having increased appetite in the evening after dinner and sometimes gets up in the middle of the night to have something to eat or drink. food frequency fruits: 2-4/day (fruits and juice) fish: 0-2/week dairy: 3 serving/d vegetable: 3 servings/day fried foods: 2x/wk pastries and similar: 2x/wk beverages: water, juice, milk, coffee, tea , broth etoh: denies smoking: denies BS Monitoring Most Recent Diabetes Results: Microalb/Creat Ratio TNP 06/03/24 Creatinine 1.35 mg/dL (0.5-1.4) 06/03/24 Blood Urea Nitrogen 25 mg/dL (9-16) H 06/03/24 Sodium 138 mmol/L (135-145) 06/03/24 Potassium 3.9 mmol/L (3.3-5.1) 06/03/24 Chloride 103 mmol/L (96-108) 06/03/24 Carbon Dioxide 26 mmol/L (22-29) 06/03/24 Calcium 10.2 mg/dL (8.4-10.2) 06/03/24 [facility] Medical History Uncontrolled type 2 diabetes mellitus with hyperglycemia, with long-term current use of insulin Transaminitis Heart murmur Vitamin D deficiency HLD (hyperlipidemia) Diabetic retinopathy Non-toxic multinodular goiter Dyslipidemia Hypertension Obesity (BMI 30-39.9) Diabetic polyneuropathy associated with type 1 diabetes mellitus Surgical History H/O colonoscopy H/O laser iridotomy History of carpal tunnel release History of ear surgery Hx of hysterectomy Family History Father No problems noted. Mother Hypertension Social History Alcohol intake: current Alcohol intake frequency: holidays/special occasions only Patient Tobacco Use Status: Former Tobacco user Years Smoked: 30+/- years Current occupational status: retired Current occupation: Right hand dominate Assessment & Plan Assessment & Plan (1) Type 1 diabetes mellitus with hyperglycemia: Code(s): E10.65 - Type 1 diabetes mellitus with hyperglycemia Category: Medical Plan: Review low fat/low sodium food concepts EsT Kcal NEEDS as per 25 /kg bw: 2100 -2200 USED WT : 86 kg est protein needs as per 0.8-1.0 g/kg bw: 86 g/d est fluid needs as per 25 ml/kg bw: 2600ml/d Na < 2000 mg/d Educate patient on: (R= Reviewed, V = verbalizes understanding N/R= Needs review N/A= not applicable) * Food sources of carbohydrates and serving adequate serving sizes : R V * Difference between complex carbohydrates and simple carbohydrates, role of fiber: R V * Differences between fats (MUFA/PUFA/saturated fats, trans fats) and food sources of various fats: R V * Food sources of sodium and salt and healthy modifications for heart health and kidney health: R V * Vitamins and minerals: R V * How to interpret food labels: R V * Healthy Plate method concept: R V * Physical activity: benefits and precaution: R V Patient Instructions: Choose a cup of 1% milk or fruit as bedtime snack Choose unsalted nuts/chips, do not use table salt when cooking, ask for sauces/dressing on the side and use in smaller amounts Continue keeping physically active as able Coding Level of Care Code Nutr Indiv Subseq (57620) Diagnoses Type 1 diabetes mellitus with hyperglycemia E10.65 Time Spent (min) 20
== END 2024-06-23 11:02 | disposition home or self-care (01) ==
PROVIDERS: PCP Internal Medicine; Visit Provider Dietitian, Registered
DX: E10.65 Type 1 diabetes mellitus with hyperglycemia (principal)

== ENCOUNTER → 2024-06-23 10:21 | Outpatient (BNVA) | payer MEDICARE, SELFPAY | PROVIDERS: PCP Internal Medicine; Visit Provider Dietitian, Registered | DX: E10.65 Type 1 diabetes mellitus with hyperglycemia (principal) | CPT/HCPCS: 97803 ==

== ENCOUNTER → 2024-06-27 10:23 | Outpatient (REF) | payer MEDICARE, SELFPAY ==
--- NOTE | 2024-06-27 10:27 | CA_ITS ---
Transthoracic Echocardiogram Amended Patient (Last, First, Middle): Manda Schwarz A Gender: Female Date of : 1950 Age: 74 Procedure Date: 06/27/2024 Procedure Type: Transthoracic Echocardiogram Location: OP Height: 157. cm Weight: 85.28 kg BSA: 1.86 m2 Heart Rate: 53 bpm BP: 145 / 55 mmHg Smart Energy Specialist: NICHELLE Quijano MD: Wero Fields MD Program Services Assistant: Austin Hilton MD Symptoms: I35.0 - Nonrheumatic aortic (valve) stenosis Study Quality: Fair ECG Rhythm: Bradycardia Conclusions: - 1. Hyperdynamic LV EF of greater than 70% with impaired relaxation filling pattern 2. [id number] aortic stenosis 3. No gross pericardial effusion Findings Left Ventricle Normal left ventricular cavity size. There is normal left ventricular wall thickness. The left ventricular systolic function is hyperdynamic. The visually estimated ejection fraction is >70%. Spectral Doppler is indicative of an impaired relaxation filling pattern. Elevated left ventricular end diastolic pressure. E/E prime ratio is between 8 and 15 consistent with indeterminate filling pressures.Peak GLS is -19.6%, within normal limits. Right Ventricle Normal right ventricular cavity size and systolic function. Atria The left atrium is likely dilated. Interatrial shunt cannot be excluded. The right atrium is normal in size. Aortic Valve The aortic valve was not well visualized. There is moderate calcification of the aortic valve. There is mild to moderate aortic valve stenosis. There is no aortic valve regurgitation. Mitral Valve There is moderate anterior and posterior mitral leaflet thickening. There is mild anterior and mild posterior mitral annular calcification. There is moderate mitral annular calcification. There is no mitral valve regurgitation. There is no mitral valve stenosis. Pulmonic Valve The pulmonic valve was not well visualized. Tricuspid Valve Likely normal tricuspid valve structure and function. Tricuspid regurgitation envelope is inadequate for calculation of right ventricular systolic pressure. Normal right atrial pressure. Great Vessels All visible segments of the aorta are normal in size. The pulmonary artery was not well visualized. There is no dilatation of the ascending aorta measuring 3.00 cm. Venous The inferior vena cava is normal in size and collapses greater than 50% with inspiration. Pericardium/Pleural There is no evidence of pericardial effusion. Prior Study Comparison No significant change compared to prior study dated: 12/03/2021. Measurements 2D Linear Measurements IVSd: 1.02 0.6-0.9/0.6-1.0 cm LVIDd: 4.50 3.9-5.3/4.2-5.9 cm LVIDd Index: 2.42 2.4-3.2/2.2-3.1 cm/m2 LVIDs: 2.04 2.0-3.6 cm LVPWd: 0.98 0.7-1.1 cm LA Diam: 3.80 2.7-3.8/3.0-4.0 cm LAIDs Index: 2.04 1.5-2.3 cm/m2 LV Mass: 190.84 67-162/88-224 g LV Mass Index: 102.60 43-95/49-115 g/m2 LVOT Diam: 1.80 3.0+(-)1.3 cm 2D Volumes LA Vol: 16.70 2D Systolic Function EF 4C: 76.70 >55% EF 2C: 75.70 >55% EF BiP: 76.70 >55% Mitral Valve MV VTI: 0.44 MV Pk Valerio: 1.19 MV Mn Valerio: 0.53 MV Pk Grad: 6.00 MV Mn Grad: 1.00 MV Pk E: 0.89 MV PK A: 1.09 MV Decel Time: 272.00 E/A: 0.80 E'Lateral: 8.49 E'Medial: 6.42 E/E' Med: 13.80 E/E' Lat: 10.40 PHT: 80.00 MVA PHT: 2.75 MVA Continuity: 1.60 Decel [place]: 3.27 Aortic Valve AoV Pk Valerio: 2.76 AoV Mn Valerio: 1.93 AoV VTI: 0.65 AoV Pk Grad: 30.00 Aov Mn Grad: 17.00 ASHOK Cont.VTI: 1.08 LVOT LVOT Pk Valerio: 1.14 LVOT Mn Valerio: 0.77 LVOT VTI: 0.28 LVOT Pk Grad: 5.00 LVOT Mn Grad: 3.00 LVOT Diam: 1.80 LVOT Area: 2.54 Diastolic Function MV Pk E: 0.89 MV Pk A: 1.09 E/A: 0.80 E'Medial: 6.42 E/E' Med: 13.80 E' Laterial: 8.49 E/E' Lat: 10.40 Right Ventricle TAPSE (mm): 18.20 TVS' Valerio: 11.50 Tricuspid Valve TR Pk Valerio: 1.19 TR Pk Grad: 6.00 RA Press: 3.00 RVSP: 9.00 Great Vessels Aorta Sinus of Valsalva: 3.10 2.0-3.5 cm Ao Asc: 3.00 2.1-3.4 cm Pulmonary Valve PV Pk Valerio: 1.14 Peak PV Grad: 5.00 Updated in Other Vendor System with Status of Final Austin Hilton MD electronically signed on 06/28/2024 8:45:14 AM with status of Final
== END ==
LOC: HO.CARD 10:23
PROVIDERS: PCP Nurse Practitioner Family; Visit Provider Internal Medicine Cardiovascular Disease
DX: I35.0 Nonrheumatic aortic (valve) stenosis (principal)
CPT/HCPCS: 93306; 93356

== ENCOUNTER → 2024-06-27 10:27 | Outpatient (BNV) | payer MEDICARE, SELFPAY | PROVIDERS: PCP Nurse Practitioner Family; Visit Provider Internal Medicine Cardiovascular Disease | DX: I35.0 Nonrheumatic aortic (valve) stenosis (principal); I34.81 Nonrheumatic mitral (valve) annulus calcification | CPT/HCPCS: 93306; 93356 ==

== ENCOUNTER 2024-07-27 09:22 | Outpatient (AMB) | payer MEDICARE, SELFPAY ==
[2024-07-27 09:46] VITALS: BP 124/60; PULSE 58; BMI 34.6
--- NOTE | 2024-07-27 09:46 | A.OFFVIS_ITS ---
Vital Signs 07/27/24 09:46 Height 5 ft 2 in Weight 189 lb 2.506 oz BMI 34.6 BP 124/60 Blood Pressure Location Rt brachial Position Sitting Pulse 58 Pulse Source Monitor Intake Visit Reasons: 1 yr s/p echo Intake Note: 1 yr f/up-echo Circuit Breaker Supervisor Required: No Accompanied by: Self / Same As Patient Allergies Penicillins [PCN] Allergy (Unknown, Verified 05/11/24 14:30) THROAT SWELLING\ FISOHEX Allergy (Unknown, Uncoded 05/11/24 14:30) RASH Phisohex Allergy (Unknown, Uncoded 05/11/24 14:30) Unknown Medication List - Last Reconciled 07/27/24 by Wero Fields MD amlodipine 10 mg PO DAILY 90 days aspirin (Adult Aspirin Regimen) 81 mg PO DAILY blood sugar diagnostic (Contour Next Test Strips) 2 times a day cholecalciferol (vitamin D3) (Vitamin D3) 25 mcg PO DAILY Dexcom G7 Sensor (blood-glucose sensor) As directed every 14 days NS Humalog KwikPen Insulin (insulin lispro) 30 units (0.3 mL) subcut TID NS lisinopril-hydrochlorothiazide 20-12.5 mg 2 tabs PO DAILY 90 days multivitamin 1 tab PO DAILY pen needle, diabetic (BD Ultra-Fine Micro Pen Needle) 4x daily rosuvastatin 5 mg PO DAILY 90 days Tresiba FlexTouch U-100 (insulin degludec) 52 units (0.52 mL) subcut DAILY 90 days NS HPI Comments Details: Pleasant 74-year-old female here for follow-up She has history of diabetes for the last 32 years and has been on insulin. She has retinopathy and peripheral neuropathy. She was found to have a murmur during her examination with endocrinology and was referred to us. She is a retired manager pharmacy. She is saying over the last year since shelter she has not been very active. She also had right leg surgery and gets pain in the right hip which limits her. With her daily activities she has no symptoms in particular no shortness of breath, chest discomfort, dizziness or syncope. Blood pressure control is good. No other concerns right now. echocardiography has shown [id number] aortic valve stenosis. By exam she had clear 2nd heart sound and aortic stenosis did not appear severe. 07/27/2023: She returns for follow-up. She is denying any symptoms. In particular no chest pain or shortness of breath. No dizziness. Has [id number] aortic valve stenosis as of July 2022 echocardiography. Blood pressure control is good. : She is here for follow-up. No symptoms on follow-up. Blood pressure is well controlled. Echocardiography from June is showing [id number] aortic valve stenosis. [facility] Medical History Uncontrolled type 2 diabetes mellitus with hyperglycemia, with long-term current use of insulin Transaminitis Heart murmur Vitamin D deficiency HLD (hyperlipidemia) Diabetic retinopathy Non-toxic multinodular goiter Dyslipidemia Hypertension Obesity (BMI 30-39.9) Diabetic polyneuropathy associated with type 1 diabetes mellitus Surgical History H/O colonoscopy H/O laser iridotomy History of carpal tunnel release History of ear surgery Hx of hysterectomy Family History Father No problems noted. Mother Hypertension Social History Alcohol intake: current Alcohol intake frequency: holidays/special occasions only Patient Tobacco Use Status: Former Tobacco user Years Smoked: 30+/- years Current occupational status: retired Current occupation: Right hand dominate Review of Systems Const Denies chills, Denies fatigue, Denies fever(s), Denies frequent falls, Denies weakness, Denies weight gain and Denies weight loss ENT Denies dizziness Card Denies chest pain, Denies leg edema, Denies lightheadedness, Denies palpitations, Denies dyspnea and Denies dyspnea on exertion Resp Denies cough, Denies dyspnea and Denies dyspnea on exertion GI Denies hematochezia Musc Denies abnormal gait, Denies muscle weakness, Denies numbness, Denies radiating pain into limb and Denies tingling Neuro Denies abnormal gait, Denies dizziness, Denies frequent falls, Denies numbness, Denies tingling and Denies weakness Endo Denies fatigue and Denies palpitations Physical Exam Vital Signs: Last Vital Signs Pulse 58 07/27/24 09:46 BP 124/60 07/27/24 09:46 BMI result Body Mass Index 34.6 GENERAL APPEARANCE: in no acute distress, pleasant. NECK: no carotid bruit, no jugular venous distention. SKIN: no suspicious lesions, warm and dry. HEART: Ejection systolic murmur aortic area with preserved 2nd heart sound. LUNGS: clear to auscultation bilaterally. ABDOMEN: soft, nontender. EXTREMITIES: no edema. PERIPHERAL PULSES: equal. NEUROLOGIC: No gross deficits, AAO X 3 Office Procedures EKG Details: Sinus bradycardia 58 beats per minute, normal axis, nonspecific T-wave changes, QTC 382 milliseconds. [id number], Complete Assessment & Plan Assessment & Plan (1) Hypertension: Code(s): I10 - Essential (primary) hypertension Category: Medical (2) Aortic stenosis: Code(s): I35.0 - Nonrheumatic aortic (valve) stenosis Category: Medical Plan Pleasant 74-year-old female here for follow-up. She has fkft-ml-[id number] aortic valve stenosis. She has hypertension. Blood pressure control is good currently. She will continue same medications. Repeat echocardiography has shown [id number] aortic valve stenosis at this stage. By exam she also does not have severe aortic stenosis. Clinically stable. She will continue same medications and will see us back in 6 months. Thank you for allowing me to participate in the care of your patient. Please feel free to contact me if you have any questions. Coding Level of Care Code Est Pt Level 4 (24028) Diagnoses Hypertension I10 Aortic stenosis I35.0 CPT Codes EKG - CPT: 10776-[id number], Complete ([id number])
== END 2024-07-27 10:07 | disposition home or self-care (01) ==
PROVIDERS: PCP Internal Medicine; Visit Provider Internal Medicine Cardiovascular Disease
DX: I10 Essential (primary) hypertension (principal); I35.0 Nonrheumatic aortic (valve) stenosis
CPT/HCPCS: 93010; 99214

== ENCOUNTER → 2024-07-27 09:22 | Outpatient (BNVA) | payer MEDICARE, SELFPAY | PROVIDERS: PCP Internal Medicine; Visit Provider Internal Medicine Cardiovascular Disease | DX: I10 Essential (primary) hypertension (principal); I35.0 Nonrheumatic aortic (valve) stenosis; Z79.4 Long term (current) use of insulin | CPT/HCPCS: 93005; 99212 ==

== ENCOUNTER 2024-09-07 11:27 | Outpatient (AMB) | payer MEDICARE, SELFPAY ==
--- NOTE | 2024-09-07 11:28 | MHC.OFFVIS ---
Vital Signs 09/07/24 11:30 Height 5 ft 2 in Weight 187 lb 13.341 oz BMI 34.4 BP 128/58 L Blood Pressure Location Rt brachial Position Sitting Pulse 71 Pulse Source Pulse Oximeter Intake Visit Reasons: T2DM/CONFIRMED Intake Note: Patient present today to follow up on Type 2 Diabetes Mellitus. Last Diabetic Eye exam: 05/2024, has yearly appt Last Podiatry Visit: Has an appt 09/12/24 Random Glucose: 90 mg/dl HgA1C: 8.2% 09/07/24 Etl Architect Required: No Accompanied by: Self / Same As Patient Allergies Penicillins [PCN] Allergy (Unknown, Verified 09/07/24 11:36) THROAT SWELLING\ FISOHEX Allergy (Unknown, Uncoded 09/07/24 11:36) RASH Phisohex Allergy (Unknown, Uncoded 09/07/24 11:36) Unknown HPI Comments Details: 74 year old female with past medical history of insulin dependent diabetes presenting for follow up. diagnosed with T1DM at the age of 39 when she was having frequent infections. She has a history of hypertension, aortic stenosis, CKD, Last seen at end of April. 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 Stopped late night humalog with snack. Not missing doses Dexcom download shows average glucose to be 168 with standard deviation with 7.3%. 54 range with 44% hyperglycemia and 2% hypoglycemia.. Pattern shows elevation between 1015pm and 250 am. She does eat a snack generally around 9pm. Unfortunately tells me her low blood glucose readings are between 2am and 5am Treats lows with glucose tablets. Checks sugar after to ensure it is rising. Follows the rule of 15's. Positive Family history of T2DM in both Grandparents, her Sister and 2 children. eye exam UTD Denies neuropathy, sees podiatry Has nephropathy, on lisinopril 20 mg PO daily. alb/cr +. Sees nephrology Has HLD, on Rosuvastatin 5 mg PO daily. Denies history of CAD. Has had diabetes education. Diet/Carb counting: Counts carbs with every meal. Thyroid US: 09/03/2021 Right Thyroid Lobe: 4.4 x 2.1 x 1.8 cm, volume 8.6 mL. Previously 4.2 x 1.7 x 1.3 cm, volume 4.7 mL. Parenchyma: The gland echotexture is homogeneous. Thyroid vascularity is normal. Left Thyroid Lobe: 3.5 x 1.8 x 1.4 cm, volume 4.5 mL. Previously 4.0 x 1.8 x 1.2 cm, volume 4.6 mL. Parenchyma: The gland echotexture is homogeneous. Thyroid vascularity is normal. Isthmus: 0.42 cm in maximum AP dimension. Previously 0.46 cm. Estimated total number of nodules greater than or equal to 1 cm: 0. Consumer Experience Consultant nodules are described as follows: ROS CONSTITUTIONAL: Denies weight loss, fever and chills. HEENT: Denies changes in vision and hearing. RESPIRATORY: Denies SOB and cough. CV: Denies palpitations and CP GI: Denies abdominal pain, nausea, vomiting and diarrhea. : Denies dysuria and urinary frequency. MSK: Denies new myalgia and joint pain. SKIN: Denies rash and pruritus. NEUROLOGICAL: Denies headache PSYCHIATRIC: Denies recent changes in mood. PHYSICAL EXAM: GENERAL: Alert and oriented x 3. NAD EYES: EOMI. Anicteric. HENT: Moist mucous membranes. No scleral icterus. No cervical lymphadenopathy. LUNGS: Clear to auscultation bilaterally. CARDIOVASCULAR: Regular rate and rhythm. +systolic murmur ABDOMEN: Soft, non-tender +bs EXTREMITIES: No edema. Non-tender. SKIN: No rashes or lesions. Warm. NEUROLOGIC: No focal neurological deficits. PSYCHIATRIC: Cooperative. Appropriate mood and affect [facility] Medical History Uncontrolled type 2 diabetes mellitus with hyperglycemia, with long-term current use of insulin Transaminitis Heart murmur Vitamin D deficiency HLD (hyperlipidemia) Diabetic retinopathy Non-toxic multinodular goiter Dyslipidemia Hypertension Obesity (BMI 30-39.9) Diabetic polyneuropathy associated with type 1 diabetes mellitus Surgical History H/O colonoscopy H/O laser iridotomy History of carpal tunnel release History of ear surgery Hx of hysterectomy Family History Father No problems noted. Mother Hypertension Social History Alcohol intake: current Alcohol intake frequency: holidays/special occasions only Patient Tobacco Use Status: Former Tobacco user Years Smoked: 30+/- years Current occupational status: retired Current occupation: Right hand dominate Physical Exam Vital Signs: Last Vital Signs Pulse 71 09/07/24 11:30 BP 128/58 L 09/07/24 11:30 BMI result Body Mass Index 34.4 Results AMB Hemoglobin A1c AMB Hemoglobin A1c 8.2 % Last Edit by MIKE Marks on 09/07/24 12:02 Results Reviewed Results Reviewed: Laboratory Last Values Glucose (Clinic) 90 mg/dL (60-115) 09/07/24 11:42 Hgb A1c (Clinic) 8.2 % (4.0-6.0) H 09/07/24 11:46 Assessment & Plan Assessment & Plan (1) Uncontrolled type 2 diabetes mellitus with hyperglycemia, with long-term current use of insulin: Code(s): E11.65 - Type 2 diabetes mellitus with hyperglycemia; Z79.4 - half-way (current) use of insulin Category: Medical Plan: Adequate control. Hypoglycemia intermittently-usually coming up upon mealtime Increase tresiba to 55 units. Decrease humalog to 20 units TID Short term follow up Orders: Orders AMB Hemoglobin A1c 09/07/24 E11.65 - Type 2 diabetes mellitus with hyperglycemia, Z79.4 - rat exterminator (current) use of insulin Medications: Changed From Tresiba FlexTouch U-100 ARIEL, no substitutions. 52 units (0.52 mL) subcut DAILY 90 days 46.8 mL 1RF NS E11.65 - Type 2 diabetes mellitus with hyperglycemia, Z79.4 - rat exterminator (current) use of insulin To Tresiba FlexTouch U-100 (insulin degludec) ARIEL, no substitutions. 55 units (0.55 mL) subcut DAILY 49.5 mL 3RF 90 days NS E11.65 - Type 2 diabetes mellitus with hyperglycemia, Z79.4 - half-way (current) use of insulin From Humalog KwikPen Insulin 30 units (0.3 mL) subcut TID 45 mL 1RF NS E10.65 - Type 1 diabetes mellitus with hyperglycemia To Humalog KwikPen Insulin (insulin lispro) 20 units (0.2 mL) subcut TID 45 mL 3RF NS E10.65 - Type 1 diabetes mellitus with hyperglycemia From Tresiba FlexTouch U-100 ARIEL, no substitutions. 55 units (0.55 mL) subcut DAILY 90 days 49.5 mL 3RF NS E11.65 - Type 2 diabetes mellitus with hyperglycemia, Z79.4 - rat exterminator (current) use of insulin To Tresiba FlexTouch U-100 (insulin degludec) ARIEL, no substitutions. 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
[2024-09-07 11:30] VITALS: BP 128/58; PULSE 71; BMI 34.4
[2024-09-07 11:48] LABS: Glucose, Whole Blood 90 mg/dL (60-115)
== END 2024-09-07 12:08 | disposition home or self-care (01) ==
PROVIDERS: PCP Internal Medicine; Visit Provider Internal Medicine
DX: E11.65 Type 2 diabetes mellitus with hyperglycemia (principal); Z79.4 Long term (current) use of insulin

== ENCOUNTER → 2024-09-07 11:27 | Outpatient (BNVA) | payer MEDICARE, SELFPAY | PROVIDERS: PCP Internal Medicine; Visit Provider Internal Medicine | DX: E11.65 Type 2 diabetes mellitus with hyperglycemia (principal); E11.21 Type 2 diabetes mellitus with diabetic nephropathy; E11.42 Type 2 diabetes mellitus with diabetic polyneuropathy; E78.5 Hyperlipidemia, unspecified; Z79.4 Long term (current) use of insulin | CPT/HCPCS: 82947; 83036; 99212 ==

== ENCOUNTER 2024-09-22 10:20 | Outpatient (AMB) | payer MEDICARE, SELFPAY ==
[2024-09-22 10:36] VITALS: BMI 34.7
--- NOTE | 2024-09-22 10:36 | A.OFFVIS_ITS ---
VS Expanded 09/22/24 10:36 Height 5 ft 2 in Weight 189 lb 13.088 oz BMI 34.7 Intake Visit Reasons: T2DM/Confirmed Allergies Penicillins [PCN] Allergy (Unknown, Verified 09/07/24 11:36) THROAT SWELLING\ FISOHEX Allergy (Unknown, Uncoded 09/07/24 11:36) RASH Phisohex Allergy (Unknown, Uncoded 09/07/24 11:36) Unknown Nutrition Presentation Details: Pt presents for MNT f/u for T2DM Pt reports feeling well Diet modifications challenges: increase snacks throughout the day (crackers, juice, fruits, pastries, jordana) food frequency fruits: 3/d dairy 4serving/d ve x/wk starches > 22 serving/d fish: 0-1/xwk pastries++ etoh/smoking:denies physical activity:daily life activities BS Monitoring Most Recent Diabetes Results: Microalb/Creat Ratio TNP 06/03/24 Creatinine 1.35 mg/dL (0.5-1.4) 06/03/24 Blood Urea Nitrogen 25 mg/dL (9-16) H 06/03/24 Sodium 138 mmol/L (135-145) 06/03/24 Potassium 3.9 mmol/L (3.3-5.1) 06/03/24 Chloride 103 mmol/L (96-108) 06/03/24 Carbon Dioxide 26 mmol/L (22-29) 06/03/24 Calcium 10.2 mg/dL (8.4-10.2) 06/03/24 PFSH Medical History Uncontrolled type 2 diabetes mellitus with hyperglycemia, with long-term current use of insulin Transaminitis Heart murmur Vitamin D deficiency HLD (hyperlipidemia) Diabetic retinopathy Non-toxic multinodular goiter Dyslipidemia Hypertension Obesity (BMI 30-39.9) Diabetic polyneuropathy associated with type 1 diabetes mellitus Surgical History H/O colonoscopy H/O laser iridotomy History of carpal tunnel release History of ear surgery Hx of hysterectomy Family History Father No problems noted. Mother Hypertension Social History Alcohol intake: current Alcohol intake frequency: holidays/special occasions only Patient Tobacco Use Status: Former Tobacco user Years Smoked: 30+/- years Current occupational status: retired Current occupation: Right hand dominate Assessment & Plan Assessment & Plan (1) Type 1 diabetes mellitus with hyperglycemia: Code(s): E10.65 - Type 1 diabetes mellitus with hyperglycemia Category: Medical Plan: Review low fat/low sodium food concepts EsT Kcal NEEDS as per 25 /kg bw: 2100 -2200 USED WT : 86 kg est protein needs as per 0.8-1.0 g/kg bw: 86 g/d est fluid needs as per 25 ml/kg bw: 2600ml/d Na < 2000 mg/d Educate patient on: (R= Reviewed, V = verbalizes understanding N/R= Needs review N/A= not applicable) * Food sources of carbohydrates and serving adequate serving sizes : R V * Difference between complex carbohydrates and simple carbohydrates, role of fiber: R V * Differences between fats (MUFA/PUFA/saturated fats, trans fats) and food sources of various fats: R V * Food sources of sodium and salt and healthy modifications for heart health an d kidney health: R V * Vitamins and minerals: R V * How to interpret food labels: R V * Healthy Plate method concept: R V * Physical activity: benefits and precaution: R V Patient Instructions: Choose foods high in fiber and low sodium snacks ( carrots, hoover tomatoes, celery, fruit/veg smoothies) Coding Level of Care Code Nutr Indiv Subseq (35517) Diagnoses Type 1 diabetes mellitus with hyperglycemia E10.65 Time Spent (min) 30
== END 2024-09-22 11:04 | disposition home or self-care (01) ==
PROVIDERS: PCP Internal Medicine; Visit Provider Dietitian, Registered
DX: E10.65 Type 1 diabetes mellitus with hyperglycemia (principal)

== ENCOUNTER → 2024-09-22 10:20 | Outpatient (BNVA) | payer MEDICARE, SELFPAY | PROVIDERS: PCP Internal Medicine; Visit Provider Dietitian, Registered | DX: E10.65 Type 1 diabetes mellitus with hyperglycemia (principal) | CPT/HCPCS: 97803 ==

== ENCOUNTER 2024-12-16 13:22 | Outpatient (AMB) | payer MEDICARE, SELFPAY ==
--- NOTE | 2024-12-16 13:09 | A.OFFVIS_ITS ---
Vital Signs 12/16/24 13:30 12/16/24 13:49 Height 5 ft 2 in Weight 189 lb 9.561 oz BMI 34.7 BP 160/66 H 164/60 H Blood Pressure Location Rt brachial Rt brachial Position Sitting Sitting Pulse 61 Pulse Source Pulse Oximeter Pulse Oximetry (%) 98 Oxygen Delivery Method Room Air Intake Visit Reasons: T2DM Intake Note: Patient presents today for a follow-up on Type 2 Diabetes Mellitus: Last Diabetic eye exam was on: 05/12/2024 Last Podiatry exam was on: 09/12/2024 Most recent HbA1c: 7.2%, 12/16/2024 Random Glucose- 152 mg/dL, Today Rewards Consultant Required: No Accompanied by: Self / Same As Patient Allergies Penicillins [PCN] Allergy (Unknown, Verified 12/16/24 13:32) THROAT SWELLING\ FISOHEX Allergy (Unknown, Uncoded 12/16/24 13:32) RASH Phisohex Allergy (Unknown, Uncoded 12/16/24 13:32) Unknown HPI Comments Details: 74 year old female with past medical history of insulin dependent diabetes presenting for follow up. Diagnosed with T1DM at the age of 39 when she was having frequent infections. She was last seen by Dr. Josesito Garcia 09/04/24 with an A1c of 8.2%. Cpeptide 0.40 Current regimen: Tresiba 55 units Humalog 20 units t.i.d. at supper dose 18-20 Dexcom average glucose: 166 14 day continuous glucose monitor report reviewed Glucose Managment indicator 7.3 % Days with CGM data 94 % TIme in ranges: 10 % very high (above 250) 33 % high ?(181-250) 55 % in range ?(70-180] 2 % low (69-55) Less than 1 % ?very low (below 54) Interpretation [overall in reasonable control given her age Family history of T2DM in both Grandparents, her Sister and 2 children. Denies retinopathy eye exam UTD Denies neuropathy, denies: Numbness, tingling, pain or cramping in the lower extremity sees podiatry Has nephropathy, on lisinopril 20 mg PO daily. alb/cr +. Sees nephrology eGFR 38 05/2024 Positive Family history of T2DM in both Grandparents, her Sister and 2 children. Has stable retinopathy eye exam has appt scheduled last seen May Has neuropathy: Has tingling in the feet occasional pain sees podiatry very 3 months Has nephropathy, on lisinopril 20 mg PO daily. alb/cr +. Sees nephrology eGFR 38 Dr. Hoyt sees every 3 moths Has HLD, on Rosuvastatin 5 mg PO daily. Denies history of CAD. Has murmur seen annually Has had diabetes education. Has 2 sons in the area, 1 daughter in [place] and 1 . Diet/Carb counting: trys to balance eats alot of veg trying to cut back on rice, elminated pasta exercise: walks some Thyroid US: 09/03/2021 Right Thyroid Lobe: 4.4 x 2.1 x 1.8 cm, volume 8.6 mL. Previously 4.2 x 1.7 x 1.3 cm, volume 4.7 mL. Parenchyma: The gland echotexture is homogeneous. Thyroid vascularity is normal. Left Thyroid Lobe: 3.5 x 1.8 x 1.4 cm, volume 4.5 mL. Previously 4.0 x 1.8 x 1.2 cm, volume 4.6 mL. Parenchyma: The gland echotexture is homogeneous. Thyroid vascularity is normal. Isthmus: 0.42 cm in maximum AP dimension. Previously 0.46 cm. Estimated total number of nodules greater than or equal to 1 cm: 0. Window Shade Cutter nodules are described as follows: eGFR 38 c microalbumin <5.0 Has HLD, on Rosuvastatin 5 mg PO daily. Denies history of CAD. Denies chest pain, dyspnea or symptoms of claudication Has had diabetes education. Diet/Carb counting: Counts carbs with every meal. [facility] Medical History Uncontrolled type 2 diabetes mellitus with hyperglycemia, with long-term current use of insulin Transaminitis Heart murmur Vitamin D deficiency HLD (hyperlipidemia) Diabetic retinopathy Non-toxic multinodular goiter Dyslipidemia Hypertension Obesity (BMI 30-39.9) Diabetic polyneuropathy associated with type 1 diabetes mellitus Surgical History H/O colonoscopy H/O laser iridotomy History of carpal tunnel release History of ear surgery Hx of hysterectomy Family History Father No problems noted. Mother Hypertension Social History Alcohol intake: current Alcohol intake frequency: holidays/special occasions only Patient Tobacco Use Status: Former Tobacco user Years Smoked: 30+/- years Current occupational status: retired Current occupation: Right hand dominate Physical Exam Vital Signs: Last Vital Signs Pulse 61 12/16/24 13:30 BP 160/66 H 12/16/24 13:30 Pulse Ox 98 12/16/24 13:30 Oxygen Delivery Method Room Air 12/16/24 13:30 BMI result Body Mass Index 34.7 Const Other: Absence of Cushingoid features. Absence of acromegalic features. Neck exam reveals nl size thyroid about 15 gms. No thyroid nodules palpable. No carotid bruits present. Lungs CTA. Heart S1 S2, Reg R/R. No M/R G. Skin exam reveals absence of vitiligo or acanthosis nigricans. No edema Visual exam of foot performed. No ulcerations or open lesions. No inter digit maceration or fissuring. No onychomycosis, no callouses. Sensation intact to monofilament exam. Vibratory sensation is normal with 128 Hz tuning fork. Results AMB Hemoglobin A1c AMB Hemoglobin A1c 7.2 % Last Edit by MIKE Perez on 12/16/24 13:50 Results Reviewed Results Reviewed: Laboratory Last Values Glucose (Clinic) 152 mg/dL (60-115) H 12/16/24 13:35 Assessment & Plan Assessment & Plan (1) Type 1 diabetes mellitus with hyperglycemia: Code(s): E10.65 - Type 1 diabetes mellitus with hyperglycemia Category: Medical Plan: 74-year-old type 1 diabetic with nephropathy followed by Nephrology and neuropathy with a 2 week glucose average of:166. A1c in the office today is 7.2% down from previous 8.2%. She was asked to add a small amount of walking in the evening The patient had an opportunity to ask questions regarding treatment plan. The patient expressed understanding and agreement with the above treatment plan. The patient is aware they should contact our office by phone for worsening glucose readings or for any low blood sugars which may warrant a change in diabetes medication. Compliance is encouraged with medications and any followup testing/consults which may have been ordered. Orders: Orders AMB Hemoglobin A1c Today E11.65 - Type 2 diabetes mellitus with hyperglycemia, Z79.4 - intermodal truck driver (current) use of insulin Patient Instructions: Sick day management reviewed. Symptoms of DKA (diabetic ketoacidosis): early: frequent urination, dry mouth, fatigue, feeling ill, severe symptoms: ketones in the urine, abdominal pain, nausea, vomiting and weakness. It is important to hydrate with sugar free liquids every 15-30 minutes and bring the sugars down to normal levels. If you are moderate or severe with ketones or unable to bring glucose to less than 200, go to the emergency room. The patient was counseled to achieve a target A1C of 7% (154 avg). Fasting blood sugars should be 90-130 in the morning and less than 180 two hours after meals. Reviewed the relationship between poor diabetic control and the development of complications. Take 15 carb carbohydrate grams to treat a low sugar (3-4 glucose tablets, half a glass of juice or 15 carbohydrate grams of soft candy such as gummie snacks). Recheck your sugar in 15 minutes and re-treat again with 15 carbohydrate grams if low or still with symptoms. Do not drive a car or operate machinery if you do not know what your blood sugar is, if it is low or in excess of 300. Check your feet daily looking for any signs of infection, drainage, redness, ulceration and seek medical attention if this occurs. Break in shoes gradually and do not wear open-toed shoes or walk stocking footed or barefooted. Coding Level of Care Code Est Pt Level 4 (54861) Complex EM visit Add On G2211 Diagnoses Type 1 diabetes mellitus with hyperglycemia E10.65 Time Spent (min) 30 Comment Time spent reviewing labs/provider notes, glucose,sensor reports, face to face, chart doc
[2024-12-16 13:30] VITALS: BP 160/66; PULSE 61; O2SAT 98; BMI 34.7
[2024-12-16 13:40] LABS: Glucose, Whole Blood 152 mg/dL (60-115)
[2024-12-16 13:49] VITALS: BP 164/60
--- OUTSIDE RECORDS SUMMARY | 2024-12-16 14:58 | XMS_ITS | Clinical Summary ---
Author Organization [facility] Address [address] [place] [address] [address] [place] [address] Phone Care Team Providers Care Manager Small Business Name Role Phone OkLeda almeida SARA Primary Care Provider [phone] Allergies Active Allergy Reactions Criticality Noted Date Comments Gabapentin Other (see comments) 03/30/2020 Hexachlorophene 09/15/2023 Other reaction(s): itch/swelling Penicillins 09/15/2023 Other reaction(s): RASH, DYSPNEA Statins 09/15/2023 Other reaction(s): Myalgia, unspecified site Medications ASPIRIN 81 PO Take 81 mg by mouth 7 Active Cholecalciferol (Vitamin D3) 1000 units capsule Take 1,000 Int'l Units by mouth 7 Active Insulin Lispro (HUMALOG IJ) 20 units breakfast 22 for lunch 18 units at dinner 7 Active Multiple Vitamin (MULTIVITAMIN ADULT PO) Take 1 tablet by mouth 0 Active amLODIPine (NORVASC) 10 MG tablet Take 10 mg by mouth 2 Active rosuvastatin (CRESTOR) 5 MG tablet Take 5 mg by mouth 2 Active lisinopril-hydr oCHLOROthiazide (PRINZIDE,ZESTO RETIC) 20-12.5 MG per tablet Take 1 tablet by mouth 1 (one) time each day Active Insulin Degludec (Tresiba) 100 UNIT/ML solution Inject 52 Units under the skin Active amLODIPine-ator vastatin (CADUET) 10-10 MG per tablet Take 1 tablet by mouth 1 (one) time each day Active Active Problems Problem Noted Date Diagnosed Date Stage 3b chronic kidney disease 02/15/2024 Stage 3a chronic kidney disease 09/16/2023 Type 1 diabetes mellitus wit h diabetic chronic kidney disease 09/16/2023 Chronic kidney disease stage 3 due to type 1 diabetes mellitus 08/25/2023 09/15/2023 Hypertensive disorder 11/02/2008 09/15/2023 Resolved Problems Problem Noted Date Diagnosed Date Resolved Date History of malignant neoplasm of vagina 09/15/2023 1 11/16/2022 09/15/2023 Aortic valve stenosis 08/25/2023 09/15/20232022 Hyperlipidemia 08/25/2023 09/15/2023 09/15/2023 Obesity 08/25/2023 09/15/2023 09/15/2023 Patient encounter status 08/25/2023 09/15/202302/2023 Postherpetic neuralgia 08/25/2023 09/15/202309/15 Shoulder pain 08/25/2023 09/15/2023 09/15/2023 Systolic murmur 08/25/2023 09/15/2023 09/15/2023 Type 1 diabetes mellitus 08/25/2023 09/15/202302/2023 Neuropathy due to diabetes mellitus 11/25/2017 09/15/2023 Carpal tunnel syndrome 07/11/2014 09/15/202309/15 Ulnar neuropathy 07/11/2014 09/15/2023 09/15/2023 Immunizations Name Administration Dates Next Due DT 09/11/2005,05/12/2002 Influenza Whole 07/17/2020,07/20/2019 Influenza, Unspecified 08/08/2022,2020,07/23/2018,07/12/2018 ,07/24/2017,08/01/2016,06/22/2015, 0,07/24/2006 MMR 07/09/2016 Moderna SARS-COV-2 01/23/2022,09/18/2021,2 021,02/06/2021 Pneumococcal Conjugate 13-Valent 07/17/2020,01/11 Pneumococcal Polysaccharide 10/12/1996 SARS-CoV-2, Unspecified 08/13/2022 Shingrix 12/26/2020,09/20/2020,09/19/2020 Tdap 07/15/2017 Family History Medical History Relation Comments Coronary artery disease Father Hypertension Mother Stroke Mother Diabetes Sister Relation Status Comments Father Mother Sister Social History Tobacco Use Types Packs/Day Years Used Date Smoking Tobacco: Never Passive Smoke Exposure: Never Smokeless Tobacco: Never Tobacco Cessation:Counseling Given: No Alcohol Use Standard Drinks/Week Comments Yes 0 (1 standard drink = 0.6 oz pur e alcohol) 1-2 times a year Comments Unknown Sex and Gender Information Value Date Recorded Sex Assigned at Not on file Legal Sex Female 3:52 PM EST Gender Identity Not on file Sexual Orientation Not on file Last Filed Vital Signs Vital Sign Reading Time Taken Comments Blood Pressure 130/64 06/09/2024 2:24 PM EDT Pulse 64 06/09/2024 2:24 PM EDT Temperature - - Respiratory Rate - - Oxygen Saturation 98% 06/09/2024 2:24 PM EDT Inhaled Oxygen Concentration - - Weight 86.2 kg (190 lb) 06/09/2024 2:24 PM EDT Height - - Body Mass Index - - Plan of Treatment Upcoming Encounters Date Type Department Care Team (Late st Contact Info) Description 06/15/2025 2:30 PM EDT Office Visit [facility] [address] [place] [address] Donavan Hoyt MD [address] [facility] [address] [place] [address] Health Maintenance Due Date Last Done Comments Breast Cancer Screening 1950 Colorectal Cancer Screening: Annual FOBT 1998 Colorectal Cancer Screening: Colonoscopy 1998 Colorectal Cancer Screening: Sigmoidoscopy 1998 Pneumococcal Vaccine: 65+ Years (3 of 3 - PPSV23 or PCV20) 09/11/2020 07/17/2020, 02/07/2015, 10/12/1996 Diabetes: Hemoglobin A1C 09/14/2023 Diabetes: Ophthalmology Exam 09/14/2023 Diabetes: Pedal Pulse Checked 09/14/2023 Diabetes: Sensory Foot Exam 09/14/2023 Diabetes: Visual Foot Exam 09/14/2023 Influenza Vaccine (#1) 2024 2, 08/14/2021, 07/17/2020, Additional history exists Hepatitis B Vaccine Aged Out No longe r eligible based on patient's age to complete this topic Insurance [address] [place] [address] MEDICARE [facility] [address] [place] [address] MEDIC[facility] Care Teams Manager Small Business Relationship Specialty Start Date End Date Leda Euceda NP [address] [place] [address] PCP - General Nurse Practitioner 08/27/23
== END 2024-12-16 13:56 | disposition home or self-care (01) ==
PROVIDERS: PCP Internal Medicine; Visit Provider Nurse Practitioner Adult Health
DX: E11.65 Type 2 diabetes mellitus with hyperglycemia (principal); Z79.4 Long term (current) use of insulin; E10.65 Type 1 diabetes mellitus with hyperglycemia
CPT/HCPCS: 99214; G2211

== ENCOUNTER → 2024-12-16 13:22 | Outpatient (BNVA) | payer MEDICARE, SELFPAY | PROVIDERS: PCP Internal Medicine; Visit Provider Nurse Practitioner Adult Health | DX: E10.65 Type 1 diabetes mellitus with hyperglycemia (principal); Z79.4 Long term (current) use of insulin | CPT/HCPCS: 82947; 83036; 99212 ==

== ENCOUNTER 2024-12-22 10:17 | Outpatient (AMB) | payer MEDICARE, SELFPAY ==
[2024-12-22 10:33] VITALS: BMI 34.8
--- NOTE | 2024-12-22 10:33 | A.OFFVIS_ITS ---
VS Expanded 12/22/24 10:33 Height 5 ft 2 in Weight 190 lb 0.615 oz BMI 34.8 Intake Visit Reasons: t2dm Allergies Penicillins [PCN] Allergy (Unknown, Verified 12/16/24 13:32) THROAT SWELLING\ FISOHEX Allergy (Unknown, Uncoded 12/16/24 13:32) RASH Phisohex Allergy (Unknown, Uncoded 12/16/24 13:32) Unknown Nutrition Presentation Details: Pt presents for MNT f/u for t2DM Pt reports having 3 meals/day Breakfast sand: Egg /ham Sand on whole wheat bread and and 1 tbsp ryze coff with milk no sugar L: salad with sand or with burger D: chicken and fries , water or diet soda snacks 2-3 /day , crackers, fruit, chips, yogurt walking counting steps, 4000 steps average per day BS Monitoring Most Recent Diabetes Results: No Data to Display [facility] Medical History Uncontrolled type 2 diabetes mellitus with hyperglycemia, with long-term current use of insulin Transaminitis Heart murmur Vitamin D deficiency HLD (hyperlipidemia) Diabetic retinopathy Non-toxic multinodular goiter Dyslipidemia Hypertension Obesity (BMI 30-39.9) Diabetic polyneuropathy associated with type 1 diabetes mellitus Surgical History H/O colonoscopy H/O laser iridotomy History of carpal tunnel release History of ear surgery Hx of hysterectomy Family History Father No problems noted. Mother Hypertension Social History Alcohol intake: current Alcohol intake frequency: holidays/special occasions only Patient Tobacco Use Status: Former Tobacco user Years Smoked: 30+/- years Current occupational status: retired Current occupation: Right hand dominate Assessment & Plan Assessment & Plan (1) Type 1 diabetes mellitus with hyperglycemia: Code(s): E10.65 - Type 1 diabetes mellitus with hyperglycemia Category: Medical Plan: Review reducing fried foods and choosing fiber rich foods EsT Kcal NEEDS as per 25 /kg bw: 2100 -2200 USED WT : 86 kg est protein needs as per 0.8-1.0 g/kg bw: 86 g/d est fluid needs as per 25 ml/kg bw: 2600ml/d Na < 2000 mg/d Educate patient on: (R= Reviewed, V = verbalizes understanding N/R= Needs review N/A= not applicable) * Food sources of carbohydrates and serving adequate serving sizes : R V * Difference between complex carbohydrates and simple carbohydrates, role of fiber: R V * Differences between fats (MUFA/PUFA/saturated fats, trans fats) and food sources of various fats: R V * Food sources of sodium and salt and healthy modifications for heart health and kidney health: R V * Vitamins and minerals: R V * How to interpret food labels: R V * Healthy Plate method concept: R V * Physical activity: benefits and precaution: R V Patient Instructions: Choose high fiber rich foods : have sweet potato baked vs fried potatoes at supper 2 times/week Keep hydrated by having water with meals/snacks see list of fiber rich food options Continue working on reducing on fried foods and choosing fiber rich foods Coding Level of Care Code Nutr Indiv Subseq (55132) Diagnoses Type 1 diabetes mellitus with hyperglycemia E10.65 Time Spent (min) 25
--- OUTSIDE RECORDS SUMMARY | 2024-12-22 12:44 | XMS_ITS | Clinical Summary ---
Author Organization [facility] Address [address] [place] [address] [address] [place] [address] Phone Care Team Providers Care Pull Over Name Role Phone OkLeda almeida SARA Primary Care Provider [phone] Allergies Active Allergy Reactions Criticality Noted Date [...] Visit [facility] [address] [place] [address] Donavan Hoyt MD [address] [facility] [address] [place] [address] Health Maintenance Due Date Last Done Comments [...] to complete this topic Insurance [address] [place] [address] MEDICARE [facility] [address] [place] [address] MEDICARE [facility] Care Teams Pull Over Relationship Specialty Start Date End Date Leda Euceda NP [address] [place] [address] PCP - General Nurse Practitioner 08/27/23
== END 2024-12-22 10:54 | disposition home or self-care (01) ==
LOC: HO.ENCR 10:18
PROVIDERS: PCP Internal Medicine; Visit Provider Dietitian, Registered
DX: E10.65 Type 1 diabetes mellitus with hyperglycemia (principal)

== ENCOUNTER → 2024-12-22 10:17 | Outpatient (BNVA) | payer MEDICARE, SELFPAY | PROVIDERS: PCP Internal Medicine; Visit Provider Dietitian, Registered | DX: E10.65 Type 1 diabetes mellitus with hyperglycemia (principal); Z71.3 Dietary counseling and surveillance | CPT/HCPCS: 97803 ==

== ENCOUNTER 2025-01-25 09:34 | Outpatient (AMB) | payer MEDICARE, SELFPAY ==
--- NOTE | 2025-01-25 09:39 | MHC.OFFVIS ---
Vital Signs 01/25/25 09:41 Height 5 ft 2 in Weight 186 lb 1.122 oz BMI 34.0 BP 140/62 H Blood Pressure Location Rt brachial Position Sitting Pulse 89 Pulse Source Pulse Oximeter Intake Visit Reasons: 6 mth f/up Intake Note: 6 mth f/up Architectural Drafter Required: No Accompanied by: Self / Same As Patient Allergies Penicillins [PCN] Allergy (Unknown, Verified 12/16/24 13:32) THROAT SWELLING\ FISOHEX Allergy (Unknown, Uncoded 12/16/24 13:32) RASH Phisohex Allergy (Unknown, Uncoded 12/16/24 13:32) Unknown Medication List - Last Reconciled 01/25/25 by Wero Fields MD amlodipine 10 mg PO DAILY 90 days aspirin (Adult Aspirin Regimen) 81 mg PO DAILY blood sugar diagnostic (Contour Next Test Strips) 2 times a day cholecalciferol (vitamin D3) (Vitamin D3) 25 mcg PO DAILY Dexcom G7 Sensor (blood-glucose sensor) As directed every 14 days NS [Diabetic shoes with inserts As directed] Humalog KwikPen Insulin (insulin lispro) 20 units (0.2 mL) subcut TID NS lisinopril-hydrochlorothiazide 20-12.5 mg 2 tabs PO DAILY 90 days multivitamin 1 tab PO DAILY pen needle, diabetic (BD Ultra-Fine Micro Pen Needle) USE FOUR TIMES DAILY rosuvastatin 5 mg PO DAILY 90 days Tresiba FlexTouch U-100 (insulin degludec) 55 units (0.55 mL) subcut DAILY 90 days NS HPI Comments Details: Pleasant 74-year-old female here for follow-up She has history of diabetes for the last 32 years and has been on insulin. She has retinopathy and peripheral neuropathy. She was found to have a murmur during her examination with endocrinology and was referred to us. She is a retired certified pharmacy technician. She is saying over the last year since prison she has not been very active. She also had right leg surgery and gets pain in the right hip which limits her. With her daily activities she has no symptoms in particular no shortness of breath, chest discomfort, dizziness or syncope. Blood pressure control is good. No other concerns right now. echocardiography has shown jvve-as-yhvepqih aortic valve stenosis. By exam she had clear 2nd heart sound and aortic stenosis did not appear severe. 07/27/2023: She returns for follow-up. She is denying any symptoms. In particular no chest pain or shortness of breath. No dizziness. Has vgge-go-lngbqdfx aortic valve stenosis as of July 2022 echocardiography. Blood pressure control is good. 07/17/24: She is here for follow-up. No symptoms on follow-up. Blood pressure is well controlled. Echocardiography from June is showing [id number] aortic valve stenosis. 01/25/2025: Manda is here for follow-up. She has ieae-iq-dhwweeki aortic valve stenosis and hypertension. Denying any new exertional symptoms. Blood pressure is elevated. I checked it manually and it was 140/60. [facility] Medical History Uncontrolled type 2 diabetes mellitus with hyperglycemia, with long-term current use of insulin Transaminitis Heart murmur Vitamin D deficiency HLD (hyperlipidemia) Diabetic retinopathy Non-toxic multinodular goiter Dyslipidemia Hypertension Obesity (BMI 30-39.9) Diabetic polyneuropathy associated with type 1 diabetes mellitus Surgical History H/O colonoscopy H/O laser iridotomy History of carpal tunnel release History of ear surgery Hx of hysterectomy Family History Father No problems noted. Mother Hypertension Social History Alcohol intake: current Alcohol intake frequency: holidays/special occasions only Patient Tobacco Use Status: Former Tobacco user Years Smoked: 30+/- years Current occupational status: retired Current occupation: Right hand dominate Review of Systems Const Denies chills, Denies fatigue, Denies fever(s), Denies frequent falls, Denies weakness, Denies weight gain and Denies weight loss ENT Denies dizziness Card Denies chest pain, Denies leg edema, Denies lightheadedness, Denies palpitations, Denies dyspnea and Denies dyspnea on exertion Resp Denies cough, Denies dyspnea and Denies dyspnea on exertion GI Denies hematochezia Musc Denies abnormal gait, Denies muscle weakness, Denies numbness, Denies radiating pain into limb and Denies tingling Neuro Denies abnormal gait, Denies dizziness, Denies frequent falls, Denies numbness, Denies tingling and Denies weakness Endo Denies fatigue and Denies palpitations Physical Exam Vital Signs: Last Vital Signs BP 140/62 H 01/25/25 09:41 BMI result Body Mass Index 34.0 GENERAL APPEARANCE: in no acute distress, pleasant. NECK: no carotid bruit, no jugular venous distention. SKIN: no suspicious lesions, warm and dry. HEART: Ejection systolic murmur aortic area with preserved 2nd heart sound. LUNGS: clear to auscultation bilaterally. ABDOMEN: soft, nontender. EXTREMITIES: no edema. PERIPHERAL PULSES: equal. NEUROLOGIC: No gross deficits, AAO X 3 Assessment & Plan Assessment & Plan (1) Hypertension: Code(s): I10 - Essential (primary) hypertension Category: Medical (2) Aortic stenosis: Code(s): I35.0 - Nonrheumatic aortic (valve) stenosis Category: Medical Plan Pleasant 74 year female with qwxv-km-wklwybmy aortic valve stenosis and hypertension. Recent echocardiography in June 2024 showed qyio-ao-hrbwusod aortic valve stenosis. Clinically she does not have any symptoms. We will monitor the valve for now and repeat echocardiography in 1-2 years. Blood pressure is elevated. I have advised her to take the lisinopril/hydrochlorothiazide combination pill twice a day. She will continue the amlodipine 10 mg daily. I have advised her that if she gets dizzy or lightheaded she should reach out to us. Follow up with us in 6 months. Thank you for allowing me to participate in the care of your patient. Please feel free to contact me if you have any questions. Medications: Changed From lisinopril-hydrochlorothiazide 20-12.5 mg 2 tabs PO DAILY 90 days 180 tabs 1RF I10 - Essential (primary) hypertension To lisinopril-hydrochlorothiazide 20-12.5 mg 2 tabs PO BID 90 days 360 tabs 1RF I10 - Essential (primary) hypertension Coding Level of Care Code Est Pt Level 4 (85634) Diagnoses Hypertension I10 Aortic stenosis I35.0
[2025-01-25 09:41] VITALS: BP 140/62; PULSE 89; BMI 34.0
--- OUTSIDE RECORDS SUMMARY | 2025-01-25 10:37 | XMS_ITS | Clinical Summary ---
Author Organization [facility] Address [address] [place] [address] [address] [place] [address] Phone Care Team Providers Care Inspector Plumbing Name Role Phone OkLeda almeida SARA Primary Care Provider Allergies Active Allergy Reactions Criticality Noted Date [...] 09/15/202309/15 Ulnar neuropathy 07/11/2014 09/15/2023 09/15/2023 Immunizations Immunization Administration Dates Next Due DT 09/11/2005,05/12/2002 Influenza [...] Visit [facility] [address] [place] [address] Donavan Hoyt MD [address] [facility] [address] [place] [address] Health Maintenance Due Date Last Done Comments Breast Cancer Screening 1950 Colorectal Cancer Screening: Annual FOBT 1998 Colorectal Cancer Screening: Colonoscopy 1998 Colorectal Cancer Screening: Sigmoidoscopy 1998 Pneumococcal Vaccine: 50+ Years (3 of 3 - PPSV23, PCV20 or PCV21) 09/11/2020 07/17/2020, 02/07/2015, 10/12/1996 Diabetes: Hemoglobin A1C 09/14/2023 Diabetes: Ophthalmology Exam 09/14/2023 Diabetes: Pedal Pulse Checked 09/14/2023 Diabetes: Sensory Foot Exam 09/14/2023 Diabetes: Visual Foot Exam 09/14/2023 Influenza Vaccine (Season Ended) 2025 08/08/2022, 08/14/2021, 07/17/2020, Additional history exists Hepatitis B Vaccine Aged Out No longe r eligible based on patient's age to complete this topic Insurance [address] [place] [address] Medicare [facility] [address] [place] [address] Medicare [facility] Care Teams Inspector Plumbing Relationship Specialty Start Date End Date Leda Euceda NP [address] [place] [address] PCP - General Nurse Practitioner 08/27/23
== END 2025-01-25 09:54 | disposition home or self-care (01) ==
LOC: HO.HCS 09:34
PROVIDERS: PCP Internal Medicine; Visit Provider Internal Medicine Cardiovascular Disease
DX: I10 Essential (primary) hypertension (principal); I35.0 Nonrheumatic aortic (valve) stenosis
CPT/HCPCS: 99214

== ENCOUNTER → 2025-01-25 09:34 | Outpatient (BNVA) | payer MEDICARE, SELFPAY | PROVIDERS: PCP Internal Medicine; Visit Provider Internal Medicine Cardiovascular Disease | DX: I35.0 Nonrheumatic aortic (valve) stenosis (principal); I10 Essential (primary) hypertension; E11.40 Type 2 diabetes mellitus with diabetic neuropathy, unspecified; E11.319 Type 2 diabetes mellitus with unspecified diabetic retinopathy without macular edema; Z79.4 Long term (current) use of insulin | CPT/HCPCS: 99212 ==

== ENCOUNTER → 2025-02-10 10:15 | Outpatient (BNV) | payer MEDICARE, SELFPAY | PROVIDERS: PCP Internal Medicine; Visit Provider Internal Medicine | DX: Z12.31 Encounter for screening mammogram for malignant neoplasm of breast (principal) | CPT/HCPCS: 77063; 77067 ==

== ENCOUNTER 2025-02-10 10:29 | Outpatient (REF) | payer MEDICARE, SELFPAY ==
--- OUTSIDE RECORDS SUMMARY | 2025-02-10 11:33 | XMS_ITS | Clinical Summary ---
Author Organization [facility] Address [address] [place] [address] [address] [place] [address] Phone Care Team Providers Care Back Joiner Name Role Phone OkLeda almeida SARA Primary Care Provider [phone] Allergies Active Allergy Reactions Criticality Noted Date [...] Visit [facility] [address] [place] [address] Donavan Hoyt MD [address] [facility] [address] [place] [address] Health Maintenance Due Date Last Done Comments [...] to complete this topic Insurance [address] [place] [address] Medicare [facility] [address] [place] [address] Medicare [facility] Care Teams Back Joiner Relationship Specialty Start Date End Date Leda Euceda NP [address] [place] [address] PCP - General Nurse Practitioner 08/27/23
== END 2025-02-10 10:30 | disposition home or self-care (01) ==
LOC: HO.MAMMO 10:29
PROVIDERS: PCP Internal Medicine; Visit Provider Internal Medicine
DX: Z12.31 Encounter for screening mammogram for malignant neoplasm of breast (principal)
CPT/HCPCS: 77063; 77067

== ENCOUNTER → 2025-03-14 09:22 | Outpatient (BNVA) | payer MEDICARE, SELFPAY | PROVIDERS: PCP Internal Medicine; Visit Provider Dietitian, Registered ==

== ENCOUNTER 2025-03-22 14:21 | Outpatient (AMB) | payer MEDICARE, SELFPAY ==
--- NOTE | 2025-03-22 13:35 | A.OFFVIS_ITS ---
Vital Signs 03/22/25 14:29 03/22/25 14:47 Height 5 ft 2 in Weight 191 lb 12.835 oz BMI 35.1 BP 138/78 136/76 Blood Pressure Location Rt brachial Rt brachial Position Sitting Sitting Pulse 67 Pulse Source Pulse Oximeter Pulse Oximetry (%) 98 Oxygen Delivery Method Room Air Intake Visit Reasons: T2DM Intake Note: Patient presents today for a follow-up on Type 2 Diabetes Mellitus: Patient in insulin pump Last Diabetic eye exam was on: 05/12/2024 Last Podiatry exam was on: 09/12/2024 Most recent HbA1c: 8.1%, 03/17/2025 Random Glucose- 173 mg/dL, Today Road Consultant Required: No Accompanied by: Self / Same As Patient Allergies Penicillins [PCN] Allergy (Unknown, Verified 03/22/25 14:27) THROAT SWELLING\ FISOHEX Allergy (Unknown, Uncoded 03/22/25 14:27) RASH Phisohex Allergy (Unknown, Uncoded 03/22/25 14:27) Unknown HPI Comments Details: 75 year old female with past medical history of insulin dependent diabetes presenting for follow up. She was last seen 12/16/2024 with the an A1c of 7.2%. Hemoglobin A1c 03/22/2025 %. Diagnosed with T1DM at the age of 39 when she was having frequent infections. Cpeptide 0.40 Current regimen: Tresiba 55 units Humalog 20 units t.i.d. dexcom sensor 3 average glucose: 174 14 day continuous glucose sensor report reviewed Glucose Management indicator 7.5 % Time CGM active 97 % TIme in ranges: 14 % very high (above 250) 33 % high (181-250) 51 % in range (70-180] 2 % low (69-55) Less than 1 % very low (below 54) Interpretation of CGMS readings elevated after meals particularly with supper Family history of T2DM in both Grandparents, her Sister and 2 children. Denies retinopathy eye exam UTD Denies neuropathy, denies: Numbness, tingling, pain or cramping in the lower extremity sees podiatry Has nephropathy, on lisinopril 20 mg PO daily. alb/cr +. Sees nephrology eGFR 38 05/2024 Positive Family history of T2DM in both Grandparents, her Sister and 2 children. Has stable retinopathy eye exam has appt scheduled last seen May Has neuropathy: Has tingling in the feet occasional pain sees podiatry very 3 months Has nephropathy, on lisinopril 20 mg PO daily. alb/cr +. Sees nephrology eGFR 38 Dr. Hoyt sees every 3 moths Has HLD, on Rosuvastatin 5 mg PO daily. Denies history of CAD. Has murmur seen annually Has had diabetes education. Has 2 sons in the area, 1 daughter in [place] and 1 . Diet/Carb counting: trys to balance eats alot of veg trying to cut back on rice, elminated pasta exercise: walks some Thyroid US: 09/03/2021 Right Thyroid Lobe: 4.4 x 2.1 x 1.8 cm, volume 8.6 mL. Previously 4.2 x 1.7 x 1.3 cm, volume 4.7 mL. Parenchyma: The gland echotexture is homogeneous. Thyroid vascularity is normal. Left Thyroid Lobe: 3.5 x 1.8 x 1.4 cm, volume 4.5 mL. Previously 4.0 x 1.8 x 1.2 cm, volume 4.6 mL. Parenchyma: The gland echotexture is homogeneous. Thyroid vascularity is normal. Isthmus: 0.42 cm in maximum AP dimension. Previously 0.46 cm. Estimated total number of nodules greater than or equal to 1 cm: 0. Soil Scientist nodules are described as follows: eGFR 38 c microalbumin <5.0 Has HLD, on Rosuvastatin 5 mg PO daily. Denies history of CAD. Denies chest pain, dyspnea or symptoms of claudication Has had diabetes education. Diet/Carb counting: Counts carbs with every meal. [facility] Medical History Uncontrolled type 2 diabetes mellitus with hyperglycemia, with long-term current use of insulin Transaminitis Heart murmur Vitamin D deficiency HLD (hyperlipidemia) Diabetic retinopathy Non-toxic multinodular goiter Dyslipidemia Hypertension Obesity (BMI 30-39.9) Diabetic polyneuropathy associated with type 1 diabetes mellitus Surgical History H/O colonoscopy H/O laser iridotomy History of carpal tunnel release History of ear surgery Hx of hysterectomy Family History Father No problems noted. Mother Hypertension Social History Alcohol intake: current Alcohol intake frequency: holidays/special occasions only Patient Tobacco Use Status: Former Tobacco user Years Smoked: 30+/- years Current occupational status: retired Current occupation: Right hand dominate Physical Exam Vital Signs: Last Vital Signs Pulse 67 03/22/25 14:29 BP 136/76 03/22/25 14:47 Pulse Ox 98 03/22/25 14:29 Oxygen Delivery Method Room Air 03/22/25 14:29 BMI result Body Mass Index 35.1 Const Other: Absence of Cushingoid features. Absence of acromegalic features. Neck exam reveals nl size thyroid about 15 gms. No thyroid nodules palpable. Heart S1 S2, Reg R/R. No M/R G. Skin exam reveals absence of vitiligo or acanthosis nigricans. No edema Visual exam of foot performed. No ulcerations or open lesions. No inter digit maceration or fissuring. No onychomycosis, no callouses. Sensation intact to monofilament exam. Vibratory sensation is normal with 128 Hz tuning fork. Pulses positive distally Results AMB Hemoglobin A1c AMB Hemoglobin A1c 8.1 % Last Edit by MIKE Perez on 03/22/25 14:42 Results Reviewed Results Reviewed: Laboratory Last Values Glucose (Clinic) 173 mg/dL (60-115) H 03/22/25 14:33 Hgb A1c (Clinic) 8.1 % (4.0-6.0) H 03/22/25 14:38 Assessment & Plan Assessment & Plan (1) Type 1 diabetes mellitus with hyperglycemia: Code(s): E10.65 - Type 1 diabetes mellitus with hyperglycemia Category: Medical Orders: Orders AMB Hemoglobin A1c Today E11.65 - Type 2 diabetes mellitus with hyperglycemia, Z79.4 - intermediate project manager (current) use of insulin Lipid Panel Today E10.65 - Type 1 diabetes mellitus with hyperglycemia Creatinine Urine Today E10.65 - Type 1 diabetes mellitus with hyperglycemia Comprehensive Met. Panel Today E10.65 - Type 1 diabetes mellitus with hyperglycemia Microalbumin, Random (w Creat) Today E10.65 - Type 1 diabetes mellitus with hyperglycemia Coding Diagnoses Type 1 diabetes mellitus with hyperglycemia E10.65
[2025-03-22 14:29] VITALS: BP 138/78; PULSE 67; O2SAT 98; BMI 35.1
[2025-03-22 14:38] LABS: Glucose, Whole Blood 173 mg/dL (60-115)
[2025-03-22 14:47] VITALS: BP 136/76
--- OUTSIDE RECORDS SUMMARY | 2025-03-22 16:25 | XMS_ITS | Clinical Summary ---
Author Organization [facility] Address [address] [place] [address] [address] [place] [address] Phone Care Team Providers Care Information Assistant Name Role Phone OkLeda almeida SARA Primary Care Provider [phone] Allergies Active Allergy Reactions Criticality Noted Date [...] Visit [facility] [address] [place] [phone] Donavan Hoyt MD [address] [facility] [address] [place] [address] Health Maintenance Due Date Last Done Comments Pneumococcal Vaccine: 50+ Years (3 of 3 - PCV20 or PCV21) 09/11/2020 07/17/2020, 02/07/2015, 10/12/1996 Diabetes: Hemoglobin A1C 09/14/2023 Diabetes: Ophthalmology Exam 09/14/2023 Diabetes: Pedal Pulse Checked 09/14/2023 Diabetes: Sensory Foot Exam 09/14/2023 Diabetes: Visual Foot Exam 09/14/2023 Influenza Vaccine (Season Ended) 2025 08/08/2022, 08/14/2021, 07/17/2020, Additional history exists Hepatitis B Vaccine Aged Out No longe r eligible based on patient's age to complete this topic Insurance [address] [place] [id number] Medicare [facility] [address] [place] [id number] Medicare [facility] Care Teams Information Assistant Relationship Specialty Start Date End Date Leda Euceda NP [address] [place] [id number] PCP - General Nurse Practitioner 08/27/23
== END 2025-03-22 14:53 | disposition home or self-care (01) ==
PROVIDERS: PCP Internal Medicine; Visit Provider Nurse Practitioner Adult Health
DX: E11.65 Type 2 diabetes mellitus with hyperglycemia (principal); Z79.4 Long term (current) use of insulin

== ENCOUNTER → 2025-03-22 14:21 | Outpatient (BNVA) | payer MEDICARE, SELFPAY | PROVIDERS: PCP Internal Medicine; Visit Provider Nurse Practitioner Adult Health | DX: E10.65 Type 1 diabetes mellitus with hyperglycemia (principal); Z79.4 Long term (current) use of insulin | CPT/HCPCS: 82947; 83036; 99212 ==

== ENCOUNTER 2025-05-15 09:23 | Outpatient (REF) | payer MEDICARE, SELFPAY ==
--- OUTSIDE RECORDS SUMMARY | 2025-05-15 09:54 | XMS_ITS | Clinical Summary ---
Author Organization [facility] Address [address] [place] [address] [address] [place] [address] Phone Care Team Providers Care Sales Support Assistant Name Role Phone OkLdea almeida SARA Primary Care Provider [phone] Allergies Active Allergy Reactions Criticality Noted Date [...] Visit [facility] [address] [place] [address] Donavan Hoyt MD [address] [facility] [address] [place] [address] Health Maintenance Due Date Last Done Comments Pneumococcal Vaccine: 50+ Years (3 of 3 - PCV20 or PCV21) 09/11/2020 07/17/2020, 02/07/2015, 10/12/1996 Diabetes: Hemoglobin A1C 09/14/2023 Diabetes: Ophthalmology Exam 09/14/2023 Diabetes: Pedal Pulse Checked 09/14/2023 Diabetes: Sensory Foot Exam 09/14/2023 Diabetes: Visual Foot Exam 09/14/2023 Influenza Vaccine (#1) 2025 2, 08/14/2021, 07/17/2020, Additional history exists Hepatitis B Vaccine Aged Out No longe r eligible based on patient's age to complete this topic Insurance [address] [place] [id number] Medicare [facility] [address] [place] [id number] Medicare [facility] Care Teams Sales Support Assistant Relationship Specialty Start Date End Date Leda Euceda NP [address] [place] [id number] PCP - General Nurse Practitioner 08/27/23
[2025-05-15 10:55] LABS: Alanine Aminotransferase 17 U/L (0-31); Albumin Level 4.0 g/dL (3.5-5.0); Alkaline Phosphatase 78 U/L (39-117); Anion Gap 11 (12-20); Aspartate Amino Transferase 23 U/L (5-31); Blood Urea Nitrogen 26 mg/dL (9-16); Calcium 9.9 mg/dL (8.4-10.2); Carbon Dioxide 26 mmol/L (22-29); Chloride 103 mmol/L (96-108); Cholesterol 146 mg/dL (<200); Estimated Glomerular Filt Rate 40; HDL Cholesterol 45 mg/dL (>40); Potassium 4.4 mmol/L (3.3-5.1); Sodium 136 mmol/L (135-145); Total Protein 7.6 g/dL (6.5-8.0); Triglycerides 96 mg/dL (<150)
== END 2025-05-15 09:24 | disposition home or self-care (01) ==
LOC: HO.LAB 09:23
PROVIDERS: Visit Provider Nurse Practitioner Adult Health
DX: E10.65 Type 1 diabetes mellitus with hyperglycemia (principal)
CPT/HCPCS: 36415; 80053; 80061; 82043; 82570

== ENCOUNTER 2025-05-17 13:55 | Outpatient (AMB) | payer MEDICARE, SELFPAY ==
--- NOTE | 2025-05-17 14:01 | A.OFFVIS_ITS ---
Vital Signs 05/17/25 14:11 Height 5 ft 2 in Weight 190 lb 7.67 oz BMI 34.8 BP 132/54 L Blood Pressure Location Lt brachial Position Sitting Pulse 65 Pulse Source Pulse Oximeter Pulse Oximetry (%) 96 Oxygen Delivery Method Room Air Intake Visit Reasons: T2DM Intake Note: Patient present today to follow up on Diabetes Mellitus. Last Diabetic Eye exam: 05/12/2024, next appointment is on August 23, 2025 [facility]. Last Podiatry Visit: 09/12/2024 Random Glucose: 168 mg/dl HgA1C: 8.1% 03/22/2025 Ssis Etl Developer Required: No Accompanied by: Self / Same As Patient Allergies Penicillins (PCN) Allergy (Unknown, Verified 05/17/25 14:04) THROAT SWELLING\ FISOHEX Allergy (Unknown, Uncoded 05/17/25 14:04) RASH Phisohex Allergy (Unknown, Uncoded 05/17/25 14:04) Unknown Medication List - Last Reconciled 05/17/25 by Santi Martino MD amlodipine 10 mg PO DAILY 90 days aspirin (Adult Aspirin Regimen) 81 mg PO DAILY blood sugar diagnostic (Contour Next Test Strips) 2 times a day cholecalciferol (vitamin D3) (Vitamin D3) 25 mcg PO DAILY Dexcom G7 Sensor (blood-glucose sensor) As directed every 14 days NS [Diabetic shoes with inserts As directed] Humalog KwikPen Insulin (insulin lispro) 20-24 units tid before meals subcutaneously 3 times a day; 90 days MDD 72 units NS lisinopril-hydrochlorothiazide 20-12.5 mg 2 tabs PO BID 90 days multivitamin 1 tab PO DAILY pen needle, diabetic (BD Ultra-Fine Micro Pen Needle) USE FOUR TIMES DAILY rosuvastatin 5 mg PO DAILY 90 days Tresiba FlexTouch U-100 (insulin degludec) 58 units (0.58 mL) subcut DAILY 90 days NS HPI Comments Details: 75 year old female with type 2 diabetes presenting for follow up. She was last seen 03/22/2025 by Salome Villanueva NP Diagnosed with T1DM at the age of 39 when she was having frequent infections. She has had negative antibodies in the past 12/2021 Cpeptide 0.40 Current regimen: Tresiba 58 units was out of Tresiba for 1 wk Humalog 20 units BB, 22 units pre -lunch and 24 units pre-dinner dexcom sensor 3 average glucose: 185 14 day continuous glucose sensor report reviewed Glucose Management indicator 8.1 % Time CGM active 95 % TIme in ranges: 23 % very high (above 250) 43 % high (181-250) 34 % in range (70-180] 0 % low (69-55) 0 very low (below 54) Interpretation of CGMS readings shows glucose persistently high throughout the day without any post-prandial spikes Family history of T2DM in both Grandparents, her Sister and 2 children. No hypoglycemia Positive Family history of T2DM in both Grandparents, her Sister and 2 children. Has stable retinopathy eye exam has appt in 08/2024 Has neuropathy: Has tingling in the feet occasional pain sees podiatry very 3 months Has nephropathy, on lisinopril 20 mg PO daily. alb/cr +. Sees nephrology eGFR 38 05/2024 Dr. Hoyt sees every 3 moths Has HLD, on Rosuvastatin 5 mg PO daily. last ldl 87 Denies history of CAD. Has murmur seen annually Denies symptoms of chest pain, dyspnea or claudication. Has had diabetes education. Has 2 sons in the area, 1 daughter in [place] and 1 . Diet/Carb counting: trys to balance eats alot of veg trying to cut back on rice, elminated pasta exercise: walks some Thyroid US: 09/03/2021 Right Thyroid Lobe: 4.4 x 2.1 x 1.8 cm, volume 8.6 mL. Previously 4.2 x 1.7 x 1.3 cm, volume 4.7 mL. Parenchyma: The gland echotexture is homogeneous. Thyroid vascularity is normal. Left Thyroid Lobe: 3.5 x 1.8 x 1.4 cm, volume 4.5 mL. Previously 4.0 x 1.8 x 1.2 cm, volume 4.6 mL. Parenchyma: The gland echotexture is homogeneous. Thyroid vascularity is normal. Isthmus: 0.42 cm in maximum AP dimension. Previously 0.46 cm. Estimated total number of nodules greater than or equal to 1 cm: 0. Has had diabetes education. Diet/Carb counting: Counts carbs with every meal. [facility] Medical History Uncontrolled type 2 diabetes mellitus with hyperglycemia, with long-term current use of insulin Transaminitis Heart murmur Vitamin D deficiency HLD (hyperlipidemia) Diabetic retinopathy Non-toxic multinodular goiter Dyslipidemia Hypertension Obesity (BMI 30-39.9) Diabetic polyneuropathy associated with type 1 diabetes mellitus Surgical History H/O colonoscopy H/O laser iridotomy History of carpal tunnel release History of ear surgery Hx of hysterectomy Family History Father No problems noted. Mother Hypertension Social History Alcohol intake: current Alcohol intake frequency: holidays/special occasions only Patient Tobacco Use Status: Former Tobacco user Years Smoked: 30+/- years Current occupational status: retired Current occupation: Right hand dominate Physical Exam Const Other: Absence of Cushingoid features. Absence of acromegalic features. Neck exam reveals nl size thyroid about 15 gms. No thyroid nodules palpable. Heart S1 S2, Reg R/R. No M/R G. Skin exam reveals absence of vitiligo or acanthosis nigricans. No edema Visual exam of foot performed. No ulcerations or open lesions. No inter digit maceration or fissuring. No onychomycosis, no callouses. Sensation intact to monofilament exam. Vibratory sensation is normal with 128 Hz tuning fork. Pulses positive distally Assessment & Plan Assessment & Plan (1) Type 1 diabetes mellitus with hyperglycemia: Code(s): E10.65 - Type 1 diabetes mellitus with hyperglycemia Category: Medical Plan: This 75-year-old black female with history of type 2 diabetes being managed basal-bolus insulin with poor glycemic control and no known microvascular or macrovascular complications. GAD65 antibodies were negative and patient has a positive family history for type 2 diabetes make a likely she has type 2 diabetes Plan is to talk to pt about starting GLP 1 agonist such Monujaro 2.5 mg Qwkly Patient was advised to monitor closely for hypoglycemia and to contact us for insulin reduction. I went over the side effects of Mounjaro including but not limited to nausea, vomiting and rare risk of pancreatitis. Will have patient follow up with primary care diabetes teamin 3 wks Medications: New glucagon 3 mg/actuation (Baqsimi) 3 mg intranasal ONCE 2 ea 4RF tirzepatide (Mounjaro) for 4 weeks 2.5 mg (0.5 mL) subcut QWEEK 2 mL 4RF Coding Level of Care Code Est Pt Level 4 (56248) Complex EM visit Add On G2211 Diagnoses Type 1 diabetes mellitus with hyperglycemia E10.65
[2025-05-17 14:11] VITALS: BP 132/54; PULSE 65; O2SAT 96; BMI 34.8
[2025-05-17 14:18] LABS: Glucose, Whole Blood 168 mg/dL (60-115)
--- OUTSIDE RECORDS SUMMARY | 2025-05-17 14:25 | XMS_ITS | Clinical Summary ---
Author Organization [facility] Address [address] [place] [address] [address] [place] [address] Phone Care Team Providers Care Exterminator Termite Name Role Phone OkLeda almeida SARA Primary Care Provider [phone] Allergies Active Allergy Reactions Criticality Noted Date [...] [facility] [address] [place] [address] Donavan Hoyt MD [address] [facility] [address] [place] [address] Health Maintenance Due Date Last Done Comments [...] age to complete this topic Insurance [address] [place] [id number] Medicare [facility] [address] [place] [id number] Medicare [facility] Care Teams Exterminator Termite Relationship Specialty Start Date End Date Leda Euceda NP [address] [place] [id number] PCP - General Nurse Practitioner 08/27/23
== END 2025-05-17 14:33 | disposition home or self-care (01) ==
LOC: HO.ENCR 13:56
PROVIDERS: PCP Internal Medicine; Visit Provider Internal Medicine Endocrinology, Diabetes & Metabolism
DX: E10.65 Type 1 diabetes mellitus with hyperglycemia (principal)
CPT/HCPCS: 99214; G2211

== ENCOUNTER → 2025-05-17 13:55 | Outpatient (BNVA) | payer MEDICARE, SELFPAY | PROVIDERS: PCP Internal Medicine; Visit Provider Internal Medicine Endocrinology, Diabetes & Metabolism | DX: E10.65 Type 1 diabetes mellitus with hyperglycemia (principal); Z79.4 Long term (current) use of insulin | CPT/HCPCS: 82947; 99212 ==

== ENCOUNTER 2025-05-22 10:41 | Outpatient (AMB) | payer MEDICARE, SELFPAY ==
--- OUTSIDE RECORDS SUMMARY | 2025-05-22 11:25 | XMS_ITS | Clinical Summary ---
Author Organization [facility] Address [address] [place] [address] [address] [place] [address] Phone Care Team Providers Care Reproduction Production Manager Name Role Phone OkLeda almeida SARA Primary [...] Visit [facility] [address] [place] [address] Donavan Hoyt MD [address] [facility] [address] [place] [address] Health Maintenance Due Date Last Done Comments [...] age to complete this topic Insurance [address] [place] [id number] Medicare [facility] [address] [place] [id number] Medicare [facility] Care Teams Reproduction Production Manager Relationship Specialty Start Date End Date Leda Euceda NP [address] [place] [address] PCP - General Nurse Practitioner 08/27/23
--- NOTE | 2025-05-22 11:31 | MHC.AMNUTRGE ---
VS Expanded 05/22/25 11:35 Height 5 ft 2 in Weight 187 lb 2.759 oz BMI 34.2 Intake Visit Reasons: T2DM Allergies Penicillins (PCN) Allergy (Unknown, Verified 05/17/25 14:04) THROAT SWELLING\ FISOHEX Allergy (Unknown, Uncoded 05/17/25 14:04) RASH Phisohex Allergy (Unknown, Uncoded 05/17/25 14:04) Unknown Nutrition Presentation Details: Pt presents for MNT f/u for DM Pt reports working on choosing fiber rich foods having oatmeal 3 times/wk, including salads 3 times a week and 2 serving of non starchy vegetable in the evening eating out/ordering 2 x/wk and looking at the nutrition facts to make healthier choices fluids: water, tea, milk (variety), jello Per BG record, 14 d bg average at 176 +/- 61 mg/dl. Reports sometimes having low bg at night (11 pm or so) and choosing 30+ carb to treat hypoglycemia leading to hyperglycemia overnight. Pt reports hypoglycemia is rlated to choosing all purpose clerk meal at dinner. Today we discussed choosing a bedtime snack consisting of 20 g carb and at least 1 oz of protein at 8-9 pm to prevent nocturnal hypoglycemia BS Monitoring Most Recent Diabetes Results: Microalb/Creat Ratio TNP 05/15/25 Cholesterol, (<200) 146 mg/dL 05/15/25 HDL Cholesterol, (>40) 45 mg/dL 05/15/25 Triglycerides, (<150) 96 mg/dL 05/15/25 Creatinine, (0.5-1.4) 1.30 mg/dL 05/15/25 BUN, (9-16) 26 mg/dL H 05/15/25 Sodium, (135-145) 136 mmol/L 05/15/25 Potassium, (3.3-5.1) 4.4 mmol/L 05/15/25 Chloride, (96-108) 103 mmol/L 05/15/25 Carbon Dioxide, (22-29) 26 mmol/L 05/15/25 Calcium, (8.4-10.2) 9.9 mg/dL 05/15/25 AST, (5-31) 23 U/L 05/15/25 ALT, (0-31) 17 U/L 05/15/25 Total Protein, (6.5-8.0) 7.6 g/dL 05/15/25 Albumin, (3.5-5.0) 4.0 g/dL 05/15/25 [facility] Medical History Uncontrolled type 2 diabetes mellitus with hyperglycemia, with long-term current use of insulin Transaminitis Heart murmur Vitamin D deficiency HLD (hyperlipidemia) Diabetic retinopathy Non-toxic multinodular goiter Dyslipidemia Hypertension Obesity (BMI 30-39.9) Diabetic polyneuropathy associated with type 1 diabetes mellitus Surgical History H/O colonoscopy H/O laser iridotomy History of carpal tunnel release History of ear surgery Hx of hysterectomy Family History Father No problems noted. Mother Hypertension Social History Alcohol intake: current Alcohol intake frequency: holidays/special occasions only Patient Tobacco Use Status: Former Tobacco user Years Smoked: 30+/- years Current occupational status: retired Current occupation: Right hand dominate Assessment & Plan Assessment & Plan (1) Type 1 diabetes mellitus with hyperglycemia: Code(s): E10.65 - Type 1 diabetes mellitus with hyperglycemia Category: Medical Plan: Review prevention of hypoglycemia after dinner to prevent hyperglycemia overnight EsT Kcal NEEDS as per 25 /kg bw: 2100 -2200 USED WT : 86 kg est protein needs as per 0.8-1.0 g/kg bw: 86 g/d est fluid needs as per 25 ml/kg bw: 2600ml/d Na < 2000 mg/d Educate patient on: (R= Reviewed, V = verbalizes understanding N/R= Needs review N/A= not applicable) Food sources of carbohydrates and serving adequate serving sizes : R V Difference between complex carbohydrates and simple carbohydrates, role of fiber: R V Differences between fats (MUFA/PUFA/saturated fats, trans fats) and food sources of various fats: R V Food sources of sodium and salt and healthy modifications for heart health and kidney health: R V Vitamins and minerals: R V How to interpret food labels: R V Healthy Plate method concept: R V Physical activity: benefits and precaution: R V Patient Instructions: Have a yogurt or a fruit with peanut butter or 4-5 crackers with low sodium cheese as a snack at 8pm to prevent low blood sugar at night Coding Level of Care Code Nutr Indiv Subseq (19075) Diagnoses Type 1 diabetes mellitus with hyperglycemia E10.65 Time Spent (min) 30
[2025-05-22 11:35] VITALS: BMI 34.2
== END 2025-05-22 11:37 | disposition home or self-care (01) ==
LOC: HO.ENCR 10:42
PROVIDERS: PCP Internal Medicine; Visit Provider Dietitian, Registered
DX: E10.65 Type 1 diabetes mellitus with hyperglycemia (principal)

== ENCOUNTER → 2025-05-22 10:41 | Outpatient (BNVA) | payer MEDICARE, SELFPAY | PROVIDERS: PCP Internal Medicine; Visit Provider Dietitian, Registered | DX: E10.65 Type 1 diabetes mellitus with hyperglycemia (principal); Z71.3 Dietary counseling and surveillance | CPT/HCPCS: 97803 ==

== ENCOUNTER 2025-06-07 11:15 | Outpatient (REF) | payer MEDICARE, SELFPAY ==
[2025-06-07 11:39] LABS: MANUAL DIFF FLAG NO
--- OUTSIDE RECORDS SUMMARY | 2025-06-07 12:10 | XMS_ITS | Clinical Summary ---
Author Organization [facility] Address [address] [place] [address] [address] [place] [address] Phone Care Team Providers Care Termite Control Representative Name Role Phone OkLeda almeida SARA Primary Care Provider [phone] Allergies Active Allergy Reactions Criticality Noted Date [...] Visit [facility] [address] [place] [address] Donavan Hoyt MD [address] [facility] [address] [place] [address] Health Maintenance Due Date Last Done Comments [...] age to complete this topic Insurance [address] [place] [phone] Medicare [facility] [address] [place] [id number] Medicare [facility] Care Teams Termite Control Representative Relationship Specialty Start Date End Date Leda Euceda NP [address] [place] [address] PCP - General Nurse Practitioner 08/27/23
[2025-06-07 12:17] LABS: Hematocrit 36.0 % (37.0-47.0); Hemoglobin 11.4 g/dl (12.0-16.0); Imm Gran Abs Auto 0.03 X10*3/uL (0.00-0.03); Imm Gran Pct Auto 0.4 % (0.0-0.4); Lymphocytes Absolute Auto 2.9 X10*3/uL (1.2-4.9); Mean Corpuscular HGB Conc 31.7 g/dl (31.0-35.0); Mean Corpuscular Hemoglobin 28.2 pg (27.0-33.0); Mean Corpuscular Volume 89.1 fL (80.0-98.0); NRBC Abs Auto 0.000 X10*3/uL (0.0-0.012); NRBC Pct Auto 0.0 /100WBC (0.0-0.2); Platelet Count 340 X10*3/uL (160-400); Red Blood Count 4.04 X10*6/uL (4.20-5.50); White Blood Count 8.3 X10*3/uL (4.8-10.8)
[2025-06-07 12:27] LABS: Appearance Urine Clear; Glucose Urine UA Negative (Negative); PH 5.5 (5.0-9.0); Specific Gravity - Urine 1.010 (1.005-1.025); UMIC TRIGGER UA YES
[2025-06-07 12:48] LABS: Parathyroid Hormone Intact 69.4 pg/mL (8.7-77.1)
[2025-06-07 12:50] LABS: Albumin Level 4.1 g/dL (3.5-5.0); Anion Gap 11 (12-20); Blood Urea Nitrogen 21 mg/dL (9-16); Calcium 10.1 mg/dL (8.4-10.2); Carbon Dioxide 26 mmol/L (22-29); Chloride 103 mmol/L (96-108); Estimated Glomerular Filt Rate 41; Magnesium 1.9 mg/dL (1.6-2.6); Potassium 4.1 mmol/L (3.3-5.1); Sodium 136 mmol/L (135-145)
[2025-06-07 13:15] LABS: Total Protein Urine Random < 7 mg/dL (<12)
[2025-06-07 13:33] LABS: Renal w Reflex Lab Use Only Order verified
[2025-06-10 22:38] LABS: VITAMIN D (1,25 OH) D3 33 pg/mL; Vit D (1,25-Dihydroxy) Total 33 pg/mL (18-72); Vitamin D (1,25 OH) D2 <8 pg/mL
== END 2025-06-07 11:16 | disposition home or self-care (01) ==
LOC: HO.LAB 11:15
PROVIDERS: PCP Internal Medicine; Visit Provider Internal Medicine Nephrology
DX: E10.22 Type 1 diabetes mellitus with diabetic chronic kidney disease (principal); N18.31 Chronic kidney disease, stage 3a
CPT/HCPCS: 36415; 80051; 81001; 82040; 82043; 82310; 82565; 82570; 82652; 83735; 83970; 84100; 84156; 84520; 85025

== ENCOUNTER 2025-06-27 12:06 | Outpatient (AMB) | payer MEDICARE, SELFPAY ==
--- NOTE | 2025-06-27 12:45 | A.OFFVIS_ITS ---
Intake Intake Visit Reasons: T2DM Marine Equipment Test Engineer Required: No Accompanied by: Self / Same As Patient Allergies Penicillins (PCN) Allergy (Unknown, Verified 05/17/25 14:04) THROAT SWELLING\ FISOHEX Allergy (Unknown, Uncoded 05/17/25 14:04) RASH Phisohex Allergy (Unknown, Uncoded 05/17/25 14:04) Unknown HPI Comprehensive Diabetes Asmnt Most Recent Diabetes Results: 2 Hemoglobin A1c 8.9 % 02/23/20 Microalb/Creat Ratio TNP 06/07/25 Cholesterol, (<200) 146 mg/dL 05/15/25 HDL Cholesterol, (>40) 45 mg/dL 05/15/25 Triglycerides, (<150) 96 mg/dL 05/15/25 Creatinine, (0.5-1.4) 1.26 mg/dL 06/07/25 BUN, (9-16) 21 mg/dL H 06/07/25 Sodium, (135-145) 136 mmol/L 06/07/25 Potassium, (3.3-5.1) 4.1 mmol/L 06/07/25 Chloride, (96-108) 103 mmol/L 06/07/25 Carbon Dioxide, (22-29) 26 mmol/L 06/07/25 Calcium, (8.4-10.2) 10.1 mg/dL 06/07/25 AST, (5-31) 23 U/L 05/15/25 ALT, (0-31) 17 U/L 05/15/25 Total Protein, (6.5-8.0) 7.6 g/dL 05/15/25 Albumin, (3.5-5.0) 4.1 g/dL 06/07/25 COUNT INCLUDES THE [facility] Medical History Uncontrolled type 2 diabetes mellitus with hyperglycemia, with long-term current use of insulin Transaminitis Heart murmur Vitamin D deficiency HLD (hyperlipidemia) Diabetic retinopathy Non-toxic multinodular goiter Dyslipidemia Hypertension Obesity (BMI 30-39.9) Diabetic polyneuropathy associated with type 1 diabetes mellitus Surgical History H/O colonoscopy H/O laser iridotomy History of carpal tunnel release History of ear surgery Hx of hysterectomy Family History Father No problems noted. Mother Hypertension Social History Alcohol intake: current Alcohol intake frequency: holidays/special occasions only Patient Tobacco Use Status: Former Tobacco user Years Smoked: 30+/- years Current occupational status: retired Current occupation: Right hand dominate Assessment & Plan Assessment & Plan (1) Type 1 diabetes mellitus with hyperglycemia: Code(s): E10.65 - Type 1 diabetes mellitus with hyperglycemia Plan: Personal Continuous Glucose Monitor: Patients CGM information reviewed, Pt uses Dexcom G7 with Dexcom [place] Pt reported she has not started Mounjaro 2.5 mg due to high co-pay. She also, declined to sweet pickled fruit maker Baqsimi due to cost. Reveiwed action of glucogon Pt declined a new script for glucogon at today's visit. Pt has several episodes of hypoglycemia reveiwed the following: Hypoglycemia or blood glucose under 70 use the rule of 15's: If you have your blood glucose meter test your blood glucose, if you do not have your meter still follow below instruction: Keep quick-sugar foods with you at all times.? Take 15 grams of fast acting carbohydrates. Examples are 4 ounces of fruit juice or regular soda pop, 8 ounces fat-free milk, 1 tablespoon of table sugar, honey or corn syrup, jam, one miniature box of raisins, 7-8 gumdrops or Life Savers candy, 4 glucose tablets, and glucose gel.? Retest blood glucose in 15 minutes, if blood glucose is still under 80,repeat rule of 15's. If blood glucose is under 50, take 30 grams of fast acting carbohydrates Patient able to insert sensor independently at home without issue.? Portions of this note were created using voice recognition software, please excuse any words or phrases that may have been misinterpreted. Patient Instructions: Pt will follow up in 2 months Coding Level of Care Code Est Pt Level 1 (81980) Diagnoses Type 1 diabetes mellitus with hyperglycemia E10.65
--- OUTSIDE RECORDS SUMMARY | 2025-06-27 16:15 | XMS_ITS | Clinical Summary ---
Author Organization [facility] Address [address] [place] [address] [address] [place] [address] Phone Care Team Providers Care Deicer Repairer Name Role Phone OkLeda almeida SARA Primary Care Provider [phone] Allergies Active Allergy Reactions Criticality Noted Date [...] Active Problems Problem Noted Date Diagnosed Date Renal osteodystrophy 06/15/2025 Stage 3b chronic kidney disease 02/15/2024 Stage [...] 07/11/2014 09/15/202309/15 Ulnar neuropathy 07/11/2014 09/15/2023 09/15/2023 Encounters Date Type Department Care Team Description 06/15/2025 2:30 PM EDT [facility] Visit [facility] [address] [place] [address] Donavan Hoyt MD Stage 3b chronic kidney disease (HCC) (Primary Dx); 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); Hypertensive disorder; Renal osteodystrophy 06/07/2025 Orders Only [facility] [address] [address] Donavan Hoyt MD from Last 3 Months Immunizations Immunization Administration Dates Next Due DT 09/11/2005,05/12/2002 Influenza Whole 07/17/2020,07/20/2019 Influenza, Unspecified 08/08/2022,2020,07/23/2018,07/12/2018 ,07/24/2017,08/01/2016,06/22/2015, 0,07/24/2006 MMR 07/09/2016 Moderna SARS-COV-2 01/23/2022,09/18/2021, 021,02/06/2021 Pneumococcal Conjugate 13-Valent 07/17/2020,01/11 Pneumococcal Polysaccharide [...] Sign Reading Time Taken Comments Blood Pressure 120/58 06/15/2025 2:19 PM EDT Pulse 58 06/15/2025 2:19 PM EDT Temperature - - Respiratory Rate - - Oxygen Saturation 97% 06/15/2025 2:19 PM EDT Inhaled Oxygen Concentration - - Weight 85 kg (187 lb 6.4 oz) 06/15/2025 2:19 PM EDT Height - - Body Mass Index - - Plan of Treatment Upcoming Encounters Date Type Department Care Team (Late st Contact Info) Description 06/14/2026 2:15 PM EDT Office Visit [facility] [address] [place] [address] Donavan Hoyt MD [address] [facility] [address] [place] [phone] Health Maintenance Due Date Last Done Comments [...] on patient's age to complete this topic Procedures Procedure Name Priority Date/Time Associated Diagnosis Comments PROTEIN / CREATININE RATIO, URINE Routine 06/07/2025 12:08 PM EDT ALBUMIN, URINE, RANDOM Routine 06/07/2025 12:08 PM EDT URINALYSIS WITH MICROSCOPIC Routine 06/07/2025 12:08 PM EDT VITAMIN D 1,25 DIHYDROXY Routine 06/07/2025 11:37 AM EDT ALBUMIN Routine 06/07/2025 11:37 AM EDT MAGNESIUM Routine 06/07/2025 11:37 AM EDT RENAL FUNCTION PANEL (HC) Routine 06/07/2025 11:37 AM EDT PTH, INTACT (HC) Routine 06/07/2025 11:3 7 AM EDT CBC AND DIFFERENTIAL Routine 06/07/2025 11:37 AM EDT from Last 3 Months Results * Protein, Total, Random Urine w/Creatinine (Protein/Creat Ratio) (06/07/2025 12:08 PM EDT) Protein Urine Random <7 <12 mg/dL See order comments Protein/Creatin ine Ratio, Urine TNP <0.2 See order comments Comment: Unable to calculate urine protein creatinine ratio due to low creatinine or protein result. 06/07/2025 12:0 8 PM EDT 06/07/2025 12:08 PM EDT us Donavan Hoyt MD LAB URINE ORDERABLES Final Re sult [place] See order comments [place] [address] * Albumin, urine, random (06/07/2025 12:08 PM EDT) Creatinine, Urine 68.07 mg/dL Se e order comments Urine Microalbumin <5.0 mg/L See order comments Microalbumin/Crea tinine Ratio TNP <30 ug/mg cr See order comments Comment: Unable to calculate albumin/creatinine ratio due to low microalbumin or creatinine result. 06/07/2025 12:0 8 PM EDT 06/07/2025 12:08 PM EDT Donavan Hoyt MD LAB URINE ORDERABLES Final Re sult [place] See order comments [place] [address] * (ABNORMAL) Urinalysis with microscopic (06/07/2025 12:08 PM EDT) Color Urine Yellow See orde r comments Appearance Urine Clear See order comments pH Urine 5.5 5.0 - 9.0 See order comments Glucose Urine Negative Negative mg/dL See order comments Blood, Urine Negative Negative See ord er comments Specific [place] Urine 1.010 1.005 - 1.025 See order comments Protein Urine Negative Neg-Trace mg/dL See order comments Ketones, Urine Negative Negative mg/dL See order comments Nitrite, Urine Negative Negative See o rder comments Leukocyte Esterase Urine Small (1+)(A) Negative See order comments RBC, Urine 0-2 0 - 2 /HPF See orde r comments WBC 0-5 0 - 5 /HPF See order comments Squamous Epithelial, Urine 0-2 0 - 2 /HPF See order comments Bacteria, Urine None Seen None Seen See order comments Hyaline Casts, Urine 0-2 0 - 2 /LPF See order comments 06/07/2025 12:0 8 PM EDT 06/07/2025 12:08 PM EDT Donavan Hoyt MD LAB URINE ORDERABLES Final Re sult Performing Organization Address City/[facility]/ZIP Co de Phone Number [facility] See order comments [place] [address] * (ABNORMAL) Renal Function Panel (06/07/2025 11:37 AM EDT) Sodium 136 135 - 145 mmol/L See order comments Potassium 4.1 3.3 - 5.1 mmol/L See order comments Chloride 103 96 - 108 mmol/L See order comments Bicarbonate (CO2) 26 22 - 29 mmol/L See order comments Anion Gap 11(L) 12 - 20 See order comments BUN 21(H) 9 - 16 mg/dL See order comments Creatinine Serum 1.26 0.5 - 1.4 mg/dL See order comments eGFR (Calc) 41 See orde r comments Comment: Chronic Kidney Disease: Estimated GFR < 60 mL/min/1.73m2 Severe Kidney Disease: Estimated GFR < 15 mL/min/1.73m2 Calcium 10.1 8.4 - 10.2 mg/dL See order comments Phosphorus, Serum 3.7 2.7 - 4.5 mg/dL See order comments 06/07/2025 11:3 7 AM EDT 06/07/2025 11:37 AM EDT us Donavan Hoyt MD LAB [id number] SOLICITED RESULTS Final Result Performing Organization Address City/[facility]/ZIP Co de Phone Number [place] See order comments [place] [address] * PTH, Intact (06/07/2025 11:37 AM EDT) Parathyroid Hormone, Intact 69.4 8.7 - 77.1 pg/mL See order comments 06/07/2025 11:3 7 AM EDT 06/07/2025 11:37 AM EDT Donavan Hoyt MD LAB [id number] SOLICITED RESULTS Final Result Performing Organization Address City/[facility]/ZIP Co de Phone Number [facility] See order comments [place] [address] * Vitamin D 1,25 dihydroxy (06/07/2025 11:37 AM EDT) Vitamin D, 1,25-Dihydroxy 33 18 - 72 pg/mL See order comments Vitamin D3 125 (OH)2 33 pg/mL See order comments Vitamin D2 125 (OH)2 <8 pg/mL See order comments Comment: Vitamin D3, 1,25(OH)2 indicates both endogenous production and supplementation. Vitamin D2, 1,25(OH)2 is an indicator of exogenous sources, such as diet or supplementation. Interpretation and therapy are based on measurement of Vitamin D,1,25(OH)2, Total. This test was developed and its analytical performance characteristics have been determined by [facility], [place]. It has not been cleared or approved by the FDA. This assay has been validated pursuant to the CLIA regulations and is used for clinical purposes. THIS TEST WAS PERFORMED AT: [email or web address] [address] [address] EDELMIRA JI MD,PHD 06/07/2025 11:3 7 AM EDT 06/07/2025 11:37 AM EDT Donavan Hoyt MD LAB BLOOD ORDERABLES Final Re sult Performing Organization Address City/[facility]/ZIP Co de Phone Number [place] See order comments [place] [address] * (ABNORMAL) CBC and Differential (06/07/2025 11:37 AM EDT) WBC 8.3 4.8 - 10.8 X10*3/uL See order comments RBC 4.04(L) 4.20 - 5.50 X10*6/uL See order comments Hgb 11.4(L) 12.0 - 16.0 g/dl See order comments Hematocrit 36.0(L) 37.0 - 47.0 % See order comments MCV 89.1 80.0 - 98.0 fL See order comments MCH 28.2 27.0 - 33.0 pg See order comments MCHC 31.7 31.0 - 35.0 g/dl See order comments RDW 17.2(H) 11.0 - 16.0 % See order comments Platelets 340 160 - 400 X10*3/uL See order comments MPV 10.0 9.4 - 12.3 fL See order comments Neutrophils % Auto 49.5 45 - 73 % See order comments Immature Granulocytes 0.4 0.0 - 0.4 % See order comments Lymphocytes Relative 35.2 20 - 40 % See order comments Monocytes 4.7 2 - 11 % See order comments Eosinophils Relative 8.5(H) 0 - 4 % See order comments Basophils Relative 1.7 0 - 2 % See order comments nRBC Count 0.0 0.0 - 0.2 /100WBC See order comments Neutrophils Absolute 4.1 2.0 - 8.3 x10*3/uL See order comments Immature Grans (Absolute) 0.03 0.00 - 0.03 X10*3/uL See order comments Lymphocytes Absolute 2.9 1.2 - 4.9 X10*3/uL See order comments Monocytes Absolute 0.4 0.1 - 1.2 X10*3/uL See order comments Eosinophils Absolute 0.7(H) 0.0 - 0.4 X10*3/uL See order comments Basophils Absolute 0.1 0.0 - 0.2 X10*3/uL See order comments NRBC Absolute 0.000 0.0 - 0.012 X10*3/uL See order comments 06/07/2025 11:3 7 AM EDT 06/07/2025 11:37 AM EDT us Donavan Hoyt MD LAB BLOOD ORDERABLES Final Re sult [place] See order comments [place] [address] * Magnesium (06/07/2025 11:37 AM EDT) Magnesium 1.9 1.6 - 2.6 mg/dL See order comments 06/07/2025 11:3 7 AM EDT 06/07/2025 11:37 AM EDT Donavan Hoyt MD LAB BLOOD ORDERABLES Final Re sult Performing Organization Address [facility] de Phone Number [place] See order comments [place] [address] * Albumin (06/07/2025 11:37 AM EDT) Albumin 4.1 3.5 - 5.0 g/dL See order comments 06/07/2025 11:3 7 AM EDT 06/07/2025 11:37 AM EDT Donavan Hoyt MD LAB BLOOD ORDERABLES Final Re sult Performing Organization Address [facility] Phone Number [place] See order comments [place] [address] from Last 3 Months Insurance [address] [place] [phone] Medicare [facility] [address] [place] [address] [id number] Medicare [facility] Care Teams Deicer Repairer Relationship Specialty Start Date End Date Leda Euceda NP [address] [place] [phone] PCP - General Nurse Practitioner 08/27/23
== END 2025-06-27 12:47 | disposition home or self-care (01) ==
LOC: HO.ENCR 12:07
PROVIDERS: PCP Internal Medicine; Visit Provider Registered Nurse Diabetes Educator
DX: E10.65 Type 1 diabetes mellitus with hyperglycemia (principal)

== ENCOUNTER → 2025-06-27 12:06 | Outpatient (BNVA) | payer MEDICARE, SELFPAY | PROVIDERS: PCP Internal Medicine; Visit Provider Registered Nurse Diabetes Educator | DX: E11.65 Type 2 diabetes mellitus with hyperglycemia (principal); Z79.4 Long term (current) use of insulin | CPT/HCPCS: 99211 ==

== ENCOUNTER 2025-07-03 09:15 | Outpatient (AMB) | payer MEDICARE, SELFPAY ==
--- NOTE | 2025-07-03 09:26 | A.OFFVIS_ITS ---
Vital Signs 07/03/25 09:30 Height 5 ft 2 in Weight 190 lb 0.615 oz BMI 34.8 BP 108/54 L Blood Pressure Location Rt brachial Position Sitting Pulse 67 Pulse Source Pulse Oximeter Pulse Oximetry (%) 97 Oxygen Delivery Method Room Air Intake Visit Reasons: T1DM Intake Note: Patient present today to follow up on Diabetes Mellitus. Last Diabetic Eye exam: 05/12/2024, next appointment is on August 23, 2025 [facility]. Last Podiatry Visit: 09/12/2024 Random Glucose: 272 mg/dl HgA1C: 8.4% 07/03/25 Pet Ambassador Required: No Accompanied by: Self / Same As Patient Allergies Penicillins (PCN) Allergy (Unknown, Verified 07/03/25 09:31) THROAT SWELLING\ FISOHEX Allergy (Unknown, Uncoded 07/03/25 09:31) RASH Phisohex Allergy (Unknown, Uncoded 07/03/25 09:31) Unknown Medication List - Last Reconciled 07/03/25 by Santi Martino MD amlodipine 10 mg PO DAILY 90 days aspirin (Adult Aspirin Regimen) 81 mg PO DAILY blood sugar diagnostic (Contour Next Test Strips) 2 times a day cholecalciferol (vitamin D3) (Vitamin D3) 25 mcg PO DAILY Dexcom G7 Sensor (blood-glucose sensor) As directed every 14 days NS [Diabetic shoes with inserts As directed] glucagon 3 mg/actuation (Baqsimi) 3 mg intranasal ONCE Humalog KwikPen Insulin (insulin lispro) 30 units (0.3 mL) subcut TID NS lisinopril-hydrochlorothiazide 20-12.5 mg 2 tabs PO BID 90 days multivitamin 1 tab PO DAILY pen needle, diabetic (BD Ultra-Fine Micro Pen Needle) USE FOUR TIMES DAILY rosuvastatin 5 mg PO DAILY 90 days tirzepatide (Mounjaro) 2.5 mg (0.5 mL) subcut QWEEK Tresiba FlexTouch U-100 (insulin degludec) 58 units (0.58 mL) subcut DAILY 90 days NS HPI Comments Details: 75 year old female with type 2 diabetes presenting for follow up. Diagnosed with T1DM at the age of 39 when she was having frequent infections. She has had negative antibodies in the past 12/2021 Cpeptide 0.40 Current regimen: Tresiba 58 units Humalog 20 units BB, 22 units pre -lunch and 18-24 units pre-dinner . Not started Mounjaro. Too expensive dexcom sensor 3 average glucose: 156 14 day continuous glucose sensor report reviewed Glucose Management indicator 7 % Time CGM active 76 % TIme in ranges: 5 % very high (above 250) 30 % high (181-250) 62 % in range (70-180] 3 % low (69-55) 0 very low (below 54) Interpretation of CGMS readings shows glucose show hypoglycemia occurring predominantly after breakfast and after lunch with rise in blood sugar after dinner Family history of T2DM in both Grandparents, her Sister and 2 children. hypoglycemia after breakfast and lunch Positive Family history of T2DM in both Grandparents, her Sister and 2 children. Has stable retinopathy eye exam has appt in 08/2024 . Has appt in 08/2025 Has neuropathy: Has tingling in the feet occasional pain sees podiatry very 3 months Has nephropathy, on lisinopril 20 mg PO daily. alb/cr +. Sees nephrology eGFR 38 05/2024 Dr. Hoyt sees every 3 moths Has HLD, on Rosuvastatin 5 mg PO daily. last ldl 87 Denies history of CAD. Has murmur seen annually Denies symptoms of chest pain, dyspnea or claudication. Has had diabetes education. Has 2 sons in the area, 1 daughter in [place] and 1 . Diet/Carb counting: trys to balance eats alot of veg trying to cut back on rice, elminated pasta exercise: walks some Thyroid US: 09/03/2021 Right Thyroid Lobe: 4.4 x 2.1 x 1.8 cm, volume 8.6 mL. Previously 4.2 x 1.7 x 1.3 cm, volume 4.7 mL. Parenchyma: The gland echotexture is homogeneous. Thyroid vascularity is normal. Left Thyroid Lobe: 3.5 x 1.8 x 1.4 cm, volume 4.5 mL. Previously 4.0 x 1.8 x 1.2 cm, volume 4.6 mL. Parenchyma: The gland echotexture is homogeneous. Thyroid vascularity is normal. Isthmus: 0.42 cm in maximum AP dimension. Previously 0.46 cm. Estimated total number of nodules greater than or equal to 1 cm: 0. Has had diabetes education. Diet/Carb counting: Counts carbs with every meal. [facility] Medical History Uncontrolled type 2 diabetes mellitus with hyperglycemia, with long-term current use of insulin Transaminitis Heart murmur Vitamin D deficiency HLD (hyperlipidemia) Diabetic retinopathy Non-toxic multinodular goiter Dyslipidemia Hypertension Obesity (BMI 30-39.9) Diabetic polyneuropathy associated with type 1 diabetes mellitus Surgical History H/O colonoscopy H/O laser iridotomy History of carpal tunnel release History of ear surgery Hx of hysterectomy Family History Father No problems noted. Mother Hypertension Social History Alcohol intake: current Alcohol intake frequency: holidays/special occasions only Patient Tobacco Use Status: Former Tobacco user Years Smoked: 30+/- years Current occupational status: retired Current occupation: Right hand dominate Physical Exam Vital Signs: Last Vital Signs Pulse 67 07/03/25 09:30 BP 108/54 L 07/03/25 09:30 Pulse Ox 97 07/03/25 09:30 Oxygen Delivery Method Room Air 07/03/25 09:30 BMI result Body Mass Index 34.8 Const Other: Absence of Cushingoid features. Absence of acromegalic features. Neck exam reveals nl size thyroid about 15 gms. No thyroid nodules palpable. Heart S1 S2, Reg R/R. No M/R G. Skin exam reveals absence of vitiligo or acanthosis nigricans. No edema Visual exam of foot performed. No ulcerations or open lesions. No inter digit maceration or fissuring. No onychomycosis, no callouses. Sensation intact to monofilament exam. Vibratory sensation is normal with 128 Hz tuning fork. Pulses positive distally Results AMB Hemoglobin A1c AMB Hemoglobin A1c 8.4 % Last Edit by MIKE Marks on 07/03/25 10:00 Results Reviewed Results Reviewed: Laboratory Last Values Glucose (Clinic) 272 mg/dL (60-115) H 07/03/25 09:37 Assessment & Plan Assessment & Plan (1) Type 1 diabetes mellitus with hyperglycemia: Code(s): E10.65 - Type 1 diabetes mellitus with hyperglycemia Category: Medical Plan: This 75-year-old black female with history of type 2 diabetes being managed basal-bolus insulin with excellent improved glycemic control and no known microvascular or macrovascular complications. GAD65 antibodies were negative and patient has a positive family history for type 2 diabetes make a likely she has type 2 diabetes. She is having some hypoglycemia post-breakfast and post-lunch Plan is to decrease the Humalog before 16 units prior to breakfast and 18 units prior to lunch and further if patient experiences hypoglycemia. We will have patient follow up with primary care diabetes team in 6 weeks Orders: Orders AMB Hemoglobin A1c Today E10.65 - Type 1 diabetes mellitus with hyperglycemia Coding Level of Care Code Est Pt Level 4 (91868) Complex EM visit Add On G2211 Diagnoses Type 1 diabetes mellitus with hyperglycemia E10.65
[2025-07-03 09:30] VITALS: BP 108/54; PULSE 67; O2SAT 97; BMI 34.8
[2025-07-03 09:47] LABS: Glucose, Whole Blood 272 mg/dL (60-115)
--- OUTSIDE RECORDS SUMMARY | 2025-07-03 10:50 | XMS_ITS | Clinical Summary ---
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); Hypertensive disorder; Renal osteodystrophy 06/07/2025 Orders Only [facility] [address] [address] Donavan Hoyt MD from Last 3 Months [...] [facility] [address] [place] [address] Donavan Hoyt MD [address] [facility] [address] [place] [phone] Health Maintenance Due Date Last Done Comments [...] order comments [place] [address] * Albumin, urine, random (06/07/2025 12:08 PM [...] order comments [place] [address] * (ABNORMAL) Urinalysis with microscopic (06/07/2025 12:08 PM EDT) Color Urine Yellow See orde r comments Appearance Urine Clear See order comments pH Urine 5.5 5.0 - 9.0 See order comments Glucose Urine Negative Negative mg/dL See order comments Blood, Urine Negative Negative See ord er comments Specific [place] Urine 1.010 1.005 - 1.025 See order [...] ORDERABLES Final Re sult Performing Organization Address City/[facility]/ZIP Co de Phone Number [facility] See order comments [place] [address] * (ABNORMAL) Renal Function Panel (06/07/2025 11:37 [...] AM EDT us Donavan Hoyt MD LAB [id number] SOLICITED RESULTS Final Result Performing Organization Address City/[facility]/ZIP Co de Phone Number [place] See order comments [place] [address] * PTH, Intact (06/07/2025 11:37 AM EDT) Parathyroid Hormone, Intact 69.4 8.7 - 77.1 pg/mL See order comments 06/07/2025 11:3 7 AM EDT 06/07/2025 11:37 AM EDT Doanvan Hoyt MD LAB [id number] SOLICITED RESULTS Final Result Performing Organization Address City/[facility]/ZIP Co de Phone Number [facility] See order comments [place] [address] * Vitamin D 1,25 dihydroxy (06/07/2025 11:37 [...] analytical performance characteristics have been determined by [facility] [place], [place]. It has not been cleared or approved by the FDA. This assay has been validated pursuant to the CLIA regulations and is used for clinical purposes. THIS TEST WAS PERFORMED AT: [employer] [address] [address] EDELMIRA JI MD,PHD 06/07/2025 11:3 7 AM EDT 06/07/2025 11:37 AM EDT Donavan Hoyt MD LAB BLOOD ORDERABLES Final Re sult Performing Organization Address City/[facility]/ZIP Co de Phone Number [place] See order comments [place] [address] * (ABNORMAL) CBC and Differential (06/07/2025 11:37 [...] order comments [place] [address] * Magnesium (06/07/2025 11:37 AM EDT) Magnesium 1.9 1.6 - 2.6 mg/dL See order comments 06/07/2025 11:3 7 AM EDT 06/07/2025 11:37 AM EDT Donavan Hoyt MD LAB BLOOD ORDERABLES Final Re sult Performing Organization Address [facility] de Phone Number [place] See order comments [place] [address] * Albumin (06/07/2025 11:37 AM EDT) Albumin 4.1 3.5 - 5.0 g/dL See order comments 06/07/2025 11:3 7 AM EDT 06/07/2025 11:37 AM EDT Donavan Hoyt MD LAB BLOOD ORDERABLES Final Re sult Performing Organization Address [facility] Phone Number [place] See order comments [place] [address] from Last 3 Months Insurance [address] [place] [phone] Medicare [facility] [address] [place] [address] [id number] Medicare [facility] Care Teams Coffee Shop Attendant Relationship Specialty Start Date End Date Leda Euceda NP [address] [place] [phone] PCP - General Nurse Practitioner 08/27/23
== END 2025-07-03 10:00 | disposition home or self-care (01) ==
LOC: HO.ENCR 09:15
PROVIDERS: PCP Internal Medicine; Visit Provider Internal Medicine Endocrinology, Diabetes & Metabolism
DX: E10.65 Type 1 diabetes mellitus with hyperglycemia (principal)
CPT/HCPCS: 99214; G2211

== ENCOUNTER → 2025-07-03 09:15 | Outpatient (BNVA) | payer MEDICARE, SELFPAY | PROVIDERS: PCP Internal Medicine; Visit Provider Internal Medicine Endocrinology, Diabetes & Metabolism | DX: E10.65 Type 1 diabetes mellitus with hyperglycemia (principal); Z79.4 Long term (current) use of insulin; Z83.3 Family history of diabetes mellitus | CPT/HCPCS: 82947; 83036; 99212 ==

== ENCOUNTER 2025-08-29 13:07 | Outpatient (AMB) | payer MEDICARE, SELFPAY ==
--- NOTE | 2025-08-29 13:45 | A.OFFVIS_ITS ---
Intake Intake Visit Reasons: 60 min Shoulder Puncher Required: No Accompanied by: Self / Same As Patient Allergies Penicillins (PCN) Allergy (Unknown, Verified 07/03/25 09:31) THROAT SWELLING\ FISOHEX Allergy (Unknown, Uncoded 07/03/25 09:31) RASH Phisohex Allergy (Unknown, Uncoded 07/03/25 09:31) Unknown HPI Comprehensive Diabetes Asmnt Most Recent Diabetes Results: 2 Microalb/Creat Ratio TNP 06/07/25 Creatinine, (0.5-1.4) 1.26 mg/dL 06/07/25 BUN, (9-16) 21 mg/dL H 06/07/25 Sodium, (135-145) 136 mmol/L 06/07/25 Potassium, (3.3-5.1) 4.1 mmol/L 06/07/25 Chloride, (96-108) 103 mmol/L 06/07/25 Carbon Dioxide, (22-29) 26 mmol/L 06/07/25 Calcium, (8.4-10.2) 10.1 mg/dL 06/07/25 Albumin, (3.5-5.0) 4.1 g/dL 06/07/25 [facility] Medical History Uncontrolled type 2 diabetes mellitus with hyperglycemia, with long-term current use of insulin Transaminitis Heart murmur Vitamin D deficiency HLD (hyperlipidemia) Diabetic retinopathy Non-toxic multinodular goiter Dyslipidemia Hypertension Obesity (BMI 30-39.9) Diabetic polyneuropathy associated with type 1 diabetes mellitus Surgical History H/O colonoscopy H/O laser iridotomy History of carpal tunnel release History of ear surgery Hx of hysterectomy Family History Father No problems noted. Mother Hypertension Social History Alcohol intake: current Alcohol intake frequency: holidays/special occasions only Patient Tobacco Use Status: Former Tobacco user Years Smoked: 30+/- years Current occupational status: retired Current occupation: Right hand dominate Assessment & Plan Assessment & Plan (1) Diabetic polyneuropathy associated with type 1 diabetes mellitus: Code(s): E10.42 - Type 1 diabetes mellitus with diabetic polyneuropathy Plan Personal Continuous Glucose Monitor: Patients CGM information reviewed, Pt uses Dexcom G7 with [place] Patient's last A1c 8.4% on 07/03/2025, patient's A1c has been consistently increasing since December 2024. She is currently taking Tresiba U 100, 58 units daily Humalog 16 units with breakfast, 18 units with lunch, 18 with supper She is having some hypoglycemic after lunch, however after supper she is remaining hyperglycemic in the evening throughout the night, She is concerned about her weight, and would like to see the dietitian regarding weight loss. Reports that Kimberly was cost prohibitive and is not interested in weight loss surgery at this time Reviewed with patient how to treat hypoglycemia: Hypoglycemia or blood glucose under 76 use the rule of 15's: If you have your blood glucose meter test your blood glucose, if you do not have your meter still follow below instruction: Keep quick-sugar foods with you at all times.? Take 15 grams of fast acting carbohydrates. Examples are 4 ounces of fruit juice or regular soda pop, 8 ounces fat-free milk, 1 tablespoon of table sugar, honey or corn syrup, jam, one miniature box of raisins, 7-8 gumdrops or Life Savers candy, 4 glucose tablets, and glucose gel.? Retest blood glucose in 15 minutes, if blood glucose is still under 80,repeat rule of 15's. If blood glucose is under 50, take 30 grams of fast acting carbohydrates Recommended to patient to reduce lunchtime dose of Humalog to 16 units, and increase Humalog dose before supper to 20 units Follow-up with special education paraeducator in 3 weeks Patient reported she will be having cataract surgery in the spring, explained to patient she should discuss with provider if she needs to have her A1c at a certain level before surgery. If she needs to reduce A1c she should discuss with Dr. Martino at visit in September 2025 If you are having hypoglycemia, or insulin reaction, more that a few times a week, call MD or special education paraeducator F/U BG check Patient able to insert sensor independently at home without issue.? Portions of this note were created using voice recognition software, please excuse any words or phrases that may have been misinterpreted. Patient Instructions: Humalog 16 units with breakfast and lunch, 20 units with supper Move appt with RD Coding Level of Care Code Est Pt Level 1 (55144) Diagnoses Diabetic polyneuropathy associated with type 1 diabetes mellitus E10.42
--- OUTSIDE RECORDS SUMMARY | 2025-08-30 04:48 | XMS_ITS | Clinical Summary ---
Author Organization [facility] Address [address] [place] [address] [address] [place] [address] Phone Care Team Providers Care Oil Tank Car Cleaner Name Role Phone OkLeda almeida SARA Primary [...] status 08/25/2023 09/15/202302/2023 Postherpetic neuralgia 08/25/2023 09/15/202309/15 Pain of shoulder region 08/25/2023 12/02/2023 Systolic murmur 08/25/2023 09/15/2023 09/15/2023 Type 1 diabetes mellitus 08/25/2023 09/15/202302/2023 Neuropathy due to diabetes mellitus 11/25/2017 09/15/2023 Carpal tunnel syndrome 07/11/2014 09/15/202309/15 Ulnar neuropathy 07/11/2014 09/15/2023 09/15/2023 Encounters Date Type Department Care Team Description 06/15/2025 2:30 PM EDT Office Visit [facility] [address] [place] [phone] Donavan Hoyt MD Stage 3b chronic kidney disease (HCC) (Primary Dx); 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); Hypertensive disorder; Renal osteodystrophy 06/07/2025 Orders Only [facility] [address] [address] Donavan Hoyt MD from Last 3 Months [...] Visit [facility] [address] [place] [address] Donavan Hoyt MD [address] [facility] [address] [place] [address] Health Maintenance Due Date Last Done Comments [...] order comments [place] [address] * Albumin, urine, random (06/07/2025 12:08 PM [...] MD LAB URINE ORDERABLES Final Re sult [place] See order comments [place] [address] * (ABNORMAL) Urinalysis with microscopic (06/07/2025 12:08 PM EDT) Color Urine Yellow See orde r comments Appearance Urine Clear See order comments pH Urine 5.5 5.0 - 9.0 See order comments Glucose Urine Negative Negative mg/dL See order comments Blood, Urine Negative Negative See ord er comments Specific [place] Urine 1.010 1.005 - 1.025 See order [...] ORDERABLES Final Re sult Performing Organization Address [facility] Co de Phone Number [place] See order comments [place] [address] * (ABNORMAL) Renal Function Panel (06/07/2025 11:37 [...] ORDERABLES Final Re sult Performing Organization Address [facility] de Phone Number [place] See order comments [place] [address] * PTH, Intact (06/07/2025 11:37 AM EDT) Parathyroid Hormone, Intact 69.4 8.7 - 77.1 pg/mL See order comments 06/07/2025 11:3 7 AM EDT 06/07/2025 11:37 AM EDT Donavan Hoyt MD LAB BLOOD ORDERABLES Final Re sult Performing Organization Address [facility] Co de Phone Number [place] See order comments [place] [address] * Vitamin D 1,25 dihydroxy (06/07/2025 11:37 [...] analytical performance characteristics have been determined by [facility] [place]. It has not been cleared or approved by the FDA. This assay has been validated pursuant to the CLIA regulations and is used for clinical purposes. THIS TEST WAS PERFORMED AT: [employer]/[address] [address] EDELMIRA JI MD,PHD 06/07/2025 11:3 7 AM EDT 06/07/2025 11:37 AM EDT Donavan Hoyt MD LAB BLOOD ORDERABLES Final Re sult Performing Organization Address City/[facility]/ZIP Co de Phone Number [place] See order comments [place] [address] * (ABNORMAL) CBC and Differential (06/07/2025 11:37 [...] order comments [place] [address] * Magnesium (06/07/2025 11:37 AM EDT) Magnesium 1.9 1.6 - 2.6 mg/dL See order comments 06/07/2025 11:3 7 AM EDT 06/07/2025 11:37 AM EDT us Donavan Hoyt MD LAB BLOOD ORDERABLES Final Re sult Performing Organization Address [facility] de Phone Number [place] See order comments [place] [address] * Albumin (06/07/2025 11:37 AM EDT) Albumin 4.1 3.5 - 5.0 g/dL See order comments 06/07/2025 11:3 7 AM EDT 06/07/2025 11:37 AM EDT us Donavan Hoyt MD LAB BLOOD ORDERABLES Final Re sult Performing Organization Address [facility] de Phone Number [place] See order comments [place] [address] from Last 3 Months Insurance Medicare [facility] Medicare [facility] Care Teams Oil Tank Car Cleaner Relationship Specialty Start Date End Date Leda Euceda NP [address] [place] [phone] PCP - General Nurse Practitioner 08/27/23
== END 2025-08-29 13:50 | disposition home or self-care (01) ==
LOC: HO.ENCR 13:08
PROVIDERS: PCP Internal Medicine; Visit Provider Registered Nurse Diabetes Educator
DX: E10.42 Type 1 diabetes mellitus with diabetic polyneuropathy (principal)

== ENCOUNTER → 2025-08-29 13:07 | Outpatient (BNVA) | payer MEDICARE, SELFPAY | PROVIDERS: PCP Internal Medicine; Visit Provider Registered Nurse Diabetes Educator | DX: E10.42 Type 1 diabetes mellitus with diabetic polyneuropathy (principal); E10.65 Type 1 diabetes mellitus with hyperglycemia; E10.319 Type 1 diabetes mellitus with unspecified diabetic retinopathy without macular edema; Z79.4 Long term (current) use of insulin | CPT/HCPCS: 99211 ==

== ENCOUNTER 2025-10-02 09:08 | Outpatient (AMB) | payer MEDICARE, SELFPAY ==
--- NOTE | 2025-10-02 09:09 | MHC.OFFVIS ---
Vital Signs 10/02/25 09:14 Height 5 ft 2 in Weight 189 lb 13.088 oz BMI 34.7 BP 116/54 L Blood Pressure Location Lt brachial Position Sitting Pulse 68 Pulse Source Pulse Oximeter Pulse Oximetry (%) 96 Oxygen Delivery Method Room Air Intake Visit Reasons: f/u Type 1 DM Intake Note: Patient present today to follow up on Diabetes Mellitus. Last Diabetic Eye exam: August 23, 2025 [facility], Cataract surgery will be on 12/2025 and 01/2026 Last Podiatry Visit: Upcoming appointment is on October 18, 2025, [facility] Random Glucose: 146 mg/dl HgA1C: 8.6% 10/02/2025 Marketing Associate Required: No Accompanied by: Self / Same As Patient Allergies Penicillins (PCN) Allergy (Unknown, Verified 10/02/25 09:14) THROAT SWELLING\ FISOHEX Allergy (Unknown, Uncoded 10/02/25 09:14) RASH Phisohex Allergy (Unknown, Uncoded 10/02/25 09:14) Unknown Medication List - Last Reconciled 10/02/25 by Santi Martino MD amlodipine 10 mg PO DAILY 90 days aspirin (Adult Aspirin Regimen) 81 mg PO DAILY blood sugar diagnostic (Contour Next Test Strips) 2 times a day cholecalciferol (vitamin D3) (Vitamin D3) 25 mcg PO DAILY Dexcom G7 Sensor (blood-glucose sensor) As directed every 14 days NS [Diabetic shoes with inserts As directed] glucagon 3 mg/actuation (Baqsimi) 3 mg intranasal ONCE Humalog KwikPen Insulin (insulin lispro) 30 units (0.3 mL) subcut TID NS lisinopril-hydrochlorothiazide 20-12.5 mg 2 tabs PO BID 90 days multivitamin 1 tab PO DAILY pen needle, diabetic USE FOUR TIMES DAILY rosuvastatin 5 mg PO DAILY 90 days tirzepatide (Mounjaro) 2.5 mg (0.5 mL) subcut QWEEK Tresiba FlexTouch U-100 (insulin degludec) 58 units (0.58 mL) subcut DAILY 90 days NS HPI Comments Details: 75 year old female with type 2 diabetes presenting for follow up. Diagnosed with T1DM at the age of 39 when she was having frequent infections. She has had negative antibodies in the past 12/2021 Cpeptide 0.40 Current regimen: Tresiba 58 units Humalog 16 units prebreakfast and lunch and 16 units predinner . Not started Mounjaro. Too expensive dexcom sensor 3 average glucose: 175 14 day continuous glucose sensor report reviewed Glucose Management indicator 7.5 % Time CGM active 97.8 % TIme in ranges: 12 % very high (above 250) 29 % high (181-250) 58 % in range (70-180] 1 % low (69-55) 0 very low (below 54) Interpretation of CGMS readings shows glucose show hypoglycemia occurring predominantly after breakfastwith rise in blood sugar after lunch and to lesser degree after dinner Family history of T2DM in both Grandparents, her Sister and 2 children. hypoglycemia after breakfast and lunch but much less frequently Positive Family history of T2DM in both Grandparents, her Sister and 2 children. Has stable retinopathy eye exam has appt in Had appt in 08/2025 Has neuropathy: Has tingling in the feet occasional pain sees podiatry very 3 months Has nephropathy, on lisinopril 20 mg PO daily. alb/cr +. Sees nephrology eGFR 38 05/2024 Dr. Hoyt sees every 3 moths Has HLD, on Rosuvastatin 5 mg PO daily. last ldl 87 Denies history of CAD. Has murmur seen annually Denies symptoms of chest pain, dyspnea or claudication. Has had diabetes education. Has 2 sons in the area, 1 daughter in [place] and 1 . Diet/Carb counting: trys to balance eats alot of veg trying to cut back on rice, elminated pasta exercise: walks some Thyroid US: 09/03/2021 Right Thyroid Lobe: 4.4 x 2.1 x 1.8 cm, volume 8.6 mL. Previously 4.2 x 1.7 x 1.3 cm, volume 4.7 mL. Parenchyma: The gland echotexture is homogeneous. Thyroid vascularity is normal. Left Thyroid Lobe: 3.5 x 1.8 x 1.4 cm, volume 4.5 mL. Previously 4.0 x 1.8 x 1.2 cm, volume 4.6 mL. Parenchyma: The gland echotexture is homogeneous. Thyroid vascularity is normal. Isthmus: 0.42 cm in maximum AP dimension. Previously 0.46 cm. Estimated total number of nodules greater than or equal to 1 cm: 0. Has had diabetes education. Diet/Carb counting: Counts carbs with every meal. [facility] Medical History Uncontrolled type 2 diabetes mellitus with hyperglycemia, with long-term current use of insulin Transaminitis Heart murmur Vitamin D deficiency HLD (hyperlipidemia) Diabetic retinopathy Non-toxic multinodular goiter Dyslipidemia Hypertension Obesity (BMI 30-39.9) Diabetic polyneuropathy associated with type 1 diabetes mellitus Surgical History H/O colonoscopy H/O laser iridotomy History of carpal tunnel release History of ear surgery Hx of hysterectomy Family History Father No problems noted. Mother Hypertension Social History Alcohol intake: current Alcohol intake frequency: holidays/special occasions only Patient Tobacco Use Status: Former Tobacco user Years Smoked: 30+/- years Current occupational status: retired Current occupation: Right hand dominate Physical Exam Vital Signs: Last Vital Signs Pulse 68 10/02/25 09:14 BP 116/54 L 10/02/25 09:14 Pulse Ox 96 10/02/25 09:14 Oxygen Delivery Method Room Air 10/02/25 09:14 BMI result Body Mass Index 34.7 Const Other: Absence of Cushingoid features. Absence of acromegalic features. Neck exam reveals nl size thyroid about 15 gms. No thyroid nodules palpable. Heart S1 S2, Reg R/R. No M/R G. Skin exam reveals absence of vitiligo or acanthosis nigricans. No edema Visual exam of foot performed. No ulcerations or open lesions. No inter digit maceration or fissuring. No onychomycosis, no callouses. Sensation intact to monofilament exam. Vibratory sensation is normal with 128 Hz tuning fork. Pulses positive distally Results AMB Hemoglobin A1c AMB Hemoglobin A1c 8.6 % Last Edit by MIKE Marks on 10/02/25 09:35 Results Reviewed Results Reviewed: Laboratory Last Values Glucose (Clinic) 146 mg/dL (60-115) H 10/02/25 09:20 Assessment & Plan Assessment & Plan (1) Diabetic polyneuropathy associated with type 1 diabetes mellitus: Code(s): E10.42 - Type 1 diabetes mellitus with diabetic polyneuropathy Category: Medical (2) Uncontrolled type 2 diabetes mellitus with hyperglycemia, with long-term current use of insulin: Code(s): E11.65 - Type 2 diabetes mellitus with hyperglycemia; Z79.4 - rodent exterminator (current) use of insulin Category: Medical Plan: This 75-year-old black female with history of type 2 diabetes being managed basal-bolus insulin with fair glycemic control and no known microvascular or macrovascular complications. GAD65 antibodies were negative and patient has a positive family history for type 2 diabetes make a likely she has type 2 diabetes. She is having less hypoglycemia but has some post-lunch hyperglycemia which is sustained post-dinner Plan is to increase the pre lunch Humalog to 17 units . Control maybe optimize considering patient's age and comorbidities and risk of hypoglycemia. We talked about potential use of an insulin pump which the patient has used in the past but she is not interested in going back on it We will have patient follow up with primary care diabetes team in 6 weeks (3) Type 1 diabetes mellitus with hyperglycemia: Code(s): E10.65 - Type 1 diabetes mellitus with hyperglycemia Category: Medical Plan: This 75-year-old black female with history of type 2 diabetes being managed basal-bolus insulin with excellent improved glycemic control and no known microvascular or macrovascular complications. GAD65 antibodies were negative and patient has a positive family history for type 2 diabetes make a likely she has type 2 diabetes. She is having some hypoglycemia post-breakfast and post-lunch Plan is to decrease the Humalog before 16 units prior to breakfast and 18 units prior to lunch and further if patient experiences hypoglycemia. We will have patient follow up with primary care diabetes team in 6 weeks Plan Orders: Orders AMB Hemoglobin A1c Today E11.65 - Type 2 diabetes mellitus with hyperglycemia, Z79.4 - rodent exterminator (current) use of insulin Coding Level of Care Code Est Pt Level 4 (99493) Add On Problem Visit Only Diagnoses Diabetic polyneuropathy associated with type 1 diabetes mellitus E10.42 Uncontrolled type 2 diabetes mellitus with hyperglycemia, with long-term current use of insulin E11.65; Z79.4 Type 1 diabetes mellitus with hyperglycemia E10.65
[2025-10-02 09:14] VITALS: BP 116/54; PULSE 68; O2SAT 96; BMI 34.7
[2025-10-02 09:24] LABS: Glucose, Whole Blood 146 mg/dL (60-115)
--- OUTSIDE RECORDS SUMMARY | 2025-10-02 10:03 | XMS_ITS | Clinical Summary ---
Author Organization [facility] Address [address] [place] [address] [address] [place] [address] Phone Care Team Providers Care Standpipe Tender Name Role Phone OkLeda almeida SARA Primary Care Provider [phone] Allergies Active Allergy Reactions Criticality Noted Date [...] 08/25/2023 09/15/202309/15 Pain of shoulder region 08/25/2023 12/0 02/2023 Systolic murmur 08/25/2023 09/15/2023 09/15/2023 Type 1 diabetes mellitus 08/25/2023 09/15/202302/2023 Neuropathy due to diabetes mellitus 11/25/2017 09/15/2023 Carpal tunnel syndrome 07/11/2014 09/15/202309/15 Ulnar neuropathy 07/11/2014 09/15/2023 09/15/2023 Immunizations Immunization Administration Dates Next Due DT 09/11/2005,05/12/2002 Influenza Whole 07/17/2020,07/20/2019 Influenza, Unspecified 08/08/2022,2020,07/23/2018,07/12/2018 ,07/24/2017,08/01/2016,06/22/2015,201 0,07/24/2006 MMR 07/09/2016 Moderna SARS-COV-2 01/23/2022,09/18/2021,2 021,02/06/2021 [...] Visit [facility] [address] [place] [address] Donavan Hoyt MD [address] [facility] [address] [place] [phone] Health Maintenance Due Date Last Done Comments [...] age to complete this topic Insurance [address] [place] [id number] Medicare [facility] [address] [place] [id number] Medicare [facility] Care Teams Standpipe Tender Relationship Specialty Start Date End Date Leda Euceda NP [address] [place] [phone] PCP - General Nurse Practitioner 08/27/23
== END 2025-10-02 09:33 | disposition home or self-care (01) ==
LOC: HO.ENCR 09:08
PROVIDERS: PCP Internal Medicine; Visit Provider Internal Medicine Endocrinology, Diabetes & Metabolism
DX: E10.42 Type 1 diabetes mellitus with diabetic polyneuropathy (principal); E10.65 Type 1 diabetes mellitus with hyperglycemia; Z79.4 Long term (current) use of insulin
CPT/HCPCS: 99214; G2211

== ENCOUNTER → 2025-10-02 09:08 | Outpatient (BNVA) | payer MEDICARE, SELFPAY | PROVIDERS: PCP Internal Medicine; Visit Provider Internal Medicine Endocrinology, Diabetes & Metabolism | DX: E11.42 Type 2 diabetes mellitus with diabetic polyneuropathy (principal); E11.65 Type 2 diabetes mellitus with hyperglycemia; Z79.4 Long term (current) use of insulin | CPT/HCPCS: 82947; 83036; 99212 ==